=== PATIENT | female | born 1945 | race Caucasian/White ===

== ENCOUNTER 2016-04-15 06:48 | Day surgery (SDC) | payer MEDICARE, OTHER ==
[~2016-04-15] VITALS: Ht 172.7 cm; Wt 90.7 kg
[~2016-04-15 06:48] MED LIST: AC500T PO; ALPR.5T PO; ALPR1T PO; AMLO1TAB4 PO; ATEN-158 PO; CALC-80 PO; FENO48TA PO; FOLI0.4T2 PO; FOLI1TAB6 PO; FURO40TA4 PO; LANS30CA PO; LOSA1TAB19 PO; META800T5 PO; NFBIOT1000 PO; OMEG1CAP51 PO; SCR1T1 PO; TIOT18CA IH
[2016-04-15] MEDS ORDERED: LIDOCAINE 1% INJ 20 ML (XYLOCAINE) VIAL ONE (06:56)
[2016-04-15] MEDS ORDERED: HEParin (CATH LAB) 0 ML IV ONE (06:56)
[2016-04-15] MEDS ORDERED: NS IV 1000 ML 1,000 ML ONE (06:56)
[2016-04-15 07:22] VITALS: BP 181/88
[2016-04-15] MEDS ORDERED: NS IV 1000 ML 1,000 ML IV SCH (07:30)
[2016-04-15 07:31] LABS: RED BLOOD COUNT 4.29 10^6/uL (4.35-5.85); RED CELL DISTRIBUTION WIDTH 13.8 % (10.0-14.5); WHITE BLOOD COUNT 15.5 10^3/uL (4.3-11.0)
[2016-04-15 07:33] LABS: BILIRUBIN,URINE NEGATIVE (NEGATIVE); KETONES,URINE NEGATIVE (NEGATIVE); LEUKOCYTE ESTERASE ,URINE 3+ (NEGATIVE); NITRITE,URINE POSITIVE (NEGATIVE); PH,URINE 5 (5-9); PROTEIN,URINE 3+ (NEGATIVE); UROBILINOGEN,URINE 1 MG/DL (NORMAL)
[2016-04-15 07:43] LABS: INR 1.1 (0.8-1.4); PROTHROMBIN TIME PATIENT 14.2 SEC (12.2-14.7)
[2016-04-15 07:46] LABS: WBC,URINE 50-100 /HPF
[2016-04-15 07:54] LABS: ALANINE AMINOTRANSFERASE 12 U/L (0-55); ANION GAP 12 MMOL/L (5-14); ASPARTATE AMINO TRANSFERASE 16 U/L (5-34); BILIRUBIN,TOTAL 0.6 MG/DL (0.1-1.0); BLOOD UREA NITROGEN 14 MG/DL (7-18); BUN/CREATININE RATIO 20; CALCIUM 9.6 MG/DL (8.5-10.1); CARBON DIOXIDE 21 MMOL/L (21-32); CHLORIDE 98 MMOL/L (98-107); GFR ESTIMATED > 60; GLUCOSE 159 MG/DL (70-105); POTASSIUM 3.5 MMOL/L (3.6-5.0); SODIUM 131 MMOL/L (135-145); TOTAL PROTEIN 7.5 G/DL (6.4-8.2)
--- NOTE | 2016-04-15 08:27 | Diagnostic Imaging Report ---
Portable upright radiograph of the chest. INDICATION: Abnormal stress test. Hypertension. FINDINGS: There is increased opacity in the retrocardiac region. The right lung is clear. The heart size is normal. No effusion or pneumothorax. The mediastinum and liz appear unremarkable. Surgical clips in the neck and cervical spine fusion hardware seen. IMPRESSION: Indeterminate increased opacity in the retrocardiac region, is possibly an artifact of superimposed tissues on this portable radiograph. Correlate clinically and if there is concern for atelectasis or consolidation in the left lower lobe, then better evaluation of the lesion with PA and lateral radiographs would be recommended. Dictated by: Dictated on workstation # [id number]
== END 2016-04-15 08:40 | disposition home or self-care (01) ==
LOC: CATH 06:48
PROVIDERS: ATTEND Internal Medicine Cardiovascular Disease
DX: R94.39 Abnormal result of other cardiovascular function study (principal); I25.10 Atherosclerotic heart disease of native coronary artery without angina pectoris; I10 Essential (primary) hypertension; E78.5 Hyperlipidemia, unspecified; Z53.09 Procedure and treatment not carried out because of other contraindication; Z79.899 Other long term (current) drug therapy
CPT/HCPCS: 36415; 71010; 80053; 81000; 85027; 85610; 85730; 87081; 87088; 87186; 93005

== ENCOUNTER 2016-04-22 11:15 | Day surgery (SDC) | payer MEDICARE, OTHER ==
[2016-04-22] VITALS (11 sets, daily range): BP systolic 130–144; BP diastolic 52–70
[~2016-04-22] VITALS: Ht 172.7 cm; Wt 88.5 kg
--- OUTSIDE RECORDS SUMMARY | 2016-04-22 11:17 | XMS REPORT | Continuity of Care Document ---
Author Author [facility] Organization [facility] Address Unknown Phone Unavailable Care Team Providers Care Audit Reviewer Name Role Phone MICHAELA KESSLER MD PCP Insurance Providers Payer Name Policy Number Subscriber Name Relationship [employer] [id number] Lani Branch 18 Self / Same As Patient [id number] Lani Branch 18 Self / Same As Patient Advance Directives Directive Response Recorded Date/Time Advance Directives Yes 04/15/16 7:22am Health Care Power of News Wire Photo Operator No 04/15/16 7:22am Organ Donor Yes 04/15/16 7:22am Resuscitation Status Full Code 04/15/16 7:22am Problems No problem information available. Medications Current Home Medications Medication Dose Units Route Directions Days/Qty Instructions Start Date Atenolol 50 Mg 50 Mg Oral Daily 02/28/13 Losartan/Hydrochlorothiazide 1 Each 1 Tab Oral Daily 100-12.5MG TABLET 02/28/13 Furosemide (Lasix) 40 Mg 40 Mg Oral Daily 02/28/13 Fenofibrate 48 Mg 48 Mg Oral Daily 02/28/13 Amlodipine/Atorvast Brian 1 Each 1 Tab Oral Bedtime 10-20MG TABLET 02/28 Lansoprazole 30 Mg 30 Mg Oral Daily 02/28/13 Tiotropium [place] 1 Inh 1 Cap Inhalation Daily 02/28/13 Calcium Carbonate/Vitamin D3 1 Each 1 Tab Oral Daily 02/28/13 Acetaminophen 500 Mg 1,000 Mg Oral Every 8HRS as needed for Pain TAKES 2 (500MG) TABLETS NEEDED FOR PAIN 02/28/13 [place]-3 Fatty Acids/Fish Oil 1 Each 1,000 Mg Oral Daily 02/28/13 Metaxalone 800 Mg 800 Mg Oral Four Times Daily 02/28/13 Folic Acid 0.4 Mg 0.4 Mg Oral Daily 02/28/13 Alprazolam 0.5 Mg 0.25 Mg Oral Twice A Day as needed for Anxiety NEEDED FOR ANXIETY 02/28/13 Past Home Medications Medication Directions Ordered Status Sucralfate 1 Gm Tab, 1 Gm Oral Before Meals And At Bedtime 02/28/13 Discontinued Folic Acid/Mv,Fe,Other Min 1 Each Tablet, 1 Tab Oral Daily 02/28/13 Discontinued Alprazolam Unknown Strength Tablet, Unknown Dose Oral Twice A Day as needed for Anxiety 02/28/13 Discontinued Biotin 1,000 Mcg Tablet, 1000 Mcg Oral Daily 02/28/13 Discontinued Social History Social History Problem Response Recorded Date/Time Recent Foreign Travel No 04/15/2016 7:22am Recent Infectious Disease Exposure No 04/15/2016 7:22am Smoking Status Former Smoker 04/15/2016 7:22am Query Response Start Date Stop Date Smoking Status Former Smoker Hospital Discharge Instructions No hospital discharge instructions. Plan of Care Discharge Date 04/15/16 8:40am Prescriptions See Medication Section Functional Status No functional status results. Allergies, Adverse Reactions, Alerts No known allergies. Immunizations No immunization records. Vital Signs Acute Vital Signs Vital Response Date/Time Temperature (Fahrenheit) 102.2 degrees F (97.6 - 99.5) 04/15/2016 8:39am Temperature (Calculated Celsius) 39.45210 degrees C (36.4 - 37.5) 04/15/2016 7:22am Temperature Source Tympanic 04/15/2016 8:39am Pulse Rate (adult) 103 bpm (60 - 90) 04/15/2016 7:22am Respiratory Rate 16 bpm (12 - 24) 04/15/2016 7:22am O2 Sat by Pulse Oximetry 94 % (88 - 100) 04/15/2016 7:22am Blood Pressure 181/88 mm Hg 04/15/2016 7:22am Blood Pressure Mean 119 mm Hg 04/15/2016 7:22am Pain Numeric Pain Scale 0-No Pain 04/15/2016 7:22am Height (Feet) 5 feet 04/15/2016 7:24am Height (Inches) 8.00 inches 04/15/2016 7:24am Height (Calculated Centimeters) 172.394595 cm 04/15/2016 7:24am Weight (Pounds) 200 pounds 04/15/2016 7:24am Weight (Ounces) 0.0 oz 04/15/2016 7:24am Weight (Calculated Grams) 83959.48 gm 04/15/2016 7:24am Weight (Calculated Kilograms) 90.932140 kilograms 04/15/2016 7:24am Calculated BMI 30.4 04/15/2016 7:24am Results Pending Laboratory Results Test Name Collection Date/Time Procedures Procedure Status Date Provider(s) Tracing only of electrocardiogram Active 04/15/16 YANCY MAC MD Encounters Encounter Location Arrival/Admit Date Discharge/Depart Date Attending Provider Departed [facility] 04/15/16 6:48am 8:40am YANCY MAC MD Registered Clinic [facility] 03/18/16 7:46am YANCY MAC MD
--- OUTSIDE RECORDS SUMMARY | 2016-04-22 11:18 | XMS REPORT | Continuity of Care Document ---
Author Author [facility] Organization [facility] Address Unknown Phone Unavailable Care Team Providers Care Pump Machine Operator Name Role Phone MICHAELA KESSLER MD PCP Insurance Providers Payer Name Policy Number Subscriber Name Relationship [employer] [id number] Lani Branch 19 Self / Same As Patient [id number] Lani Branch 18 Self / Same As Patient Advance Directives Directive Response Recorded Date/Time Advance Directives Yes 04/15/16 7:22am Health Care Power of Hot Blast Worker No 04/15/16 7:22am Organ Donor Yes 04/15/16 [...] Mg 30 Mg Oral Daily 02/28/13 Tiotropium [place] 1 Inh 1 Cap Inhalation Daily 02/28/13 Calcium Carbonate/Vitamin D3 1 Each 1 Tab Oral Daily 02/28/13 Acetaminophen 500 Mg 1,000 Mg Oral Every 8HRS as needed for Pain TAKES 2 (500MG) TABLETS NEEDED FOR PAIN 02/28/13 [place]-3 Fatty Acids/Fish Oil 1 Each 1,000 Mg [...] - 99.5) 04/15/2016 8:39am Temperature (Calculated Celsius) 39.42566 degrees C (36.4 - 37.5) 04/15/2016 7:22am [...] 8.00 inches 04/15/2016 7:24am Height (Calculated Centimeters) 172.171210 cm 04/15/2016 7:24am Weight (Pounds) 200 pounds 04/15/2016 7:24am Weight (Ounces) 0.0 oz 04/15/2016 7:24am Weight (Calculated Grams) 54743.48 gm 04/15/2016 7:24am Weight (Calculated Kilograms) 90.882663 kilograms 04/15/2016 7:24am Calculated BMI 30.4 04/15/2016 7:24am Results Pending Laboratory Results Test Name Collection Date/Time Procedures Procedure Status Date Provider(s) Tracing only of electrocardiogram Active 04/15/16 YANCY MAC MD Encounters Encounter Location Arrival/Admit Date Discharge/Depart Date Attending Provider Departed [facility] 04/15/16 6:48am 8:40am YANCY MAC MD Registered Clinic [facility] 03/18/16 7:46am YANCY MAC MD
[2016-04-22] MEDS ORDERED: LIDOCAINE 1% INJ 20 ML (XYLOCAINE) VIAL ONE (11:26)
[2016-04-22] MEDS ORDERED: NS IV 1000 ML 1,000 ML ONE (11:26)
[2016-04-22] MEDS ORDERED: HEParin (CATH LAB) 2,000 ML IV ONE (11:27)
[2016-04-22] MEDS ORDERED: NS IV 1000 ML 1,000 ML IV SCH ×2 (11:39→13:15)
[2016-04-22 12:00] LABS: BILIRUBIN,URINE NEGATIVE (NEGATIVE); KETONES,URINE NEGATIVE (NEGATIVE); LEUKOCYTE ESTERASE ,URINE 3+ (NEGATIVE); NITRITE,URINE POSITIVE (NEGATIVE); PH,URINE 7 (5-9); PROTEIN,URINE 2+ (NEGATIVE); UROBILINOGEN,URINE NORMAL (NORMAL)
[2016-04-22 12:02] LABS: MEAN PLATELET VOLUME 8.3 FL (7.4-10.4); RED BLOOD COUNT 4.38 10^6/uL (4.35-5.85); RED CELL DISTRIBUTION WIDTH 14.2 % (10.0-14.5); WHITE BLOOD COUNT 5.5 10^3/uL (4.3-11.0)
[2016-04-22 12:21] LABS: ALANINE AMINOTRANSFERASE 10 U/L (0-55); ALBUMIN 3.8 G/DL (3.2-4.5); ANION GAP 9 MMOL/L (5-14); ASPARTATE AMINO TRANSFERASE 21 U/L (5-34); BILIRUBIN,TOTAL 0.2 MG/DL (0.1-1.0); BLOOD UREA NITROGEN 14 MG/DL (7-18); BUN/CREATININE RATIO 19; CALCIUM 9.6 MG/DL (8.5-10.1); CARBON DIOXIDE 23 MMOL/L (21-32); CHLORIDE 104 MMOL/L (98-107); CREATININE SERUM 0.74 MG/DL (0.60-1.30); GFR ESTIMATED > 60; GLUCOSE 96 MG/DL (70-105); POTASSIUM 4.5 MMOL/L (3.6-5.0); SODIUM 136 MMOL/L (135-145); TOTAL PROTEIN 6.9 G/DL (6.4-8.2)
[2016-04-22 12:25] LABS: WBC,URINE 50-100 /HPF
[2016-04-22] MEDS ORDERED: MIDAZOLAM 5 MG/5 ML (VERSED) VIAL ONE (12:26)
[2016-04-22] MEDS ORDERED: fentaNYL INJECTION 100 MCG/2 ML AMP ONE (12:27)
--- NOTE | 2016-04-22 12:52 | Cardiac Procedure Note-CS/ASA ---
Pre-Procedure Note Pre-Op Procedure Note H&P Reviewed The H&P was reviewed, patient examined and no changes noted. Date H&P Reviewed: Apr 22, 2016 Time H&P Reviewed: 12:52 Conscious Sedation Pre-Proced Time Reviewed: 12:52 ASA Class: 3 Airway Mallampati Classification: ([place] appropriate class) I. II. III, IV Lungs Heart ASA score ASA 1: a normal healthy patient ASA 2: a patient with a mild systemic disease (mid diabetes, controlled hypertension, obesity x ASA 3: a patient with a severe systemic disease that limits activity (angina , COPD, prior Myocardial infarction) ASA 4: a patient with an incapacitating disease that is a constant threat to life (CHF, renal failure) ASA 5: a moribund patient not expected to survive 24 hrs. (ruptured aneurysm) ASA 6: a declared brain patient whose organs are being harvested. For emergent operations, add the letter E after the classification Grade 3 Sedation Plan: Analgesia, Amnesia, Plan communicated to team members, Discussed options with patient/fam, Discussed risks with patient/fam Note The patient is an appropriate candidate to undergo the planned procedure, sedation, and anesthesia. The patient immediately re-assessed prior to indication. YANCY MAC MD Apr 22, 2016 12:52
[2016-04-22] MEDS ORDERED: PATIENT MAY USE OWN MEDS, ALL PO SCH (13:15)
--- NOTE | 2016-04-22 13:17 | Discharge Inst-Post CATH ---
Discharge Inst-CATH Post Cardiac Cath D/C Inst Follow Up/Plan Appointment with Dr Hauser's office in 2-4 weeks CARDIAC CATH DISCHARGE INSTRUCTIONS *Hold Metformin for 48 hours post heart cath. ACTIVITY * Go Home directly and rest. * Limit activity of the leg (or wrist if it was used) for 7 days including aerobics, swimming, jogging, bicycling, etc. * Restrict stair-climbing for 7 days if possible, if not, climb up with your non -cath leg, then bring together on the same step. * Avoid lifting, pushing, pulling or excessive movement of the affected extremity for 7 days. * Customary sexual activity may be resumed after 2 days-use caution not to use a position that strains or causes pain to the affected extremity. * No driving for 24 hours. * NO SMOKING. * Avoid straining for bowel movements for 7 days. * Gentle walking on level ground is allowed. * Returning to work will depend on the type of procedure and the results. Your doctor will discuss this with you. CALL YOUR DOCTOR FOR ANY OF THE FOLLOWING: *If bleeding from the puncture site occurs- Apply gentle pressure to site with clean cloth and call your doctor or EMS. * If a knot or lump forms under the skin, increases in size, or causes pain. * If bruising appears to be worsening or moving further down your leg instead of disappearing. * Temperature above 101 F. CARE OF YOUR GROIN INCISION; * Bruising or purple discoloration of the skin near the puncture site is common. * You may shower only, no bathtub bathing for 5 days. Be careful to avoid slipping as your leg may feel stiff. * If a closure device was used on your femoral artery, please see the attached guide regarding care of the device and your leg. * REMOVE the dressing from your groin the next day after your procedure in the shower. CARE OF YOUR WRIST INCISION; * Bruising or purple discoloration of the skin near the puncture site is common. * You may shower. * DO NOT submerge wrist. * Remove dressing in 24 hours. YANCY HAUSER MD Apr 22, 2016 13:17
[2016-04-22] MEDS ORDERED: ATROPINE INJECTION 1 MG/10 ML SYR (ABBOTT) ONE (13:29)
--- NOTE | 2016-04-22 16:12 | Diagnostic Imaging Report ---
EXAMINATION: Portable upright radiograph of the chest. INDICATION: Infiltrate. FINDINGS: There is interstitial thickening, suggestive of pulmonary vascular congestion, more prominent in the left lung base. The heart size is at the upper limits of normal. There is no effusion or pneumothorax. The mediastinum and liz appear unremarkable. There is cervical spine fusion hardware and surgical clips seen. IMPRESSION: Prominent interstitial markings, more in the left lower lung, likely related to vascular congestion. An early left basilar infiltrate is not excluded. Correlate clinically and with followup exams. Dictated by: Dictated on workstation # [id number]
--- NOTE | 2016-04-23 13:00 | DISCHARGE SUMMARY ---
PROCEDURE PHYSICIAN: YANCY MAC DATE OF PROCEDURE: 04/22/2016 REFERRING PHYSICIAN: Dr. Crow Maldonado INDICATION: Coronary artery disease. BRIEF HISTORY: Mrs. Lamar is a 70-year-old lady with history of coronary artery disease. She had an abnormal stress test. She was scheduled for left heart catheterization, possible PTCA. PROCEDURE NOTE: After explaining the procedure to the patient, all pros and cons were explained. All questions were answered. The patient signed a consent, then she was placed on the cardiac catheterization laboratory. The right groin was prepped in a sterile fashion. Local anesthesia applied to the right groin. 6-Spanish sheath was placed in the right femoral artery. A combination of right and left Rena catheter were used to access the right and left coronary system. Multiple views were obtained. Pigtail catheter advanced to the left ventricular cavity. Pressure was measured, pullback LV to aorta was done. The aortic arch angiogram was done. At the end of the procedure, sheath was removed. Mynx device deployed. Hemostasis achieved. FINDINGS: HEMODYNAMICS: LV pressure is 149/16, end-diastolic pressure of 16, aortic pressure 145/58, mean of 54. No significant gradient across the aortic valve. ANATOMY: 1. Left main coronary artery is bifurcating to left anterior descending artery and left circumflex artery with mild disease, nonobstructive disease. 2. The left anterior descending artery, calcified artery with 40% stenosis proximal and midportion of the LAD, nonobstructive disease. 3. Left circumflex artery is moderate in size with no obstructive disease. 4. Right coronary artery is a calcified artery, dominant artery with 40 to 50% stenosis at the midportion, nonobstructive disease. Did not change significantly compared to 2013. 5. Left ventricular, end diastolic pressure is slightly elevated. 6. Aortic arch angiogram was done in the left anterior oblique. The aortic arch is normal in size. No dissection or aneurysm. Origin of the innominate artery carotid artery and subclavian artery appeared normal. CONCLUSION: 1. Calcified coronary system with 40% stenosis in the proximal and mid LAD, 40 to 50% stenosis at the mid right coronary artery, nonobstructive disease. 2. Slightly elevated left ventricular, end diastolic pressure. 3. Normal aortic arch and great neck vessels; some calcification at the body of the right dominant artery and origin of the left carotid calcification at the mid right innominate artery and origin of the right carotid artery. CONCLUSION: 1. 40% stenosis at the proximal and mid LAD, heavily calcified artery. 2. 40 to 50% stenosis mid right coronary artery, heavily calcified artery. 3. Slightly elevated left ventricular, end diastolic pressure. 4. Significant calcification noted in the body of the right innominate artery and the origin of the right carotid artery. Normal aortic arch otherwise. DISCUSSION AND RECOMMENDATION: Medical therapy is recommended. No intervention is needed. FINAL DIAGNOSES: 1. Coronary artery disease. 2. Hypertension. 3. Hyperlipidemia. 4. Carotid stenosis Job ID: [id number] Dictated Date: 04/22/2016 13:24:01 Track Repair Worker Date: 04/23/2016 12:58:13/thalia
== END 2016-04-22 20:00 | disposition home or self-care (01) ==
LOC: CATH 11:15 → ICU 14:10 → CATH 20:00
PROVIDERS: ATTEND Internal Medicine Cardiovascular Disease
DX: R94.39 Abnormal result of other cardiovascular function study (principal); I25.10 Atherosclerotic heart disease of native coronary artery without angina pectoris; I25.84 Coronary atherosclerosis due to calcified coronary lesion; I10 Essential (primary) hypertension; E78.5 Hyperlipidemia, unspecified; I65.23 Occlusion and stenosis of bilateral carotid arteries; Z87.891 Personal history of nicotine dependence; Z82.49 Family history of ischemic heart disease and other diseases of the circulatory system; Z79.899 Other long term (current) drug therapy
CPT/HCPCS: 36221; 36415; 71010; 80053; 81000; 85027; 87081; 87088; 87186; 93458

== ENCOUNTER → 2016-04-29 | Outpatient (CLI) | payer MEDICARE, OTHER ==
--- OUTSIDE RECORDS SUMMARY | 2016-04-29 10:44 | XMS REPORT | Continuity of Care Document ---
Author Author [facility] Organization [facility] Address Unknown Phone Unavailable Care Team Providers Care Rn Private Duty Name Role Phone MICHAELA KESSLER MD PCP Insurance Providers Payer Name Policy Number Subscriber Name Relationship [employer] [id number] Lani Lamar 19 Self / Same As Patient [facility] [id number] Lani Lamar Self / Same As Patient Advance Directives Directive Response Recorded Date/Time Advance Directives Yes 04/22/16 12:06pm Health Care Power of Digital Marketing Project Manager Y shree Lamar son 04/22/16 12:06pm Organ Donor Yes 04/22/16 12:06pm Resuscitation Status Full Code 04/22/16 12:06pm Problems Active Problems Medical Problem Onset Date Status Dyspnea Unknown Acute Medications Current Home Medications Medication Dose Units Route Directions Days/Qty Instructions Start Date Atenolol 50 Mg 50 Mg Oral Daily 02/28/13 Losartan/Hydrochlorothiazide 1 Each 1 Tab Oral Daily 02/28/13 Furosemide (Lasix) 40 Mg 40 Mg Oral Twice Per Week 02/28/13 Fenofibrate 48 Mg 48 Mg Oral Daily 02/28/13 Amlodipine/Atorvast Brian 1 Each 1 Tab Oral Bedtime 10-20MG TABLET 02/28 Lansoprazole 30 Mg 30 Mg Oral Daily 02/28/13 Tiotropium [place] 1 Inh 1 Cap Inhalation Daily 02/28/13 Calcium Carbonate/Vitamin D3 1 Each 1 Tab Oral Daily 02/28/13 Acetaminophen 500 Mg 1,000 Mg Oral Every 8HRS as needed for Pain TAKES 2 (500MG) TABLETS NEEDED FOR PAIN 02/28/13 [place]-3 Fatty Acids/Fish Oil 1 Each 1,000 Mg [...] Response Recorded Date/Time Recent Foreign Travel No 04/22/2016 12:07pm Recent Infectious Disease Exposure No 04/22/2016 12:07pm Smoking Status Former Smoker 04/22/2016 12:08pm Type Used Cigarettes 04/23/2016 8:17am Query Response Start Date Stop Date Smoking Status Former Smoker Hospital Discharge Instructions Patient Instructions Physician Instructions Follow Up/Plan Appointment with Dr Hauser's office in 2-4 weeks CARDIAC CATH DISCHARGE INSTRUCTIONS *Hold Metformin for 48 hours post heart cath. ACTIVITY * Go Home directly and rest. * Limit activity of the leg (or wrist if it was used) for 7 days including aerobics, swimming, jogging, bicycling, etc. * Restrict stair-climbing for 7 days if possible, if not, climb up with your non-cath leg, then bring together on the same step. * Avoid lifting, pushing, pulling or excessive movement of the affected extremity for 7 days. * Customary sexual activity may be resumed after 2 days-use caution not to use a position that strains or causes pain to the affected extremity. * No driving for 24 hours. * NO SMOKING. * Avoid straining for bowel movements for 7 days. * Gentle walking on level ground is allowed. * Returning to work will depend on the type of procedure and the results. Your doctor will discuss this with you. CALL YOUR DOCTOR FOR ANY OF THE FOLLOWING: *If bleeding from the puncture site occurs- Apply gentle pressure to site with clean cloth and call your doctor or EMS. * If a knot or lump forms under the skin, increases in size, or causes pain. * If bruising appears to be worsening or moving further down your leg instead of disappearing. * Temperature above 101 F. CARE OF YOUR GROIN INCISION; * Bruising or purple discoloration of the skin near the puncture site is common. * You may shower only, no bathtub bathing for 5 days. Be careful to avoid slipping as your leg may feel stiff. * If a closure device was used on your femoral artery, please see the attached guide regarding care of the device and your leg. * REMOVE the dressing from your groin the next day after your procedure in the shower. CARE OF YOUR WRIST INCISION; * Bruising or purple discoloration of the skin near the puncture site is common. * You may shower. * DO NOT submerge wrist. * Remove dressing in 24 hours. Plan of Care Discharge Date 04/22/16 8:00pm Instructions/Education Provided Biventricular Cardiac Pacemaker Placement (DC) Prescriptions See Medication Section Follow-up Orders Chest Pa/Lat (2 View Functional Status Query Response Date Recorded Patient Orientation Person Place Time Situation April 23, 2016 8:17am Comprehension Ability Understands Concepts April 22, 2016 7:30pm Allergies, Adverse Reactions, Alerts No known allergies. Immunizations No immunization records. Vital Signs Acute Vital Signs Vital Response Date/Time Temperature (Fahrenheit) 97.8 degrees F (97.6 - 99.5) 04/22/2016 8:00pm Temperature (Calculated Celsius) 36.25496 degrees C (36.4 - 37.5) 04/22/2016 7:00pm Temperature Source Tympanic 04/22/2016 8:00pm Pulse Rate (adult) 68 bpm (60 - 90) 04/22/2016 8:00pm Respiratory Rate 15 bpm (12 - 24) 04/22/2016 8:00pm O2 Sat by Pulse Oximetry 95 % (88 - 100) 04/22/2016 8:00pm Blood Pressure 130/59 mm Hg 04/22/2016 8:00pm Blood Pressure Mean 82 mm Hg 04/22/2016 7:30pm Pain Numeric Pain Scale 0-No Pain 04/22/2016 8:00pm Height (Feet) 5 feet 04/22/2016 12:05pm Height (Inches) 8.00 inches 04/22/2016 12:05pm Height (Calculated Centimeters) 172.441864 cm 04/22/2016 12:05pm Weight (Pounds) 195 pounds 04/22/2016 12:05pm Weight (Ounces) 0.0 oz 04/22/2016 12:05pm Weight (Calculated Grams) 56073.51 gm 04/22/2016 12:05pm Weight (Calculated Kilograms) 88.780024 kilograms 04/22/2016 12:05pm Calculated BMI 29.7 04/22/2016 12:05pm Capillary Refill Capillary Refill Less Than 3 Seconds 04/22/2016 7:45pm Results Laboratory Results Test Name Result Units Flags Reference Collection Date/Time Result Date/ Time Comments White Blood Count 15.5 10^3/uL H 4.3-11.0 04/15/2016 7:04/15/2016 7: 35am Red Blood Count 4.29 10^6/uL L 4.35-5.85 04/15/2016 7:04/15/2016 7: 35am Hemoglobin 12.9 G/DL 11.5-16.0 04/15/2016 7:04/15/2016 7:35am Hematocrit 37 % 35-52 04/15/2016 7:04/15/2016 7:35am Mean Corpuscular Volume 86 FL 80-99 04/15/2016 7:04/15/2016 7: 35am Mean Corpuscular Hemoglobin 30 PG 25-34 04/15/2016 7:04/15/2016 7: 35am Mean Corpuscular Hemoglobin Concent 35 G/DL 32-36 04/15/2016 7:02/2017 7:35am Red Cell Distribution Width 13.8 % 10.0-14.5 04/15/2016 7:2016 7:35am Platelet Count 380 10^3/uL 130-400 04/15/2016 7:04/15/2016 7:35am Mean Platelet Volume 9.0 FL 7.4-10.4 04/15/2016 7:04/15/2016 7: 35am Prothrombin Time 14.2 SEC 12.2-14.7 04/15/2016 7:04/15/2016 7: 45am INR Comment 1.1 0.8-1.4 04/15/2016 7:04/15/2016 7:45am INTERPRETIVE DATA SUGGESTED THERAPEUTIC RANGE FOR INR'S: VENOUS THROMBOSIS, PULMONARY EMBOLISM, OR PREVENTION OF SYSTEMIC EMBOLISM (EG. IN ATRIAL FIBRILLATION): 2.0 - 3.0 MECHANICAL PROSTHETIC HEART VALVES: 2.5 - 3.5* *NOTE: INR'S UP TO 4.5 MAY BE NECESSARY IN SELECTED GROUPS OF HIGH RISK PATIENTS. [employer] CONSENSUS CONFERENCE ON ANTITHROMBOTIC THERAPY (2000). Activated Partial Thromboplast Time 41 SEC H 24-35 04/15/2016 7:02/2017 7:45am Urine Color YELLOW 04/15/2016 7:04/15/2016 7:48am Urine Clarity VERY CLOUDY * 04/15/2016 7:04/15/2016 7:48am Urine pH 5 5-9 04/15/2016 7:04/15/2016 7:48am Urine Specific [place] 1.025 * 1.016-1.022 04/15/2016 7:2016 7:48am Urine Protein 3+ * NEGATIVE 04/15/2016 7:04/15/2016 7:48am Urine Glucose (UA) NEGATIVE NEGATIVE 04/15/2016 7:04/15/2016 7: 48am Urine RBC (Auto) 5+ * NEGATIVE 04/15/2016 7:04/15/2016 7:48am Urine Ketones NEGATIVE NEGATIVE 04/15/2016 7:04/15/2016 7:48am Urine Nitrite POSITIVE * NEGATIVE 04/15/2016 7:04/15/2016 7:48am Urine Bilirubin NEGATIVE NEGATIVE 04/15/2016 7:04/15/2016 7: 48am Urine Urobilinogen 1 MG/DL NORMAL 04/15/2016 7:04/15/2016 7:48am Urine Leukocyte Esterase 3+ * NEGATIVE 04/15/2016 7:04/15/2016 7: 48am Urine RBC 10-25 /HPF * 04/15/2016 7:04/15/2016 7:48am MICROSCOPIC EXAM DONE ON 2ML SPECIMEN Urine WBC 50-100 /HPF * 04/15/2016 7:04/15/2016 7:48am Urine Bacteria LARGE /HPF * 04/15/2016 7:04/15/2016 7:48am Urine Squamous Epithelial Cells 5-10 /HPF 04/15/2016 7:2016 7:48am Urine Crystals NONE /LPF 04/15/2016 7:04/15/2016 7:48am Urine Casts NONE /LPF 04/15/2016 7:04/15/2016 7:48am Urine Mucus NEGATIVE /LPF 04/15/2016 7:04/15/2016 7:48am Urine Culture Indicated YES 04/15/2016 7:04/15/2016 7:48am Sodium Level 131 MMOL/L L 135-145 04/15/2016 7:04/15/2016 7:56am Potassium Level 3.5 MMOL/L L 3.6-5.0 04/15/2016 7:04/15/2016 7:56am Chloride Level 98 MMOL/L 98-107 04/15/2016 7:04/15/2016 7:56am Carbon Dioxide Level 21 MMOL/L 21-32 04/15/2016 7:04/15/2016 7: 56am Anion Gap 12 MMOL/L 5-14 04/15/2016 7:04/15/2016 7:56am Blood Urea Nitrogen 14 MG/DL 7-18 04/15/2016 7:04/15/2016 7:56am Creatinine 0.70 MG/DL 0.60-1.30 04/15/2016 7:04/15/2016 7:56am BUN/Creatinine Ratio 20 04/15/2016 7:04/15/2016 7:56am Estimat Glomerular Filtration Rate > 60 04/15/2016 7:2016 7:56am GFR INTERPRETIVE DATA UNITS FOR ESTIMATED GFR (eGFR): mL/min/1.73 M2 REFERENCE RANGE FOR ESTIMATED GFR (eGFR) eGFR NORMAL eGFR >60 MODERATELY DECREASED eGFR 30-59 SEVERLY DECREASED eGFR 15-29 KIDNEY FAILURE <15 (OR DIALYSIS) Glucose Level 159 MG/DL H 70-105 04/15/2016 7:04/15/2016 7:56am Calcium Level 9.6 MG/DL 8.5-10.1 04/15/2016 7:24am 04/15/2016 7:56am Total Bilirubin 0.6 MG/DL 0.1-1.0 04/15/2016 7:24am 04/15/2016 7:56am Alkaline Phosphatase 81 U/L 40-136 04/15/2016 7:24am 04/15/2016 7:56am Aspartate Amino Transf (AST/SGOT) 16 U/L 5-34 04/15/2016 7:24am 2016 7:56am Alanine Aminotransferase (ALT/SGPT) 12 U/L 0-55 04/15/2016 7:24am 04/15 7:56am Total Protein 7.5 G/DL 6.4-8.2 04/15/2016 7:24am 04/15/2016 7:56am Albumin 4.0 G/DL 3.2-4.5 04/15/2016 7:24am 04/15/2016 7:56am Pending Laboratory Results Test Name Collection Date/Time Microbiology Results Procedure Source Result Collection Date/Time Result Date/Time MRSA Screen Nasal MRSA not isolated 04/15/2016 7:24am 04/16/2016 2:06pm Urine Culture Urine, Clean Catch ESCHERICHIA COLI 04/15/2016 7:19am 2016 9:17am Procedures Procedure Status Date Provider(s) Tracing only of electrocardiogram Completed 04/15/16 YANCY HAUSER MD Encounters Encounter Location Arrival/Admit Date Discharge/Depart Date Attending Provider Departed [facility] 04/22/16 11:15am 04/22/16 8:00pm YANCY HAUSER MD Departed [facility] 04/15/16 6:48am 8:40am YANCY HAUSER MD Recent Diagnosis Dyspnea
--- NOTE | 2016-04-29 11:20 | Diagnostic Imaging Report ---
INDICATION: Shortness of breath. EXAMINATION: PA and lateral chest. FINDINGS: There is a consolidation at the left posterior medial lung base. This appears more organized than on the comparison study from 04/22/2016. There are no effusions or pneumothoraces. IMPRESSION: Consolidating infiltrate in the left medial lung base is suspicious for pneumonia. Dictated by: Dictated on workstation # [id number]
== END ==
LOC: RAD 10:40
PROVIDERS: ATTEND Physician Assistant
DX: R06.00 Dyspnea, unspecified (principal)
CPT/HCPCS: 71020

== ENCOUNTER 2016-10-05 09:49 | Emergency (ER) | payer MEDICARE, OTHER ==
[~2016-10-05] VITALS: Ht 170.2 cm; Wt 77.1 kg
[2016-10-05] MEDS ORDERED: DIAZEPAM 5 MG (VALIUM) TABLET PO ONE (10:30)
--- NOTE | 2016-10-05 10:47 | ED Lower Extremity ---
General Chief Complaint: Lower Extremity Stated Complaint: RT KNEE PAIN Nursing Triage Note: pt reports r knee pain since wednesday. pt states she was walking and heard a pop. Nursing Sepsis Screen: No Definite Risk Source: patient Exam Limitations: no limitations History of Present Illness Time seen by provider: 10:05 Initial Comments This 70-year-old woman presents to emergency room with complaints of right knee pain that has been problematic over the last several days. Pain is in the anterior portion of the knee and she sometimes feels like her knee "gives out". She has been using a neoprene sleeve and ice. She has taken Tylenol for the pain. Her primary care provider was not immediately available due to the holiday. Allergies and Home Medications Allergies Coded Allergies: No Known Drug Allergies (Unverified , 02/28/13) Home Medications Acetaminophen 500 Mg Tablet, 1,000 MG PO Q8H PRN for PAIN, (Reported) TAKES 2 (500MG) TABLETS NEEDED FOR PAIN Alprazolam 0.5 Mg Tablet, 0.25 MG PO BID PRN for ANXIETY, (Reported) NEEDED FOR ANXIETY Amlodipine/Atorvast Brian 1 Each Tablet, 1 TAB PO HS, (Reported) 10-20MG TABLET Atenolol 50 Mg Tab, 50 MG PO DAILY, (Reported) Calcium Carbonate/Vitamin D3 1 Each Tablet, 1 TAB PO DAILY, (Reported) Fenofibrate 48 Mg Tab, 48 MG PO DAILY, (Reported) Folic Acid 0.4 Mg Tablet, 0.4 MG PO DAILY, (Reported) Furosemide 40 Mg Tablet, 40 MG PO TWICE PER WEEK, (Reported) Lansoprazole 30 Mg Capsule.dr, 30 MG PO DAILY, (Reported) Losartan/Hydrochlorothiazide 1 Each Tablet, 1 TAB PO DAILY, (Reported) Metaxalone 800 Mg Tablet, 800 MG PO QID, (Reported) [place]-3 Fatty Acids/Fish Oil 1 Each Capsule, 1,000 MG PO DAILY, (Reported) Tiotropium [place] 1 Inh Aerp, 1 CAP IH DAILY, (Reported) Constitutional: no symptoms reported : No Musculoskeletal: see HPI Skin: no symptoms reported Psychiatric/Neurological: No Symptoms Reported Past Rhhrkdx-Ofrspl-Zlfxfj Hx Patient Social History Alcohol Use: Denies Use Recreational Drug Use: No Smoking Status: Former Smoker Type Used: Cigarettes Recent Foreign Travel: No Contact w/Someone Who Travel: No Recent Infectious Disease Expo: No Immunizations Up To Date Date of Pneumonia Vaccine: Jan 16, 2014 Date of Influenza Vaccine: Jan 27, 2016 Surgeries HX Surgeries: Yes Surgeries: Appendectomy, Section, Gallbladder, Hysterectomy, Vascular Surgery (right CEA) Respiratory Hx Respiratory Disorders: No Cardiovascular Hx Cardiac Disorders: Yes Cardiac Disorders: Chronic Edema/Swelling, High Cholesterol Neurological Hx Neurological Disorders: No Reproductive System : No Genitourinary Hx Genitourinary Disorders: No Gastrointestinal Hx Gastrointestinal Disorders: No Musculoskeletal Hx Musculoskeletal Disorders: No Endocrine Hx Endocrine Disorders: No HEENT HX ENT Disorders: No Cancer Hx Cancer: No Psychosocial Hx Psychiatric Problems: Yes Behavioral Health Disorders: Anxiety Physical Exam Vital Signs Vital Sign - Last 12Hours 10/05/16 10:02 Temp 97.9 Pulse 65 Resp 18 B/P (MAP) 160/77 Pulse Ox 97 Capillary Refill : Less Than 3 Seconds General Appearance: WD/WN, no apparent distress HEENT: normal ENT inspection Cardiovascular: regular rate, rhythm, no edema, no murmur Respiratory: lungs clear, normal breath sounds, no respiratory distress, no accessory muscle use Legs: bilateral leg non-tender, bilateral leg normal inspection, bilateral leg normal range of motion, bilateral leg no evidence of injury Knees: left knee non-tender, left knee normal inspection, bilateral knee normal range of motion, bilateral knee swelling (mild effusion bilaterally), right knee other (tenderness to palpation in the lateral joint space and inferior to the patella. Pain with movement of the patella as well. There is pain beneath the patella and palpable crepitus with range of motion of the knee) Ankles: bilateral ankle normal inspection, bilateral ankle no evidence of injury Neurologic/Tendon: normal sensation, normal motor functions, normal tendon functions Neurologic/Psychiatric: chief design branch II-XII nml as tested, no motor/sensory deficits, alert, normal mood/affect, oriented x 3 Skin: normal color, warm/dry Progress/Results/Core Measures Results/Orders My Orders Orders - ARNALDO CADET MD Knee, Right, 4 Views Or > (10/05/16 10:11) Diazepam Tablet (Valium Tablet) (10/05/16 10:30) Vital Signs/I&O Vital Sign - Last 12Hours 10/05/16 10:02 Temp 97.9 Pulse 65 Resp 18 B/P (MAP) 160/77 Pulse Ox 97 Blood Pressure Mean: 104 Progress Note : Progress Note No significant abnormalities were found on x-ray to account for patient's pain. She was advised to treat with NSAID therapy and follow up with her primary care provider for further assessment. MRI may need to be considered for assessment of soft tissue injury if NSAID therapy is not helpful. Diagnostic Imaging Diagonstic Imaging: Xray Plain Films/CT/US/NM/MRI: knee Comments X-rays of the right knee viewed by me and report reviewed. See report below: NAME: MERY BRANCH [facility] REC#: [id number] PT STATUS: REG ER : 1945 PHYSICIAN: ARNALDO CADET MD ADMIT DATE: 10/05/16/ER Draft Date of Exam:10/05/16 KNEE, RIGHT, 4 VIEWS OR > EXAMINATION: Four views of the right knee. INDICATION: Right knee pain. FINDINGS: There is mild narrowing of the joint space in the medial compartment. Small osteophyte formation at the superior aspect of the patella is seen. No fracture, dislocation, or radiopaque foreign body is noted. There is a small suprapatellar effusion suggested. IMPRESSION: Mild degenerative changes. Small suprapatellar effusion. Dictated on workstation # [id number] Dict: 10/05/16 1042 Trans: 10/05/16 1051 [id number] Interpreted by: MISTI LI MD Departure Impression Impression: Primary Impression: Right knee pain Qualified Codes: M25.561 - Pain in right knee Disposition: 01 HOME, SELF-CARE Condition: Improved Departure-Patient Inst. Decision time for Depature: 10:58 Referrals: MICHAELA KESSLER MD (PCP/Family) Primary Care Physician Patient Instructions: Knee Pain Add. Discharge Instructions: Try using NSAID therapy with naproxen up to 500 mg twice daily or ibuprofen up to 600 mg every 6 hours as needed for pain. Add Tylenol (acetaminophen) up to 1000 mg every 6 hours as needed for additional pain relief. Compressive wrapping, elevation, and icing may also be beneficial. Follow-up with your primary care provider soon as possible. If treatment with NSAIDs is not effective after a week or two, MRI may be necessary for further evaluation of your knee. All discharge instructions reviewed with patient and/or family. Voiced understanding. ARNALDO CADET MD Oct 05, 2016 10:47
--- NOTE | 2016-10-05 10:52 | Diagnostic Imaging Report ---
EXAMINATION: Four views of the right knee. INDICATION: Right knee pain. FINDINGS: There is mild narrowing of the joint space in the medial compartment. Small osteophyte formation at the superior aspect of the patella is seen. No fracture, dislocation, or radiopaque foreign body is noted. There is a small suprapatellar effusion suggested. IMPRESSION: Mild degenerative changes. Small suprapatellar effusion. Dictated by: Dictated on workstation # [id number]
[2016-10-05 11:12] VITALS: BP 135/78
== END 2016-10-05 11:12 | disposition home or self-care (01) ==
LOC: EDUNIT# 09:49 → ER 09:51
DX: M25.561 Pain in right knee (principal); E78.00 Pure hypercholesterolemia, unspecified; R60.0 Localized edema; F41.9 Anxiety disorder, unspecified; Z87.891 Personal history of nicotine dependence
CPT/HCPCS: 73564; 99283

== ENCOUNTER 2016-11-30 09:44 | Outpatient (CLI) | payer MEDICARE, OTHER ==
[~2016-11-30] VITALS: Ht 170.2 cm; Wt 98.9 kg
[2016-11-30 10:01] VITALS: BP 127/69
== END 2016-11-30 10:20 ==
LOC: PREOP 09:44
PROVIDERS: ATTEND Orthopaedic Surgery
DX: Z01.818 Encounter for other preprocedural examination (principal); S83.281A Other tear of lateral meniscus, current injury, right knee, initial encounter; S83.241A Other tear of medial meniscus, current injury, right knee, initial encounter; X58.XXXA Exposure to other specified factors, initial encounter; Y99.8 Other external cause status
CPT/HCPCS: 87081

== ENCOUNTER 2016-12-02 09:54 | Day surgery (SDC) | payer MEDICARE, OTHER ==
--- NOTE | 2016-11-24 14:02 | HISTORY AND PHYSICAL ---
DATE OF SERVICE: REASON FOR ADMISSION: Outpatient surgery on 12/02/2016 for right knee arthroscopy. HISTORY OF PRESENT ILLNESS: The patient is a 70-year-old female with a 2-month history of progressively worsening right knee pain and swelling. She was walking and heard a pop. She underwent an injection, which provided only temporary relief of her symptoms. She has had continued knee pain with swelling, catching and locking. She reports functional impairment and due to failure to improve with conservative measures patient has elected to proceed with surgical intervention. REVIEW OF SYSTEMS: No chest pain. No shortness of breath. No dysuria. PAST MEDICAL HISTORY: Coronary artery disease, COPD, hyperlipidemia, hypertension and osteoarthritis. PAST SURGICAL HISTORY: Appendectomy, , cholecystectomy, hysterectomy and vascular. FAMILY HISTORY: Noncontributory. PRIMARY CARE PROVIDER: Dr. Maldonado. MEDICATIONS: Alprazolam, atenolol, Cad[place], TriCor, folic acid, losartan, Lasix, metaxalone, Metanx, Prevacid, Spiriva, calcium and Tylenol. SOCIAL HISTORY: The patient is a former smoker. She denies alcohol use. She has mild disc space narrowing throughout her knee on radiographs. PHYSICAL EXAMINATION: GENERAL: The patient is well developed, well nourished, in no acute distress. HEENT: Normocephalic, atraumatic. Pupils are equal, round and reactive to light. Oropharynx is clear. NECK: Supple. No lymphadenopathy. LUNGS: Clear to auscultation bilaterally. HEART: Regular rate and rhythm. ABDOMEN: Soft, nontender and nondistended. EXTREMITIES: The patient ambulates with an antalgic gait on the right. She has a moderate effusion. No skin lesions noted. Sensation is intact throughout. She has negative straight leg raise. Range of motion is 0/0/130. No varus or valgus laxity. Negative Mckayla. Negative anterior and posterior drawer. She is tender along her medial and lateral joint lines and has pain with Miguel A's medially and laterally. She has patellofemoral crepitus and pain with patellar loading. 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 PLAN: Right knee arthroscopy with partial meniscectomies and chondroplasty. The risks, benefits, options, ramifications and recovery have been discussed at length with the patient. She understands and wishes to proceed. Job ID: [id number] DocumentID: [id number] Dictated Date: 11/24/2016 09:45:34 Hand Engraver Date: 11/24/2016 12:00:03 Dictated By: JANNIE FOFANA MD
[~2016-12-02] VITALS: Ht 170.2 cm; Wt 98.9 kg
[2016-12-02 09:53] VITALS: BP 138/73
[2016-12-02] MEDS ORDERED: FAMOTIDINE 20MG/2ML IV (PEPCID) ONE (10:13)
[2016-12-02] MEDS ORDERED: ceFAZolin 1 GM/NS 50 ML IVPB IV ONE ×2 (10:15)
[2016-12-02] MEDS ORDERED: CATHETER FLUSH 10 ML SYR IV PRN (10:15)
[2016-12-02] MEDS ORDERED: LACTATED RINGERS 1,000 ML IV PRN (10:16)
[2016-12-02] MEDS ORDERED: BUPIVACAINE 0.25% 30 ML (SENSORCAINE) VIAL ONE (10:17)
[2016-12-02] MEDS ORDERED: morphine PF (DURAMORPH) 10 MG/10 ML AMP ONE (10:17)
[2016-12-02] MEDS ORDERED: FAMOTIDINE 20MG/2ML IV (PEPCID) IV ONE (10:30)
[2016-12-02] MEDS ORDERED: LACTATED RINGERS 1,000 ML IV ONE (10:42)
[2016-12-02] MEDS ORDERED: ONDANSETRON 4 MG/2 ML (SDV) Z0FRAN ONE ×2 (10:42→11:48)
[2016-12-02] MEDS ORDERED: DEXAMETHASONE 10 MG/ML (DECADRON) 1 ML VIAL ONE (10:42)
[2016-12-02] MEDS ORDERED: fentaNYL INJECTION 100 MCG/2 ML AMP ONE (10:42)
[2016-12-02] MEDS ORDERED: proPOfol 200 MG/20 ML (DIPRIVAN) VIAL IV ONE (10:42)
[2016-12-02] MEDS ORDERED: SEVOFLURANE (ULTANE) 15 ML INHAL SOLN ONE ×3 (10:42→10:57)
[2016-12-02] MEDS ORDERED: LIDOCAINE PF 2% 5 ML (XYLOCAINE) VIAL ONE (10:42)
[2016-12-02] MEDS ORDERED: MIDAZOLAM 2 MG/2 ML (VERSED) VIAL ONE (10:43)
--- NOTE | 2016-12-02 11:16 | Progress Note-Pre Operative ---
Pre-Operative Progress Note H&P Reviewed The H&P was reviewed, patient examined and no changes noted. Date Seen by Provider: Dec 02, 2016 Time Seen by Provider: 11:15 Date H&P Reviewed: Dec 02, 2016 Time H&P Reviewed: 11:15 Pre-Operative Diagnosis: right knee medical and lateral meniscal tears and chondromalacia JANNIE FOFANA MD Dec 02, 2016 11:16
--- NOTE | 2016-12-02 11:17 | Progress Note-Post Operative ---
Post-Operative Progess Note Surgeon (s)/Machine Operator Replanter (s) Surgeon JANNIE FOFANA MD Machine Operator Replanter: Hugo Leroy Pre-Operative Diagnosis right knee medical and lateral meniscal tears and chondromalacia Post-Operative Diagnosis right knee medial and lateral meniscal tears and chondromalacia of the patella, medial femoral condyle and lateral tibial plateau Procedure & Operative Findings Date of Procedure 12/02/16 Procedure Performed/Findings right knee arthroscopic partial medial and lateral meniscectomies and chondroplasty of the patella, medial femoral condyle and lateral tibial plateau Anesthesia Type GETA Estimated Blood Loss Estimated blood loss (mL): minimal Specimens/Packing Specimens Removed none Packing: none JANNIE FOFANA MD Dec 02, 2016 11:17
[2016-12-02] MEDS ORDERED: HYDROcodone/APAP 7.5 MG/325 MG (LORTAB, LORCET PLUS) TABLET PO PRN (11:30)
[2016-12-02] MEDS ORDERED: morphine INJ 10 MG/ML 1ML (SYR OR VIAL) ONE (11:48)
[2016-12-02] MEDS ORDERED: HYDROmorphone (DILAUDID) 2 MG/ML VIAL ONE (11:48)
[2016-12-02] MEDS ORDERED: morphine INJ 10 MG/ML 1ML (SYR OR VIAL) IVP PRN (12:15)
[2016-12-02] MEDS ORDERED: ONDANSETRON 4 MG/2 ML (SDV) Z0FRAN IVP PRN (12:15)
[2016-12-02] MEDS ORDERED: HYDROmorphone (DILAUDID) 2 MG/ML VIAL IVP PRN (12:15)
[2016-12-02 13:30] VITALS: BP 134/106
[2016-12-02 14:15] VITALS: BP 142/84
[2016-12-02] MEDS ORDERED: HYDR-3816 PO (14:39)
[2016-12-02 14:45] VITALS: BP 140/78
--- NOTE | 2016-12-02 14:56 | OPERATIVE REPORT ---
DATE OF SERVICE: 12/02/2016 PREOPERATIVE DIAGNOSES: 1. Right knee medial meniscal tear. 2. Right knee lateral meniscal tear. 3. Right knee chondromalacia of the patella. POSTOPERATIVE DIAGNOSES: 1. Right knee medial meniscal tear. 2. Right knee lateral meniscal tear. 3. Right knee chondromalacia of the patella. 4. Right knee chondromalacia of the medial femoral condyle. 5. Right knee chondromalacia of the lateral tibial plateau. PROCEDURES PERFORMED: 1. Right knee arthroscopic partial medial meniscectomy. 2. Right knee arthroscopic partial lateral meniscectomy. 3. Right knee arthroscopic chondroplasty of the patella. 4. Right knee arthroscopic chondroplasty of the medial femoral condyle. 5. Right knee arthroscopic chondroplasty of the lateral tibial plateau. SURGEON: Dr. Jose Chand. CUT OUT STITCHER: Hugo Leroy, who assisted throughout the procedure and closed the incision. ANESTHESIA: General endotracheal by Hu Marsh CRNA. TOURNIQUET TIME: Not applicable. ESTIMATED BLOOD LOSS: Minimal. DRAINS: None. COMPLICATIONS: None. POSTOPERATIVE PLAN: Routine arthroscopy protocol. The patient was transported to the recovery room awake and in stable condition. STATEMENT OF MEDICAL NECESSITY: The patient is a 70-year-old female with medial and lateral right knee pain with associated swelling, catching and locking. She had undergone treatment with injections, anti-inflammatories, and rest without relief. Due to functional impairment, and failure to improve with conservative measures, the patient elected to proceed with surgical intervention. Examination under anesthesia revealed mild valgus alignment. Range of motion was 0/2/130. No varus valgus flexion, negative anterior and posterior drawer, negative pivot shift, negative Mckayla. ARTHROSCOPIC FINDINGS: The patella demonstrated grade 4 chondral loss superiorly in a 15 x 15 area was surrounding grade 3 flaps periphery inferiorly. Trochlea demonstrated no gross chondral abnormalities. The medial and lateral gutters were clear. The lateral compartment demonstrated a radial tear of the posterior horn/body junction of the meniscus involving approximately 30% of the junction. In addition, there were grade 3 chondral flaps over the central portion of the tibial plateau in a 10 x 10 area. The ACL and PCL were intact. The medial compartment demonstrated a horizontal cleavage tear of the posterior horn of the meniscus involving the approximately one-third of the posterior horn. In addition, there were grade 2 chondral flaps centrally in a 15 x 15 area over the medial femoral condyle. DESCRIPTION OF PROCEDURE: After risks and benefits of the procedure were discussed and questions were answered and informed consent was signed and placed on the chart, the operative site was confirmed in the preoperative holding area and initialed by the surgeon. The patient was then transported to the operating room and after adequate levels of general endotracheal anesthetic were obtained, a time-out was called confirming the operative site. Examination under anesthesia was performed with the above findings noted. The right lower extremity was prepped and draped in the usual sterile fashion. The knee joint was injected with 60 mL of fluid in standard inferolateral portals placed. An inferomedial portal was placed. A diagnostic arthroscopy was carried out with the above findings noted. The unstable chondral flaps on the patella were debrided with a shaver back to a stable edge. The scope was then redirected into the lateral compartment where the unstable chondral flaps on the lateral tibial plateau were debrided with a shaver back to a stable edge and the lateral meniscal tear was debrided with the biter and shaver, removing approximately one-third at the junction. This was carefully probed with no further tear or instability noted. The scope was then redirected into the medial compartment where the unstable chondral flaps on the medial femoral condyle were debrided shaver back to a stable edge and the posterior horn of the medial meniscus debrided with a biter and shaver removing approximately one-third of the posterior horn. This was carefully probed. There was no further tearing or instability. The knee was copiously irrigated. Portal sites were closed with 3-0 nylon in subcuticular fashion. The knee was injected with Duramorph. The portal sites were infiltrated with plain Marcaine and soft dressing was applied. The patient was transferred to the recovery room awake and in stable condition. Job ID: [id number] DocumentID: [id number] Dictated Date: 12/02/2016 12:10:53 Pin Drafter Operator Date: 12/02/2016 14:55:28 Dictated By: JOSE CHAND MD
--- NOTE | 2016-12-02 15:25 | Physical Therapy Ortho Eval ---
PT Orthopedic Evaluation Type of Surgery Knee Scope (right) Prior Level of Function Current Living Status: Spouse Locomotion (Upon Admit): Independent Established Durable Medical Eq: Front Wheeled Walker Subjective Subjective Groggy. Agrees to PT. Entry Into Home: Stairs With Railing Steps Into Home: 3 Motor Control Motor Control: Motor Control WNL ROM ROM: WFL, except focal deficit (right knee flexion to 60 degrees) Strength Strength: Gen Weak,No Focal Deficit (hip/quads 3/5) Transfer Transfers (B, C, W/C) (FIM): 5 (supervision post treatment as well.) Gait Gait Assistive Device: FWW Weight Bearing Restriction: Weight Bearing/Tolerated Location Restriction: R LE Distance (FIM): 3=150 ft Gait Level of Assist: 5 (supervision due to pt being groggy; supervision post treatment as well. ) Summary/Comments Safe gait, pt still very sleep post anesthesia Treatment Rendered Treatment: Therapeutic Exercises, Gait Train, Step Train Exercise Instruction: Quad Sets, Straight Leg Raise, Heel Slides Assessment/Goals Goal Time Frame: 1 Visit Understands HEP: Yes (spouse verbalized understanding. ) Safe Ambulation: Yes (with supervision) Plan Treatment Plan: Discharge PT/Family Agrees to Plan: Yes Time Time In: 1410 Time Out: 1434 Total Billed Treatment Time: 24 Billed Treatment Time visit EVL Yes PT/OT Therapy GCodes Therapy Functional Limitation: Physical Therapy Test(s)/Tool used to determine: Level of Assistance Scale Functional Limitation-Current Charge Code: MOBCUR Modifier: CJ Functional Limitation-Goal Charge Code: MOBGOAL Modifier: CJ Functional Limitation-D/C Charge Codes: MOBDC Modifier: ABRAHAM SALDIVAR PT Dec 02, 2016 15:25
== END 2016-12-02 14:55 | disposition home or self-care (01) ==
LOC: SDC 09:54
PROVIDERS: ATTEND Orthopaedic Surgery
DX: M23.8X1 Other internal derangements of right knee (principal); M22.41 Chondromalacia patellae, right knee; I25.10 Atherosclerotic heart disease of native coronary artery without angina pectoris; J44.9 Chronic obstructive pulmonary disease, unspecified; E78.5 Hyperlipidemia, unspecified; I10 Essential (primary) hypertension; K21.9 Gastro-esophageal reflux disease without esophagitis; I73.9 Peripheral vascular disease, unspecified; Z79.899 Other long term (current) drug therapy; Z87.891 Personal history of nicotine dependence

== ENCOUNTER → 2017-03-30 | Outpatient (CLI) | payer MEDICARE, OTHER ==
[~2017-03-30] MED LIST changes: +HYDR-3816 PO
--- NOTE | 2017-04-01 14:23 | Diagnostic Imaging Report ---
Bilateral screening mammogram 2D views with tomosynthesis. The current study was also evaluated with a Computer Aided Detection (CAD) system. INDICATION: Screening. No current complaints stated on the questionnaire. COMPARISON: 02/19/2016. FINDINGS: The breasts are composed of scattered fibroglandular densities. There are scattered benign-appearing calcifications. Allowing for technique and positional differences, no suspicious change is seen. IMPRESSION: No significant change. ACR BI-RADS Category 2: Benign findings. Result letter will be mailed to the patient. Note: At least 10% of breast cancer is not imaged by mammography. Dictated by: Dictated on workstation # [id number]
== END ==
LOC: RAD 10:47
PROVIDERS: ATTEND Internal Medicine
DX: Z12.31 Encounter for screening mammogram for malignant neoplasm of breast (principal)
CPT/HCPCS: 77067

== ENCOUNTER 2017-04-06 14:52 | Outpatient (RCR) | payer MEDICARE, OTHER ==
[~2017-04-06 14:52] MED LIST changes: +HYDR-34 PO; -HYDR-3816 PO
== END 2017-07-05 | disposition home or self-care (01) ==
LOC: LAB 14:52
PROVIDERS: ATTEND Nurse Practitioner
DX: R19.7 Diarrhea, unspecified (principal)

== ENCOUNTER 2017-11-12 18:19 | Inpatient (IN) | payer MEDICARE, OTHER ==
[~2017-11-12] VITALS: Ht 172.7 cm; Wt 98.9 kg
[2017-11-12 18:36] VITALS: BP 147/69
[2017-11-12 19:20] LABS: BASOPHILS % (AUTO) 0 % (0-10); EOSINOPHILS # (AUTO) 0.1 10^3/uL (0.0-0.3); EOSINOPHILS % (AUTO) 1 % (0-10); HEMATOCRIT 40 % (35-52); HEMOGLOBIN 13.4 G/DL (11.5-16.0); LYMPHOCYTES % (AUTO) 12 % (12-44); MEAN CORPUSCULAR HEMOGLOBIN 29 PG (25-34); MEAN CORPUSCULAR HGB CONC 34 G/DL (32-36); MEAN CORPUSCULAR VOLUME 85 FL (80-99); MEAN PLATELET VOLUME 9.1 FL (7.4-10.4); MONOCYTES # (AUTO) 1.3 X 10^3 (0.0-1.0); MONOCYTES % (AUTO) 8 % (0-12); NEUTROPHILS # (AUTO) 13.7 X 10^3 (1.8-7.8); NEUTROPHILS % (AUTO) 80 % (42-75); PLATELET COUNT 323 10^3/uL (130-400); RED BLOOD COUNT 4.66 10^6/uL (4.35-5.85); RED CELL DISTRIBUTION WIDTH 13.9 % (10.0-14.5); WHITE BLOOD COUNT 17.2 10^3/uL (4.3-11.0)
[2017-11-12] MEDS ORDERED: NS IV 1000 ML 1,000 ML IV ONE (19:25)
--- NOTE | 2017-11-12 19:29 | Diagnostic Imaging Report ---
INDICATION: Fall. EXAMINATION: Portable upright AP view of the chest was obtained. COMPARISON: Study of 04/29/2016. FINDINGS: Overall heart size and pulmonary vascularity are within normal limits. There is increased density seen in the lateral aspect of the lower right hemithorax which could be due to focal infiltrate. Left lung appears clear. Surgical findings are seen in the lower neck. IMPRESSION: Abnormal density in the right base may represent area of focal infiltrate. Followup PA and lateral views of the chest would be of use. Dictated by: Dictated on workstation # [id number]
[2017-11-12] MEDS ORDERED: diphenhydrAMINE 50 MG/ML INJ (BENADRYL) IVP ONE (19:30)
[2017-11-12 19:31] LABS: INR 1.1 (0.8-1.4); PROTHROMBIN TIME PATIENT 14.4 SEC (12.2-14.7)
--- NOTE | 2017-11-12 19:33 | ED General ---
General Chief Complaint: Trauma-Non Activation Stated Complaint: FALL/LETHARGIC Nursing Triage Note: Pt brought to ED via wheelchair. Pt taken directly to restroom for urine sample before going to rm 7. Pt either missed the hat or did not go, and the pt was unsure. Pt accompanied by daughter and . states pt fell at home last night from standing and then had a period of slurring her words. states the pt then "came out of it". Pt denies hitting head or LOC. states pt then began slurring words again this evening around 1730. During assessment, when asked, pt stated the month was January and the season was winter. Family states her speach pattern is not normal at this time. Pt has also been c/o headache. Nursing Sepsis Screen: No Definite Risk Source of Information: Patient Exam Limitations: No Limitations History of Present Illness Date Seen by Provider: Nov 12, 2017 Time Seen by Provider: 18:26 Initial Comments This 71-year-old woman is brought to the emergency room by her and daughter with confusion, slurring of her speech, and a fall last night. Has been reports he found her on the floor last night after having a fall. She denies any injury of any kind but did later admit that her neck was sore. The c -collar was placed. reports that her words were slurred when he found on the floor last night but she refused to come to the emergency room. Her speech was slurred again somewhat this evening. She was found to have a temperature of 101.6 on initial exam. She was not aware that she had a fever. She reports a mild cough. Review of her chart notes that she also has numerous sedating medications on her med list. She additionally complains of some mild headache and swollen feet. She is disoriented to place, date, season, etc. However, she is alert and conversant. Location Injury Occurred: home Allergies and Home Medications Allergies Coded Allergies: No Known Drug Allergies (Unverified , 11/30/16) Home Medications Acetaminophen 500 Mg Tablet, 1,000 MG PO Q8H PRN for PAIN, (Reported) TAKES 2 (500MG) TABLETS NEEDED FOR PAIN Alprazolam 0.5 Mg Tablet, 0.5 MG PO BID PRN for ANXIETY, (Reported) NEEDED FOR ANXIETY Amlodipine/Atorvast Brian 1 Each Tablet, 1 TAB PO HS, (Reported) 10-20MG TABLET Atenolol 50 Mg Tab, 50 MG PO DAILY, (Reported) Calcium Carbonate/Vitamin D3 1 Each Tablet, 1 TAB PO DAILY, (Reported) Fenofibrate 48 Mg Tab, 48 MG PO DAILY, (Reported) Folic Acid 0.4 Mg Tablet, 0.4 MG PO DAILY, (Reported) Furosemide 40 Mg Tablet, 40 MG PO DAILY, (Reported) Hydrocodone Bit/Acetaminophen 1 Each Tablet, 1-2 EACH PO Q4H Prescribed by: RUBÉN FUENTES on 12/02/16 1439 Lansoprazole 30 Mg Capsule.dr, 30 MG PO DAILY, (Reported) Losartan/Hydrochlorothiazide 1 Each Tablet, 1 TAB PO DAILY, (Reported) Metaxalone 800 Mg Tablet, 800 MG PO QID, (Reported) [place]-3 Fatty Acids/Fish Oil 1 Each Capsule, 1,000 MG PO BID, (Reported) Tiotropium [place] 1 Inh Aerp, 1 CAP IH DAILY, (Reported) Patient Home Medication List Home Medication List Reviewed: Yes Review of Systems Constitutional: see HPI EENTM: see HPI Respiratory: see HPI Cardiovascular: no symptoms reported Gastrointestinal: no symptoms reported Genitourinary: no symptoms reported : No Musculoskeletal: see HPI Skin: no symptoms reported Psychiatric/Neurological: See HPI Hematologic/Lymphatic: No Symptoms Reported Immunological/Allergic: no symptoms reported Past Iihdsqv-Jcnjbg-Zwykqt Hx Patient Social History Type Used: Cigarettes Former Smoker, Quit: Apr 15, 2013 Recent Foreign Travel: No Contact w/Someone Who Travel: No Recent Infectious Disease Expo: No Recent Hopitalizations: No Immunizations Up To Date Date of Pneumonia Vaccine: Jan 16, 2014 Date of Influenza Vaccine: Jan 27, 2016 Seasonal Allergies Seasonal Allergies: No Past Medical History Surgeries: Yes (r carotid) Appendectomy, Section, Gallbladder, Hysterectomy, Vascular Surgery ( carotid endarterectomy) Respiratory: Yes (uses inhaler due to smoking hx, suspect COPD) Cardiac: Yes Chronic Edema/Swelling, High Cholesterol, Hypertension, Peripheral Vascular ( carotid stenosis) Neurological: No : No Reproductive Disorders: No SANDBLASTER GLASS History: Hysterectomy Sexually Transmitted Disease: No HIV/AIDS: No Genitourinary: No Gastrointestinal: Yes Gastroesophageal Reflux Musculoskeletal: Yes Arthritis Endocrine: No HEENT: No Loss of Vision: Bilateral Hearing Impairment: Denies Cancer: No Psychosocial: Yes Anxiety Integumentary: Yes Eczema Blood Disorders: No Adverse Reaction/Blood Tranf: No (N/A) Physical Exam-Suspected Sepsis Physical Exam Vital Signs Vital Signs - First Documented Capillary Refill : Less Than 3 Seconds Blood Pressure Mean: 95 Height, Weight, BMI Height: 5'7.00" Weight: 200lbs. 0.0oz. 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 Disoriented to place, date, time, etc.) Skin: normal color, warm/dry Focused Exam Lactate Level 11/12/17 19:05: Lactic Acid Level 1.26 Lactic Acid Level Progress/Results/Core Measures Suspected Sepsis Recent Fever Within 48 Hours: Yes Infection Criteria Present: None New/Unexplained Altered Menta: Yes Sepsis Screen: No Definite Risk SIRS Temperature:101.6 Pulse: 92 Respiratory Rate: 12 Laboratory Tests 11/12/17 19:05: White Blood Count 17.2H Blood Pressure 147 /69 Mean: 95 11/12/17 19:05: Lactic Acid Level 1.26 Laboratory Tests 11/12/17 19:05: Creatinine 0.70, INR Comment 1.1, Platelet Count 323, Total Bilirubin 0.7 Results/Orders Lab Results Laboratory Tests Test 11/12/17 19:05 11/12/17 20:03 Range/Units White Blood Count 17.2 H 4.3-11.0 10^3/uL Red Blood Count 4.66 4.35-5.85 10^6/uL Hemoglobin 13.4 11.5-16.0 G/DL Hematocrit 40 35-52 % Mean Corpuscular Volume 85 80-99 FL Mean Corpuscular Hemoglobin 29 25-34 PG Mean Corpuscular Hemoglobin Concent 34 32-36 G/DL Red Cell Distribution Width 13.9 10.0-14.5 % Platelet Count 323 130-400 10^3/uL Mean Platelet Volume 9.1 7.4-10.4 FL Neutrophils (%) (Auto) 80 H 42-75 % Lymphocytes (%) (Auto) 12 12-44 % Monocytes (%) (Auto) 8 0-12 % Eosinophils (%) (Auto) 1 0-10 % Basophils (%) (Auto) 0 0-10 % Neutrophils # (Auto) 13.7 H 1.8-7.8 X 10^3 Lymphocytes # (Auto) 2.0 1.0-4.0 X 10^3 Monocytes # (Auto) 1.3 H 0.0-1.0 X 10^3 Eosinophils # (Auto) 0.1 0.0-0.3 10^3/uL Basophils # (Auto) 0.0 0.0-0.1 10^3/uL Neutrophils % (Manual) 88 % Lymphocytes % (Manual) 8 % Monocytes % (Manual) 3 % Eosinophils % (Manual) 1 % Basophils % (Manual) 0 % Band Neutrophils 0 % Blood Morphology Comment NORMAL Prothrombin Time 14.4 12.2-14.7 SEC INR Comment 1.1 0.8-1.4 Activated Partial Thromboplast Time 41 H 24-35 SEC Sodium Level 136 135-145 MMOL/L Potassium Level 3.3 L 3.6-5.0 MMOL/L Chloride Level 98 98-107 MMOL/L Carbon Dioxide Level 26 21-32 MMOL/L Anion Gap 12 5-14 MMOL/L Blood Urea Nitrogen 13 7-18 MG/DL Creatinine 0.70 0.60-1.30 MG/DL Estimat Glomerular Filtration Rate > 60 BUN/Creatinine Ratio 19 Glucose Level 128 H 70-105 MG/DL Lactic Acid Level 1.26 0.50-2.00 MMOL/L Calcium Level 9.8 8.5-10.1 MG/DL Corrected Calcium 9.5 8.5-10.1 MG/DL Total Bilirubin 0.7 0.1-1.0 MG/DL Aspartate Amino Transf (AST/SGOT) 18 5-34 U/L Alanine Aminotransferase (ALT/SGPT) 15 0-55 U/L Alkaline Phosphatase 106 40-136 U/L Total Protein 7.6 6.4-8.2 GM/DL Albumin 4.4 3.2-4.5 GM/DL Urine Color YELLOW Urine Clarity CLEAR Urine pH 8 5-9 Urine Specific [place] 1.010 L 1.016-1.022 Urine Protein 1+ H NEGATIVE Urine Glucose (UA) NEGATIVE NEGATIVE Urine Ketones NEGATIVE NEGATIVE Urine Nitrite NEGATIVE NEGATIVE Urine Bilirubin NEGATIVE NEGATIVE Urine Urobilinogen NORMAL NORMAL MG/DL Urine Leukocyte Esterase 1+ H NEGATIVE Urine RBC (Auto) NEGATIVE NEGATIVE Urine RBC NONE /HPF Urine WBC 0-2 /HPF Urine Crystals NONE /LPF Urine Bacteria LARGE H /HPF Urine Casts NONE /LPF Urine Mucus NEGATIVE /LPF Urine Culture Indicated NO My Orders Orders - ARNALDO CADET MD Cbc With Automated Diff (11/12/17 18:26) Comprehensive Metabolic Panel (11/12/17:) Ua Culture If Indicated (11/12/17:) Saline Lock/Iv-Start (11/12/17 18:26) Blood Culture (11/12/17 18:58) Sputum Culture (11/12/17 18:58) Urine Culture (11/12/17 18:58) Protime With Inr (11/12/17 18:58) Partial Thromboplastin Time (11/12/17 18:58) Chest 1 View, Ap/Pa Only (11/12/17 18:58) Saline Lock/Iv-Start (11/12/17 18:58) O2 (11/12/17 18:58) Remove Rings In Anticipation O (11/12/17 18:58) Lactic Acid Analyzer (11/12/17 18:58) Ct Head/Cervical Spine Wo (11/12/17 18:58) Diphenhydramine Injection (Benadryl Inje (11/12/17 19:30) Manual Differential (11/12/17 19:05) Ns Iv 1000 Ml (Sodium Chloride 0.9%) (11/12/17 19:25) Acetaminophen Tablet (Tylenol Tablet) (11/12/17 19:45) Chest Pa/Lat (2 View) (11/12/17 20:06) Ceftriaxone Injection (Rocephin Injectio (11/12/17 20:30) Medications Given in ED Current Medications Medications Dose Ordered Sig/Froilan Route Start Time Stop Time Status Last Admin Dose Admin Acetaminophen 1,000 mg ONCE ONCE PO 11/12/17 19:45 11/12/17 19:46 DC 11/12/17 19:49 1,000 MG Ceftriaxone Sodium 1000 mg/ Sodium Chloride 50 ml @ 100 mls/hr ONCE ONCE IV 11/12/17 20:30 11/12/17 20:59 DC 11/12/17 20:38 100 MLS/HR Diphenhydramine HCl 12.5 mg ONCE ONCE IVP 11/12/17 19:30 11/12/17 19:31 DC 11/12/17 19:49 12.5 MG Sodium Chloride 1,000 ml @ 0 mls/hr Q0M ONCE IV 11/12/17 19:25 11/12/17 19:26 DC 11/12/17 19:49 1,000 MLS/HR Vital Signs/I&O 11/12/17 11/12/17 11/12/17 11/12/17 18:36 18:36 21:22 21:35 Temp 101.6 101.6 101.7 98.8 Pulse 92 92 88 52 Resp 12 12 20 20 B/P (MAP) 147/69 (95) 147/69 (95) 148/73 157/74 (101) Pulse Ox 98 98 97 94 O2 Delivery Room Air Room Air Room Air Room Air 11/12/17 11/12/17 11/12/17 21:35 22:10 22:25 Pulse 82 80 B/P (MAP) 133/74 (93) Pulse Ox 96 96 O2 Delivery Room Air Room Air Capillary Refill : Less Than 3 Seconds Blood Pressure Mean: 95 Progress Note #1: Time: 19:37 Progress Note Patient was seen and examined when roomed. He complained of neck discomfort related to her fall a c-collar was placed. She was sent to CT for evaluation of head and cervical spine. IV fluids have been ordered. Septic workup is being pursued. Progress Note #2: Time: 20:[address] head and cervical spine were unremarkable for traumatic injury. Patient was cleared from a trauma perspective and c-collar was removed. Patient is being admitted for sepsis. Right middle or lower lobe pneumonia is likely the source of sepsis. Radiologist commented that the findings on chest x-ray may be related to trauma. However, patient has not had any chest pain associated with her fall. A repeat chest x-ray has been ordered for the morning on the bridging orders. Patient also likely has a urinary tract infection as there was a notable amount of bacteria on the urinalysis. This was a straight catheter specimen and is likely not contaminated. Urine culture was added to the labs. Patient will be admitted with the pneumonia protocol. Rocephin and azithromycin are being used for initial antibiotic therapy. Patient has not been officially diagnosed with COPD but testing for COPD could be performed when she recovers from pneumonia as she does have a smoking history and has used inhalers. Diagnostic Imaging Diagonstic Imaging: Xray Plain Films/CT/US/NM/MRI: chest Comments Chest x-ray viewed by me and report reviewed. See report below: NAME: MERY BRANCH [facility] REC#: [id number] PT STATUS: REG ER : 1945 PHYSICIAN: ARNALDO CADET MD ADMIT DATE: 11/12/17/ER Draft Date of Exam:11/12/17 CHEST 1 VIEW, AP/PA ONLY INDICATION: Fall. EXAMINATION: Portable upright AP view of the chest was obtained. COMPARISON: Study of 04/29/2016. FINDINGS: Overall heart size and pulmonary vascularity are within normal limits. There is increased density seen in the lateral aspect of the lower right hemithorax which could be due to focal infiltrate. Left lung appears clear. Surgical findings are seen in the lower neck. IMPRESSION: Abnormal density in the right base may represent area of focal infiltrate. Followup PA and lateral views of the chest would be of use. Dictated on workstation # [id number] Dict: 11/12/171924 Trans: 11/12/171928 [facility] [id number] Interpreted by: RENETTA BIRD MD Diagonstic Imaging: CT Plain Films/CT/US/NM/MRI: c-spine, head Comments CT head and cervical spine viewed by me and report reviewed. See report below: NAME: MERY BRANCH [facility] REC#: [id number] PT STATUS: REG ER : 1945 PHYSICIAN: ARNALDO CADET MD ADMIT DATE: 11/12/17/ER Draft Date of Exam:11/12/17 CT HEAD/CERVICAL SPINE WO PROCEDURE: CT head and CT cervical spine without contrast. TECHNIQUE: Multiple contiguous axial images were obtained through the brain and cervical spine without the use of intravenous contrast. Sagittal and coronal reformations through the cervical spine were then performed. INDICATION: Fall with difficulty speaking and slurring of words and headache. CT HEAD: The ventricles and sulci are diffusely prominent. There is rather extensive low density throughout the deep white matter of both cerebral hemispheres. Is no hemorrhage identified. Is atherosclerotic calcification within distal internal carotid and distal right vertebral artery. Is no abnormal mass effect or shift of midline structures. Calvarium is intact. There is opacification of the right sphenoid sinus. IMPRESSION: 1. Senescent findings in the brain with rather extensive white matter low density likely due to chronic microvascular ischemia. No definite acute intracranial abnormalities identified. 2. There is probable chronic sinusitis involving the right sphenoid. CT CERVICAL SPINE: Vertebral body motion. There has been discectomy and anterior cervical spinal fusion extending from C4-C6 with moderate narrowing and endplate spurring at the C3-4 disc space. There is also moderate narrowing of the C6-7 disc space which is eccentric toward the left. No acute fracture or malalignment is appreciated. IMPRESSION: Degenerative findings and surgical changes in the cervical spine without CT evidence of acute cervical spinal abnormality. Dictated on workstation # [id number] Dict: 11/12/171937 Trans: 11/12/171953 [facility] [id number] Interpreted by: RENETTA BIRD MD Diagonstic Imaging: Xray Plain Films/CT/US/NM/MRI: chest Comments Two-view chest x-ray viewed by me and report reviewed. See report below: NAME: MERY BRANCH [facility] REC#: [id number] PT STATUS: REG ER : 1945 PHYSICIAN: ARNALDO CADET MD ADMIT DATE: 11/12/17/ER Draft Date of Exam:11/12/17 CHEST PA/LAT (2 VIEW) INDICATION: Abnormal chest x-ray. EXAMINATION: Two views of the chest were obtained. FINDINGS: Since previous study, there is persistence of abnormal focal density which is located in the right middle lobe, laterally. Lungs are otherwise clear. There is no pneumothorax or significant pleural fluid. IMPRESSION: Focal infiltrate in the right middle lobe. This could represent pneumonia or possible hemorrhage from recent injury and clinical correlation is recommended. Followup study would be useful to document resolution. Dictated on workstation # [id number] Dict: 11/12/172030 Trans: 11/12/172035 [facility] [id number] Interpreted by: RENETTA BIRD MD Departure Communication (Admissions) Time/Spoke to Admitting Phy: 20:30 Dr. Ca Impression Primary Impression: Sepsis Qualified Codes: A41.9 - Sepsis, unspecified organism Additional Impressions: Right lower lobe pneumonia Qualified Codes: J18.1 - Lobar pneumonia, unspecified organism Confusion Fall on same level Qualified Codes: W18.30XA - Fall on same level, unspecified, initial encounter Neck pain Urinary tract infection Qualified Codes: N39.0 - Urinary tract infection, site not specified Disposition: ADMITTED INPATIENT Condition: Improved Admissions Decision to Admit Reason: Admit from ER (General) Decision to Admit/Date: Nov 12, 2017 Time/Decision to Admit Time: 18:30 Departure-Patient Inst. Referrals: MICHAELA KESSLER MD (PCP/Family) Primary Care Physician ARNALDO CADET MD Nov 12, 2017 19:33
[2017-11-12 19:42] LABS: ALANINE AMINOTRANSFERASE 15 U/L (0-55); ALBUMIN 4.4 GM/DL (3.2-4.5); ALKALINE PHOSPHATASE 106 U/L (40-136); BILIRUBIN,TOTAL 0.7 MG/DL (0.1-1.0); BUN/CREATININE RATIO 19; CALCIUM 9.8 MG/DL (8.5-10.1); CARBON DIOXIDE 26 MMOL/L (21-32); CHLORIDE 98 MMOL/L (98-107); GFR ESTIMATED > 60; GLUCOSE 128 MG/DL (70-105); POTASSIUM 3.3 MMOL/L (3.6-5.0); SODIUM 136 MMOL/L (135-145); TOTAL PROTEIN 7.6 GM/DL (6.4-8.2)
[2017-11-12] MEDS ORDERED: ACETAMINOPHEN 500 MG TAB (TYLENOL) PO ONE (19:45)
[2017-11-12 19:48] LABS: BAND NEUTROPHILS 0 %; BASOPHILS % (MANUAL) 0 %; EOSINOPHILS % (MANUAL) 1 %; LYMPHOCYTES % (MANUAL) 8 %; MONOCYTES % (MANUAL) 3 %; NEUTROPHILS % (MANUAL) 88 %; RBC MORPH NORMAL
--- NOTE | 2017-11-12 19:54 | Diagnostic Imaging Report ---
PROCEDURE: CT head and CT cervical spine without contrast. TECHNIQUE: Multiple contiguous axial images were obtained through the brain and cervical spine without the use of intravenous contrast. Sagittal and coronal reformations through the cervical spine were then performed. INDICATION: Fall with difficulty speaking and slurring of words and headache. CT HEAD: The ventricles and sulci are diffusely prominent. There is rather extensive low density throughout the deep white matter of both cerebral hemispheres. Is no hemorrhage identified. Is atherosclerotic calcification within distal internal carotid and distal right vertebral artery. Is no abnormal mass effect or shift of midline structures. Calvarium is intact. There is opacification of the right sphenoid sinus. IMPRESSION: 1. Senescent findings in the brain with rather extensive white matter low density likely due to chronic microvascular ischemia. No definite acute intracranial abnormalities identified. 2. There is probable chronic sinusitis involving the right sphenoid. CT CERVICAL SPINE: Vertebral body motion. There has been discectomy and anterior cervical spinal fusion extending from C4-C6 with moderate narrowing and endplate spurring at the C3-4 disc space. There is also moderate narrowing of the C6-7 disc space which is eccentric toward the left. No acute fracture or malalignment is appreciated. IMPRESSION: Degenerative findings and surgical changes in the cervical spine without CT evidence of acute cervical spinal abnormality. Dictated by: Dictated on workstation # [id number]
[2017-11-12 20:11] LABS: BILIRUBIN,URINE NEGATIVE (NEGATIVE); CLARITY,URINE CLEAR; COLOR,URINE YELLOW; GLUCOSE, URINE (UA) NEGATIVE (NEGATIVE); KETONES,URINE NEGATIVE (NEGATIVE); LEUKOCYTE ESTERASE ,URINE 1+ (NEGATIVE); NITRITE,URINE NEGATIVE (NEGATIVE); PH,URINE 8 (5-9); PROTEIN,URINE 1+ (NEGATIVE); UROBILINOGEN,URINE NORMAL (NORMAL)
[2017-11-12] MEDS ORDERED: cefTRIAXone INJECTION 1,000 MG in NS (IVPB) 50 ML IV ONE (20:30)
[2017-11-12 20:32] LABS: BACTERIA,URINE LARGE /HPF; WBC,URINE 0-2 /HPF
--- NOTE | 2017-11-12 20:37 | Diagnostic Imaging Report ---
INDICATION: Abnormal chest x-ray. EXAMINATION: Two views of the chest were obtained. FINDINGS: Since previous study, there is persistence of abnormal focal density which is located in the right middle lobe, laterally. Lungs are otherwise clear. There is no pneumothorax or significant pleural fluid. IMPRESSION: Focal infiltrate in the right middle lobe. This could represent pneumonia or possible hemorrhage from recent injury and clinical correlation is recommended. Followup study would be useful to document resolution. Dictated by: Dictated on workstation # [id number]
[2017-11-12 21:35] VITALS: BP 157/74
[2017-11-12 22:10] VITALS: BP 133/74
[2017-11-12] MEDS ORDERED: ONDANSETRON 4 MG/2 ML (SDV) Z0FRAN IV PRN (22:15)
[2017-11-12] MEDS ORDERED: AZITHROMYCIN 500 MG (ZITHROMAX) VIAL ONE (22:15)
[2017-11-12] MEDS ORDERED: NS (IVPB) 250 ML ONE (22:15)
[2017-11-12] MEDS ORDERED: NS W/KCL 20 MEQ/L 1,000 ML IV SCH (22:15)
[2017-11-12] MEDS ORDERED: AZITHROMYCIN INJECTION 500 MG in NS (IVPB) 250 ML IV SCH (22:42)
[2017-11-12] MEDS ORDERED: RT-ALBUTEROL/IPRATROPIUM 3 ML (DUONEB) VIAL INH PRN (23:00)
[2017-11-12 23:10] VITALS: BP 135/76
[2017-11-13 00:10] VITALS: BP 129/72
[2017-11-13] MEDS ORDERED: MINE120C3 TP (00:49)
[2017-11-13] MEDS ORDERED: HYDR28OI2 TP (00:49)
[2017-11-13] MEDS ORDERED: BIOT5000 PO (00:49)
[2017-11-13] MEDS ORDERED: LEVO1CAP11 PO (00:49)
[2017-11-13] MEDS ORDERED: MULT-1021 PO (00:49)
[2017-11-13] MEDS ORDERED: CLOB15CR3 TP (00:49)
[2017-11-13] MEDS ORDERED: ASPI-586 PO (00:49)
[2017-11-13 04:00] VITALS: BP 145/74
[2017-11-13] MEDS: ACETAMINOPHEN 500 MG TAB (TYLENOL) PO PRN ×2 (05:16→11:33)
[2017-11-13 07:51] LABS: BASOPHILS % (AUTO) 0 % (0-10); EOSINOPHILS # (AUTO) 0.1 10^3/uL (0.0-0.3); EOSINOPHILS % (AUTO) 1 % (0-10); HEMATOCRIT 35 % (35-52); HEMOGLOBIN 11.9 G/DL (11.5-16.0); LYMPHOCYTES # (AUTO) 1.6 X 10^3 (1.0-4.0); LYMPHOCYTES % (AUTO) 10 % (12-44); MEAN CORPUSCULAR HEMOGLOBIN 29 PG (25-34); MEAN CORPUSCULAR HGB CONC 34 G/DL (32-36); MEAN CORPUSCULAR VOLUME 86 FL (80-99); MEAN PLATELET VOLUME 8.9 FL (7.4-10.4); MONOCYTES # (AUTO) 0.9 X 10^3 (0.0-1.0); MONOCYTES % (AUTO) 6 % (0-12); NEUTROPHILS # (AUTO) 12.5 X 10^3 (1.8-7.8); NEUTROPHILS % (AUTO) 83 % (42-75); PLATELET COUNT 288 10^3/uL (130-400); RED BLOOD COUNT 4.07 10^6/uL (4.35-5.85); RED CELL DISTRIBUTION WIDTH 14.3 % (10.0-14.5); WHITE BLOOD COUNT 15.2 10^3/uL (4.3-11.0)
--- NOTE | 2017-11-13 07:51 | History & Physical-Hospitalist ---
History of Present Illness HPI/Chief Complaint Pt is a 71yoCF with a PMH of HTN who presents to the ER with CC fo confusion and lethargy. She states her symptoms started 11/11 after a fall. She is not clear on the details surrounding the fall though. He attempted to take her to the ER then but she declined. She continued to worsen on 11/12 and developed a fever. She was confused and "acting weird" per family prompting ER evaluation. In the ER she was found to be oriented only to self. Labs revealed a leukocytosis and CXR showed a right sided pneumonia. She originally denied any cough to the ER but today she states she has been coughing and having sputum. She denies any hemoptysis. She reports feeling much better and is even requesting discharge home. Source: patient, family Exam Limitations: no limitations Date Seen 11/13/17 Time Seen by Provider: 07:46 Attending Physician Juju Ca MD PCP Crow Maldonado MD Referring Physician Date of Admission Nov 12, 2017 at 20:48 Home Medications & Allergies Home Medications Reviewed patient Home Medication Reconciliation performed by pharmacy medication reconciliations mail technician and/or nursing. Patients Allergies have been reviewed. Allergies Allergies Coded Allergies No Known Drug Allergies (Unverified11/30/16) Past Gbjbynz-Hgrkvl-Kxsyjt Hx Past Med/Social Hx: Reviewed Nursing Past Med/Soc Hx Patient Social History Marrital Status: Alcohol Use: Denies Use Recreational Drug Use: No Smoking Status: Former Smoker Former Smoker, Quit: Apr 15, 2013 Type Used: Cigarettes Physical Abuse Screen: No Sexual Abuse: No Recent Foreign Travel: No Contact w/other who traveled: No Recent Hopitalizations: No Recent Infectious Disease Expo: No Immunizations Up To Date Date of Pneumonia Vaccine: Jan 16, 2014 Date of Influenza Vaccine: Jan 27, 2016 Seasonal Allergies Seasonal Allergies: No Past Medical History Surgeries: Appendectomy, Section, Gallbladder, Hysterectomy, Vascular Surgery (carotid endarterectomy) neck surgery Currently Using CPAP: No Currently Using BIPAP: No Cardiac: Chronic Edema/Swelling, High Cholesterol, Hypertension, Peripheral Vascular (carotid stenosis) : No Reproductive: No Sexually Transmitted Disease: No HIV/AIDS: No Hysterectomy Gastrointestinal: Gastroesophageal Reflux Musculoskeletal: Arthritis HEENT: Cataract Loss of Vision: Bilateral Hearing Impairment: Denies Psychosocial: Anxiety Skin/Integumentary: Eczema History of Blood Disorders: No Adverse Reaction to Blood No: No (N/A) Family History Reviewed Nursing Family Hx Completed stroke 19 FATHER FH: COPD (chronic obstructive pulmonary disease) G8 SISTER, Onset:Unknown FH: skin cancer 19 FATHER, Onset:Unknown Myocardial infarction G8 SISTER, Onset:Unknown Review of Systems Constitutional: fever, weakness EENTM: no symptoms reported Respiratory: cough; No hemoptysis; phlegm, wheezing Cardiovascular: No chest pain; edema; No palpitations Gastrointestinal: No abdominal pain, No nausea, No vomiting Genitourinary: no symptoms reported Musculoskeletal: no symptoms reported Skin: no symptoms reported Psychiatric/Neurological: Denies Headache, Denies Numbness; Other (confusion) Physical Exam Physical Exam Vital Signs Vital Signs - First Documented Capillary Refill : Less Than 3 Seconds Height, Weight, BMI Height: 5'8.00" Weight: 218lbs. 0.0oz. 98.754145ga; 33.2 BMI Method:Estimated General Appearance: No Apparent Distress, WD/WN HEENT: PERRL/EOMI, Moist Mucous Membranes Neck: Non Tender, Supple Respiratory: No Accessory Muscle Use, No Respiratory Distress, Wheezing (right sided) Cardiovascular: Regular Rate, Rhythm, No Murmur Gastrointestinal: Normal Bowel Sounds, Non Tender, Soft Extremity: Normal Capillary Refill, No Calf Tenderness, Pedal Edema (trace) Neurologic/Psychiatric: Alert, Oriented x3, Normal Mood/Affect Skin: Normal Color, Warm/Dry Results Results/Procedures Labs Laboratory Tests 11/12/17 19:05 Patient resulted labs reviewed. Imaging: Reviewed Imaging Films, Reviewed Imaging Report Assessment/Plan Admission Diagnosis Sepsis Admission Status: Inpatient Order (span 2 midnights) Reason for Inpatient Admission: IV antibiotics Diagnosis/Problems Diagnosis/Problems (1) Sepsis Status: Acute Assessment & Plan: Leukocytosis with fever and RML pna on CXR Continue Rocephin and Azithro Obtain sputum culture if able Pulm consulted due to CXR read as possible pulm hemorrhage Discussed with Dr Cisneros and review imaging- likely pneumonia and no hemorrhage Qualifiers: Sepsis type: sepsis due to unspecified organism Qualified Codes: A41.9 - Sepsis, unspecified organism (2) Right lower lobe pneumonia Status: Acute Assessment & Plan: Antibiotics as above Qualifiers: Pneumonia type: due to unspecified organism Qualified Codes: J18.1 - Lobar pneumonia, unspecified organism (3) Essential (primary) hypertension Status: Chronic Assessment & Plan: Resume BP meds as able Hold HCTZ due to hypokalemia Clinical Quality Measures DVT/VTE Risk/Contraindication: Risk Factor Score Per Nursin RFS Level Per Nursing on Admit: 4+=Very High JUJU CA MD Nov 13, 2017 07:51
[2017-11-13 08:00] VITALS: BP 141/66
[2017-11-13] MEDS ORDERED: ALPRAZolam 0.25 MG (XANAX) TAB PO PRN (08:00)
[2017-11-13 08:16] LABS: BUN/CREATININE RATIO 13; CALCIUM 8.7 MG/DL (8.5-10.1); CARBON DIOXIDE 20 MMOL/L (21-32); CHLORIDE 105 MMOL/L (98-107); CREATININE SERUM 0.68 MG/DL (0.60-1.30); GFR ESTIMATED > 60; GLUCOSE 244 MG/DL (70-105); POTASSIUM 3.4 MMOL/L (3.6-5.0); SODIUM 137 MMOL/L (135-145)
--- NOTE | 2017-11-13 09:12 | Diagnostic Imaging Report ---
INDICATION: Pneumonia COMPARISON: 11/12/17 FINDINGS: Frontal and lateral views of the chest demonstrates stable infiltrate in the right lung base. Left lung is clear. The heart is normal. There is no pneumothorax. There is trace to slightly increased effusion in the right base. IMPRESSION: 1. Stable infiltrate right lung base. 2. Slightly increased right-sided effusion. Dictated by: Dictated on workstation # [id number]
[2017-11-13] MEDS: AZITHROMYCIN 250 MG TAB (ZITHROMAX) PO SCH (09:16)
[2017-11-13] MEDS: amLODIPine 5 MG (NORVASC) TAB PO SCH (09:17)
[2017-11-13] MEDS: ATENOLOL 50 MG (TENORMIN) TAB PO SCH (09:17)
--- NOTE | 2017-11-13 09:36 | Pulmonary Consultation ---
History of Present Illness History of Present Illness Date of Consultation 11/13/17 09:31 Time Seen by Provider: 09:31 Date of Admission History of Present Illness 71yo presented to ED secondary to worsening confusion and lethargy. Unable to obtain ROS. Onset started 11/11 after a fall. Her attempted to take her to ED prior to this however she declined. PT was also spiking a fever. PT has also been coughing up thick yellow sputum. I am consulted for pulmonary management. Allergies and Home Medications Allergies Coded Allergies: No Known Drug Allergies (Unverified , 11/30/16) Home Medications Acetaminophen 500 Mg Tablet, 1,000 MG PO Q8H PRN for PAIN, (Reported) TAKES 2 (500MG) TABLETS NEEDED FOR PAIN Alprazolam 0.5 Mg Tablet, 0.5 MG PO BID PRN for ANXIETY, (Reported) NEEDED FOR ANXIETY Amlodipine/Atorvast Brian 1 Each Tablet, 1 TAB PO HS, (Reported) 10-20MG TABLET Aspirin 81 Mg Tablet.dr, 81 MG PO DAILY, (Reported) Atenolol 50 Mg Tab, 50 MG PO DAILY, (Reported) Azithromycin 250 Mg Tablet, 250 MG PO DAILY Prescribed by: JUJU ISRAEL on 11/14/17 1054 Biotin 5,000 Mcg Tab.rapdis, 5,000 MCG PO DAILY, (Reported) Calcium Carbonate/Vitamin D3 1 Each Tablet, 1 TAB PO DAILY, (Reported) Cephalexin 500 Mg Capsule, 500 MG PO BID Prescribed by: JUJU ISRAEL on 11/14/17 1054 Clobetasol Propionate/Emoll 15 Gm Cream..g., 1 GM TP DAILY PRN for RASH, ( Reported) Fenofibrate 48 Mg Tab, 48 MG PO DAILY, (Reported) Folic Acid 0.4 Mg Tablet, 0.4 MG PO DAILY, (Reported) Furosemide 40 Mg Tablet, 40 MG PO DAILY, (Reported) Hydrocortisone Acetate 28 Gm Oint...g., 1 GM TP DAILY PRN for RASH, (Reported) Levomefolate/B6/B12/Algal Oil 1 Each Capsule, 1 EACH PO BID, (Reported) Losartan/Hydrochlorothiazide 1 Each Tablet, 1 TAB PO DAILY, (Reported) Metaxalone 800 Mg Tablet, 800 MG PO QID, (Reported) Mineral Oil/Petrolatum,White 120 Gm Cream..g., 1 GM TP DAILY PRN for RASH, ( Reported) Multivits-Min/Iron/FA/Lutein 1 Each Tablet, 1 EACH PO DAILY, (Reported) [place]-3 Fatty Acids/Fish Oil 1 Each Capsule, 1,000 MG PO DAILY, (Reported) Tiotropium [place] 1 Inh Aerp, 1 CAP IH DAILY, (Reported) Past Wefdqmo-Nzffdo-Jcqigx Hx Past Med/Social Hx: Reviewed Nursing Past Med/Soc Hx Patient Social History Alcohol Use: Denies Use Recreational Drug Use: No Smoking Status: Former Smoker Type Used: Cigarettes Former Smoker, Quit: Apr 15, 2013 Recent Foreign Travel: No Contact w/Someone Who Travel: No Recent Infectious Disease Expo: No Recent Hopitalizations: No Physical Abuse: No Sexual Abuse: No Immunizations Up To Date Date of Pneumonia Vaccine: Jan 16, 2014 Date of Influenza Vaccine: Jan 27, 2016 Seasonal Allergies Seasonal Allergies: No Past Medical History Surgeries: Yes (r carotid, NECK SURGERY) Appendectomy, Section, Gallbladder, Hysterectomy, Vascular Surgery ( carotid endarterectomy) Respiratory: Yes (uses inhaler due to smoking hx, suspect COPD) Currently Using CPAP: No Currently Using BIPAP: No Cardiac: Yes (heart angioplasty/rt endarectomh) Chronic Edema/Swelling, High Cholesterol, Hypertension, Peripheral Vascular ( carotid stenosis) Neurological: No : No Reproductive Disorders: No 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 Sexually Transmitted Disease: No HIV/AIDS: No Genitourinary: No Gastrointestinal: Yes Gastroesophageal Reflux Musculoskeletal: Yes Arthritis Endocrine: No HEENT: Yes Cataract Loss of Vision: Bilateral Hearing Impairment: Denies Cancer: No Psychosocial: Yes Anxiety Nursing Suicide Risk Score: 0 Integumentary: Yes Eczema Blood Disorders: No Adverse Reaction/Blood Tranf: No (N/A) Family Medical History Reviewed Nursing Family Hx Completed stroke 19 FATHER FH: COPD (chronic obstructive pulmonary disease) G8 SISTER, Onset:Unknown FH: skin cancer 19 FATHER, Onset:Unknown Myocardial infarction G8 SISTER, Onset:Unknown Review of Systems Time Seen by Provider: 09:16 Sepsis Event Evaluation Height, Weight, BMI Height: 5'8.00" Weight: 218lbs. 0.0oz. 98.439951qy; 33.2 BMI Method:Estimated Exam Exam Vital Signs Date Time Temp Pulse Resp B/P (MAP) Pulse Ox O2 Delivery O2 Flow Rate FiO2 11/13/17 08:00 97 Room Air 11/13/17 08:00 98.4 88 18 141/66 (91) 94 Room Air 11/13/17 07:00 85 11/13/17 06:40 100.2 11/13/17 06:24 101.8 11/13/17 05:55 101.3 11/13/17 05:16 102.3 11/13/17 04:00 102.2 96 20 145/74 (97) 97 Room Air 11/13/17 01:20 86 11/13/17 00:10 100.3 85 18 129/72 (91) 96 Room Air 11/12/17 23:10 95 135/76 (95) 99 11/12/17 22:25 80 11/12/17 22:10 82 133/74 (93) 96 Room Air 11/12/17 21:35 96 Room Air 11/12/17 21:35 98.8 52 20 157/74 (101) 94 Room Air 11/12/17 21:22 101.7 88 20 148/73 97 Room Air 11/12/17 18:36 101.6 92 12 147/69 (95) 98 Room Air 11/12/17 18:36 101.6 92 12 147/69 (95) 98 Room Air I & O 11/13/17 07:00 Intake Total 1725 ml Output Total 0 ml Balance 1725 ml Height & Weight Height: 5'8.00" Weight: 218lbs. 0.0oz. 98.069244sp; 33.2 BMI Method:Estimated General Appearance: WD/WN, Mild Distress HEENT: PERRL/EOMI, Moist Mucous Membranes Neck: Non Tender, Supple Respiratory: No Accessory Muscle Use, No Respiratory Distress, Decreased Breath Sounds, Wheezing (right sided) Cardiovascular: Regular Rate, Rhythm, No Murmur Capillary Refill: Less Than 3 Seconds Extremity: Normal Capillary Refill, No Calf Tenderness, Pedal Edema (trace) Neurologic/Psychiatric: Alert, Oriented x3, Normal Mood/Affect Skin: Normal Color, Warm/Dry Results Lab Laboratory Tests 11/12/17 19:05 11/13/17 07:42 Assessment/Plan Assessment/Plan RLL pneumonia with sepsis -Currently on Rocephin and Azithromycin -CHeck urine strep, legionella ag, and influenza -IVF -Suazo culture Dyspnea secondary to pneumonia MP GARCIA DO Nov 13, 2017 09:36
[2017-11-13] MEDS ORDERED: ACET-2469 PO (10:43)
[2017-11-13] MEDS: LACTOBACILLUS Acidoph/Bulgar (LACTINEX/FLORANEX) TAB PO SCH ×2 (11:09→15:52)
[2017-11-13 12:00] VITALS: BP 127/60
[2017-11-13 16:00] VITALS: BP 136/63
[2017-11-13] MEDS: RT-ALBUTEROL/IPRATROPIUM 3 ML (DUONEB) VIAL INH SCH ×2 (16:54→18:52)
[2017-11-13 19:47] VITALS: BP 154/70
[2017-11-13] MEDS ORDERED: cefTRIAXone INJECTION 1,000 MG in NS (IVPB) 50 ML IV SCH (20:00)
[2017-11-14] VITALS: BP 173/81
[2017-11-14] MEDS: ACETAMINOPHEN 500 MG TAB (TYLENOL) PO PRN ×2 (00:23→08:44)
[2017-11-14 04:00] VITALS: BP 136/65
[2017-11-14] MEDS: LACTOBACILLUS Acidoph/Bulgar (LACTINEX/FLORANEX) TAB PO SCH (05:49)
[2017-11-14 06:25] LABS: BASOPHILS % (AUTO) 0 % (0-10); EOSINOPHILS # (AUTO) 0.2 10^3/uL (0.0-0.3); EOSINOPHILS % (AUTO) 2 % (0-10); HEMATOCRIT 36 % (35-52); HEMOGLOBIN 12.2 G/DL (11.5-16.0); LYMPHOCYTES # (AUTO) 2.2 X 10^3 (1.0-4.0); LYMPHOCYTES % (AUTO) 21 % (12-44); MEAN CORPUSCULAR HEMOGLOBIN 29 PG (25-34); MEAN CORPUSCULAR HGB CONC 34 G/DL (32-36); MEAN CORPUSCULAR VOLUME 86 FL (80-99); MEAN PLATELET VOLUME 9.2 FL (7.4-10.4); MONOCYTES # (AUTO) 0.9 X 10^3 (0.0-1.0); MONOCYTES % (AUTO) 9 % (0-12); NEUTROPHILS # (AUTO) 7.1 X 10^3 (1.8-7.8); NEUTROPHILS % (AUTO) 68 % (42-75); PLATELET COUNT 309 10^3/uL (130-400); RED BLOOD COUNT 4.22 10^6/uL (4.35-5.85); RED CELL DISTRIBUTION WIDTH 13.9 % (10.0-14.5); WHITE BLOOD COUNT 10.4 10^3/uL (4.3-11.0)
[2017-11-14 06:41] LABS: BUN/CREATININE RATIO 13; CALCIUM 9.5 MG/DL (8.5-10.1); CARBON DIOXIDE 24 MMOL/L (21-32); CHLORIDE 105 MMOL/L (98-107); CREATININE SERUM 0.56 MG/DL (0.60-1.30); GFR ESTIMATED > 60; GLUCOSE 125 MG/DL (70-105); POTASSIUM 3.8 MMOL/L (3.6-5.0); SODIUM 139 MMOL/L (135-145)
[2017-11-14 08:00] VITALS: BP 145/75
[2017-11-14] MEDS: AZITHROMYCIN 250 MG TAB (ZITHROMAX) PO SCH (08:44)
[2017-11-14] MEDS: amLODIPine 5 MG (NORVASC) TAB PO SCH (08:44)
[2017-11-14] MEDS: ATENOLOL 50 MG (TENORMIN) TAB PO SCH (08:44)
--- NOTE | 2017-11-14 09:21 | Pulmonary Progress Note ---
Subjective Time Seen by Provider: 09:30 Subjective/Events-last exam sob nonproductive cough Sepsis Event Evaluation Height, Weight, BMI Height: 5'8.00" Weight: 218lbs. 0.0oz. 98.029515cx; 33.2 BMI Method:Estimated Focused Exam Lactate Level 11/12/17 19:05: Lactic Acid Level 1.26 Exam Exam Vital Signs Date Time Temp Pulse Resp B/P (MAP) Pulse Ox O2 Delivery O2 Flow Rate FiO2 11/14/17 04:00 99.3 89 18 136/65 (88) 91 Room Air 11/14/17 01:00 101.4 11/14/17 00:23 101.3 11/14/17 00:00 101.2 107 24 173/81 (111) 97 Room Air 11/13/17 20:05 99 Room Air 11/13/17 19:47 98.5 87 20 154/70 (98) 99 Room Air 11/13/17 18:53 100 Room Air 11/13/17 16:00 99.6 74 24 136/63 (87) 97 Room Air 11/13/17 12:00 98.4 78 20 127/60 (82) 98 Room Air I & O 11/14/17 07:00 Intake Total 2780 ml Output Total 1800 ml Balance 980 ml Height & Weight Height: 5'8.00" Weight: 218lbs. 0.0oz. 98.243610pf; 33.2 BMI Method:Estimated General Appearance: No Apparent Distress, WD/WN HEENT: PERRL/EOMI, Moist Mucous Membranes Neck: Non Tender, Supple Respiratory: No Accessory Muscle Use, No Respiratory Distress, Wheezing (right sided) Cardiovascular: Regular Rate, Rhythm, No Murmur Capillary Refill: Less Than 3 Seconds Extremity: Normal Capillary Refill, No Calf Tenderness, Pedal Edema (trace) Neurologic/Psychiatric: Alert, Oriented x3, Normal Mood/Affect Skin: Normal Color, Warm/Dry Results Lab Laboratory Tests 11/12/17 19:05 11/13/17 07:42 11/14/17 06:10 Assessment/Plan Assessment/Plan RLL pneumonia with sepsis -Currently on Rocephin and Azithromycin -Still febrile however improving leukocytosis -CHeck urine strep, legionella ag, and influenza -IVF -Suazo culture pending Dyspnea secondary to pneumonia MP GARCIA DO Nov 14, 2017 09:21
[2017-11-14] MEDS: RT-ALBUTEROL/IPRATROPIUM 3 ML (DUONEB) VIAL INH SCH (09:44)
[2017-11-14] MEDS ORDERED: AZIT250T12 PO (10:51)
[2017-11-14] MEDS ORDERED: CEPH-507 PO (10:51)
--- NOTE | 2017-11-14 10:59 | Discharge Inst-Simple/Standard ---
Discharge Inst-Standard Discharge Medications New, Converted or Re-Newed RX: Transmitted to Pharmacy Patient Instructions/Follow Up Plan of Care/Instructions/FU: Please take your medications as written even if you symptoms improve. Please follow up with your primary care doctor next week. Activity as Tolerated: Yes Discharge Diet: No Restrictions Return to The Hospital For: Shortness of breath, worsening fever, confusion, or if you feel you are getting worse. JUJU ISRAEL MD Nov 14, 2017 10:59
--- NOTE | 2017-11-14 11:04 | Discharge Summary-Hospitalist ---
Diagnosis/Chief Complaint Date of Admission Nov 12, 2017 at 20:48 Date of Discharge Discharge Date: Nov 14, 2017 Admission Diagnosis Sepsis Discharge Diagnosis (1) Sepsis Status: Acute Assessment & Plan: Leukocytosis resolved but intermittent fever RML pneumonia on CXR Continue Rocephin and Azithro Obtain sputum culture if able Pulm consulted due to CXR read as possible pulm hemorrhage Discussed with Dr Cisneros and review imaging- likely pneumonia and no hemorrhage (2) Right lower lobe pneumonia Status: Acute Assessment & Plan: Antibiotics as above (3) Essential (primary) hypertension Status: Chronic Assessment & Plan: Resume BP meds as able Hold HCTZ due to hypokalemia Discharge Summary Procedures/Consulations Dr Cisneros- Pulm Discharge Physical Exam Allergies: Coded Allergies: No Known Drug Allergies (Unverified , 11/30/16) Vitals & I&Os Vital Signs Date Time Temp Pulse Resp B/P (MAP) Pulse Ox O2 Delivery O2 Flow Rate FiO2 11/14/17 11:30 89 18 145/75 97 Room Air 11/14/17 08:00 98.4 General Appearance: Alert, Oriented X3 Respiratory: Clear to Auscultation Cardiovascular: Regular Rate Hospital Course Pt was admitted for sepsis from pneumonia with altered mentation. She responded well to antibiotics and quickly improved. Due to chest x-ray concern for possible pulmonary hemorrhage Pulmonology was consulted. She denied any hemoptysis or trauma so hemorrhage was deemed to be unlikely. She was discharged home on oral antibiotics to complete course and follow up with her PCP. Labs (last 24 hrs) Laboratory Tests 11/14/17 06:10: White Blood Count 10.4, Red Blood Count 4.22L, Hemoglobin 12.2, Hematocrit 36, Mean Corpuscular Volume 86, Mean Corpuscular Hemoglobin 29, Mean Corpuscular Hemoglobin Concent 34, Red Cell Distribution Width 13.9, Platelet Count 309, Mean Platelet Volume 9.2, Neutrophils (%) (Auto) 68, Lymphocytes (%) (Auto) 21, Monocytes (%) (Auto) 9, Eosinophils (%) (Auto) 2, Basophils (%) (Auto) 0, Neutrophils # (Auto) 7.1, Lymphocytes # (Auto) 2.2, Monocytes # (Auto) 0.9, Eosinophils # (Auto) 0.2, Basophils # (Auto) 0.0, Sodium Level 139, Potassium Level 3.8, Chloride Level 105, Carbon Dioxide Level 24, Anion Gap 10, Blood Urea Nitrogen 7, Creatinine 0.56L, Estimat Glomerular Filtration Rate > 60, BUN/ Creatinine Ratio 13, Glucose Level 125H, Calcium Level 9.5 Microbiology 11/12/17 Blood Culture - Preliminary, Resulted No growth 11/13/17 Influenza Types A,B Antigen (JAMI) - Final, Complete 11/12/17 Urine Culture - Final, Complete Lactobacillus species See Comments Sent To [facility] Patient resulted labs reviewed. Pending Labs Imaging: Reviewed Imaging Films, Reviewed Imaging Report Discussion & Recommendations Discharge Planning: >30 minutes discharge planning Discharge Home Medications: Active Scripts Active Keflex (Cephalexin) 500 Mg Capsule 500 Mg PO BID Azithromycin 250 Mg Tablet 250 Mg PO DAILY Reported Metanx Capsule (Levomefolate/B6/B12/Algal Oil) 1 Each Capsule 1 Each PO BID Hydrocortisone (Hydrocortisone Acetate) 28 Gm Oint...g. 1 Gm TP DAILY PRN Eucerin Creme (Mineral Oil/Petrolatum,White) 120 Gm Cream..g. 1 Gm TP DAILY PRN Clobetasol Emollient 0.05% Crm (Clobetasol Propionate/Emoll) 15 Gm Cream..g. 1 Gm TP DAILY PRN Centrum Silver Women Tablet (Multivits-Min/Iron/FA/Lutein) 1 Each Tablet 1 Each PO DAILY Biotin 5,000 Mcg Tab.rapdis 5,000 Mcg PO DAILY Aspir 81 (Aspirin) 81 Mg Tablet.dr 81 Mg PO DAILY Xanax (Alprazolam) 0.5 Mg Tablet 0.5 Mg PO BID PRN NEEDED FOR ANXIETY Folic Acid 0.4 Mg Tablet 0.4 Mg PO DAILY Skelaxin (Metaxalone) 800 Mg Tablet 800 Mg PO QID Fish Oil 1,000 Mg Softgel ([place]-3 Fatty Acids/Fish Oil) 1 Each Capsule 1,000 Mg PO DAILY Tylenol (Acetaminophen) 500 Mg Tablet 1,000 Mg PO Q8H PRN TAKES 2 (500MG) TABLETS NEEDED FOR PAIN Calcium 600 + D Caplet (Calcium Carbonate/Vitamin D3) 1 Each Tablet 1 Tab PO DAILY Spiriva (Tiotropium Zirconia) 1 Inh Aerp 1 Cap IH DAILY [place] 10 Mg-20 Mg Tablet (Amlodipine/Atorvast Brian) 1 Each Tablet 1 Tab PO HS 10-20MG TABLET Tricor (Fenofibrate) 48 Mg Tab 48 Mg PO DAILY Furosemide 40 Mg Tablet 40 Mg PO DAILY Losartan-Hctz 100-12.5 Mg Tab (Losartan/Hydrochlorothiazide) 1 Each Tablet 1 Tab PO DAILY Tenormin Tablet (Atenolol) 50 Mg Tab 50 Mg PO DAILY Instructions to patient/family Please see electronic discharge instructions given to patient. Clinical Quality Measures DVT/VTE Risk/Contraindication: Risk Factor Score Per Nursin RFS Level Per Nursing on Admit: 4+=Very High Problem Qualifiers (1) Sepsis: Sepsis type: sepsis due to unspecified organism Qualified Codes: A41.9 - Sepsis, unspecified organism (2) Right lower lobe pneumonia: Pneumonia type: due to unspecified organism Qualified Codes: J18.1 - Lobar pneumonia, unspecified organism JUJU ISRAEL MD Nov 14, 2017 11:04
[2017-11-14 11:30] VITALS: BP 145/75
== END 2017-11-14 11:30 | disposition home or self-care (01) | DRG 871 ==
LOC: EDUNIT# 18:19 → ER 18:20 → 4TH 20:48
PROVIDERS: ADMIT Family Medicine; ATTEND Family Medicine
DX: A41.9 Sepsis, unspecified organism (principal); J18.9 Pneumonia, unspecified organism; N39.0 Urinary tract infection, site not specified; M54.2 Cervicalgia; E87.6 Hypokalemia; I10 Essential (primary) hypertension; E78.00 Pure hypercholesterolemia, unspecified; K21.9 Gastro-esophageal reflux disease without esophagitis; W19.XXXA Unspecified fall, initial encounter; Y92.009 Unspecified place in unspecified non-institutional (private) residence as the place of occurrence of the external cause; Z87.891 Personal history of nicotine dependence; Z79.82 Long term (current) use of aspirin
CPT/HCPCS: 36415; 70450; 71045; 71046; 72125; 80048; 80053; 81000; 83605; 83880; 85007; 85025; 85027; 85610; 85730; 87040; 87077; 87088; 87804; 94640; 94760; 96361; 96365; 96375

== ENCOUNTER → 2018-03-23 | Outpatient (CLI) | payer MEDICARE, OTHER ==
[~2018-03-23] MED LIST changes: +ACET-2469 PO; +ASPI-586 PO; +AZIT250T12 PO; +BIOT5000 PO; +CEPH-507 PO; +CLOB15CR3 TP; +HYDR28OI2 TP; +LEVO1CAP11 PO; +MINE120C3 TP; +MULT-1021 PO
== END ==
LOC: CARD 08:34
PROVIDERS: ATTEND Internal Medicine Cardiovascular Disease
DX: R07.9 Chest pain, unspecified (principal); I10 Essential (primary) hypertension; E78.5 Hyperlipidemia, unspecified; R06.02 Shortness of breath; I08.1 Rheumatic disorders of both mitral and tricuspid valves; Z72.0 Tobacco use
CPT/HCPCS: 93306

== ENCOUNTER → 2018-03-31 | Outpatient (CLI) | payer MEDICARE, OTHER ==
--- NOTE | 2018-03-31 12:33 | Diagnostic Imaging Report ---
INDICATION: Routine screening. COMPARISON: Comparison is made with prior mammograms from 03/30/2017 and 02/19/2016. TECHNIQUE: 2D and 3D bilateral screening mammography was performed with computer-aided detection (CAD) system. FINDINGS: Scattered fibroglandular densities are identified bilaterally. There are benign calcifications scattered throughout both breasts. No mass or malignant appearing microcalcifications are seen. The axillae are unremarkable. IMPRESSION: No mammographic features suspicious for malignancy are identified. ACR BI-RADS Category 2: Benign findings. Result letter will be mailed to the patient. Note: At least 10% of breast cancer is not imaged by mammography. Dictated by: Dictated on workstation # [id number]
== END ==
LOC: RAD 09:32
PROVIDERS: ATTEND Internal Medicine
DX: Z12.31 Encounter for screening mammogram for malignant neoplasm of breast (principal)
CPT/HCPCS: 77067

== ENCOUNTER → 2018-06-29 | Outpatient (CLI) | payer MEDICARE, OTHER ==
[~2018-06-29] VITALS: Ht 172.7 cm; Wt 103.4 kg
[~2018-06-29] MED LIST changes: +CATHETER FLUSH 10 ML SYR IV PRN; +REGADENOSON 0.4 MG/5 ML SYR (LEXISCAN) IV ONE
[2018-06-29 09:30] VITALS: BP 160/73
--- NOTE | 2018-06-29 13:36 | STRESS TEST ---
DATE OF SERVICE: 06/29/2018 LEXISCAN MYOVIEW STRESS TEST REPORT REFERRING PHYSICIAN: Dr. Maldonado. Baseline heart rate is 59 and baseline blood pressure 152/72. Baseline EKG is sinus rhythm with no ischemic changes. In summary, the patient was injected with 10.67 mCi of technetium-99 Myoview and the resting images were obtained. Then, the patient received 0.4 mg of Lexiscan followed by 30.0 mCi of technetium-99 Myoview. Throughout the test, there were no EKG changes. The resting and stress images were reviewed and compared in the short axis, horizontal long axis and vertical long axis views. Review of the images showed breast attenuation with typical female pattern. No significant ischemia or infarction was seen. SSS is 2, SDS 2 and TID value is 0.98. On the gated images, the left ventricle appeared to be in normal size with normal contractility. Calculated ejection fraction is 80%. CONCLUSION: 1. The patient tolerated the Lexiscan well. 2. Breast attenuation with typical female pattern. No significant ischemia or infarction on SPECT images. 3. Normal left ventricular size with normal contractility. Calculated ejection fraction is 80%. Job ID: [id number] DocumentID: [id number] Dictated Date: 06/29/2018 13:23:35 Director Clinical Pharmacology Date: 06/29/2018 13:35:05 Dictated By: YANCY MAC MD
== END ==
LOC: CARD 07:46
PROVIDERS: ATTEND Internal Medicine Cardiovascular Disease
DX: R07.9 Chest pain, unspecified (principal); I25.10 Atherosclerotic heart disease of native coronary artery without angina pectoris; I10 Essential (primary) hypertension; E78.5 Hyperlipidemia, unspecified
CPT/HCPCS: 78452; 93017

== ENCOUNTER 2018-11-28 13:30 | Emergency (ER) | payer MEDICARE, OTHER ==
[~2018-11-28] VITALS: Ht 172.7 cm; Wt 99.8 kg
[~2018-11-28 13:30] MED LIST changes: -CATHETER FLUSH 10 ML SYR IV PRN; -REGADENOSON 0.4 MG/5 ML SYR (LEXISCAN) IV ONE
[2018-11-28 13:57] LABS: BASOPHILS % (AUTO) 0 % (0-10); EOSINOPHILS % (AUTO) 1 % (0-10); HEMATOCRIT 40 % (35-52); HEMOGLOBIN 13.9 G/DL (11.5-16.0); LYMPHOCYTES # (AUTO) 1.7 X 10^3 (1.0-4.0); LYMPHOCYTES % (AUTO) 21 % (12-44); MEAN CORPUSCULAR HEMOGLOBIN 29 PG (25-34); MEAN CORPUSCULAR HGB CONC 35 G/DL (32-36); MEAN CORPUSCULAR VOLUME 84 FL (80-99); MEAN PLATELET VOLUME 9.2 FL (7.4-10.4); MONOCYTES # (AUTO) 0.9 X 10^3 (0.0-1.0); MONOCYTES % (AUTO) 12 % (0-12); NEUTROPHILS # (AUTO) 5.2 X 10^3 (1.8-7.8); NEUTROPHILS % (AUTO) 66 % (42-75); PLATELET COUNT 344 10^3/uL (130-400); RED CELL DISTRIBUTION WIDTH 13.5 % (10.0-14.5); WHITE BLOOD COUNT 7.9 10^3/uL (4.3-11.0)
[2018-11-28 14:08] LABS: CARBON DIOXIDE 31 MMOL/L (21-32); CHLORIDE 85 MMOL/L (98-107); CREATININE SERUM 0.72 MG/DL (0.60-1.30); SODIUM 129 MMOL/L (135-145)
[2018-11-28 14:09] LABS: ALANINE AMINOTRANSFERASE 19 U/L (0-55); ALBUMIN 4.5 GM/DL (3.2-4.5); ALKALINE PHOSPHATASE 82 U/L (40-136); BILIRUBIN,TOTAL 0.6 MG/DL (0.1-1.0); BUN/CREATININE RATIO 17; CALCIUM 9.6 MG/DL (8.5-10.1); GFR ESTIMATED > 60; GLUCOSE 117 MG/DL (70-105); TOTAL PROTEIN 7.4 GM/DL (6.4-8.2)
[2018-11-28 14:12] LABS: POTASSIUM 2.5 MMOL/L (3.6-5.0)
[2018-11-28 14:13] LABS: PROTHROMBIN TIME PATIENT 13.8 SEC (12.2-14.7)
[2018-11-28] MEDS ORDERED: ASPIRIN 81 MG CHEW (CHILDREN'S ASA) PO ONE (14:15)
[2018-11-28] MEDS ORDERED: ONDANSETRON 4 MG/2 ML (SDV) Z0FRAN IVP ONE (14:15)
--- NOTE | 2018-11-28 14:22 | Diagnostic Imaging Report ---
INDICATION: Dizziness and chest pain. Exam compared to 11/24/2017 FINDINGS: The lungs are clear. The heart and vessels normal. There is no effusion or pneumothorax. IMPRESSION: Stable negative chest. Dictated by: Dictated on workstation # [id number]
[2018-11-28] MEDS ORDERED: KCL 10 MEQ TAB (MICRO K) PO STA (14:39)
[2018-11-28] MEDS ORDERED: NS IV 1000 ML 1,000 ML IV SCH (14:40)
--- NOTE | 2018-11-28 14:57 | ED Syncope ---
General Chief Complaint: Dizziness/Syncope Stated Complaint: PALPITATIONS, DIZZINESS Nursing Triage Note: PT TO ROOM 4 PER W/C PT CO OF DIZZINESS AND PALPATIONS. STARTED THIS AM, STATES HAD EPISODE ON WEDNESDAY BUT WAS BETTER OVER WEEKEND History of Present Illness Date Seen by Provider: Nov 28, 2018 Time Seen by Provider: 13:35 Initial Comments 72-year-old female presents for tightness in her chest and syncope. She states that she had one episode on Wednesday that lasted approximately 5-10 minutes and then subsided. She had no episodes over the weekend that has had multiple episodes today. She does not take aspirin daily or any blood thinners. She's been evaluated by Dr. Hauser in the past including a stress test and carotid scans. No history of MIs. She reports mild nausea during the episodes and continued nausea today. She did get diaphoretic today. Timing/Prior Episodes: No Prior History, Multiple Episodes Today Symptoms Prior to Episode: Confusion, Diaphoresis, Lightheadedness, Nausea Loss of Consciousness: No Loss of Consciousness Current Symptoms: Back to Normal; No Blurred Vision, No Chest Pain; Diaphoresis; No Dizziness, No Headache, No Injury; Lightheadedness; No Loss of Bladder Control, No Loss of Bowel Control, No Motionless; Nausea; No Pale, No Shallow/Rapid Breathing, No Weak/Absent Pulse, No Weakness Allergies and Home Medications Allergies Coded Allergies: No Known Drug Allergies (Unverified , 11/30/16) Home Medications Acetaminophen 500 Mg Tablet, 1,000 MG PO Q8H PRN for PAIN, (Reported) TAKES 2 (500MG) TABLETS NEEDED FOR PAIN Alprazolam 0.5 Mg Tablet, 0.5 MG PO BID PRN for ANXIETY, (Reported) NEEDED FOR ANXIETY Amlodipine/Atorvast Brian 1 Each Tablet, 1 TAB PO HS, (Reported) 10-20MG TABLET Aspirin 81 Mg Tablet.dr, 81 MG PO DAILY, (Reported) Atenolol 50 Mg Tab, 50 MG PO DAILY, (Reported) Azithromycin 250 Mg Tablet, 250 MG PO DAILY Prescribed by: JUJU ISRAEL on 11/14/17 1054 Biotin 5,000 Mcg Tab.rapdis, 5,000 MCG PO DAILY, (Reported) Calcium Carbonate/Vitamin D3 1 Each Tablet, 1 TAB PO DAILY, (Reported) Cephalexin 500 Mg Capsule, 500 MG PO BID Prescribed by: JUJU ISRAEL on 11/14/17 1054 Clobetasol Propionate/Emoll 15 Gm Cream..g., 1 GM TP DAILY PRN for RASH, (Reported) Fenofibrate 48 Mg Tab, 48 MG PO DAILY, (Reported) Folic Acid 0.4 Mg Tablet, 0.4 MG PO DAILY, (Reported) Furosemide 40 Mg Tablet, 40 MG PO DAILY, (Reported) Hydrocortisone Acetate 28 Gm Oint...g., 1 GM TP DAILY PRN for RASH, (Reported) Levomefolate/B6/B12/Algal Oil 1 Each Capsule, 1 EACH PO BID, (Reported) Losartan/Hydrochlorothiazide 1 Each Tablet, 1 TAB PO DAILY, (Reported) Metaxalone 800 Mg Tablet, 800 MG PO QID, (Reported) Mineral Oil/Petrolatum,White 120 Gm Cream..g., 1 GM TP DAILY PRN for RASH, (Reported) Multivits-Min/Iron/FA/Lutein 1 Each Tablet, 1 EACH PO DAILY, (Reported) [place]-3 Fatty Acids/Fish Oil 1 Each Capsule, 1,000 MG PO DAILY, (Reported) Ondansetron 4 Mg Tab.rapdis, 4 MG PO Q6H PRN for NAUSEA/VOMITING Prescribed by: VANESA KRAUSE on 11/28/18 1538 Potassium Chloride 10 Meq Tablet.er, 10 MEQ PO DAILY Prescribed by: VANESA KRAUSE on 11/28/18 1537 Tiotropium [place] 1 Inh Aerp, 1 CAP IH DAILY, (Reported) Patient Home Medication List Home Medication List Reviewed: Yes Review of Systems Constitutional: see HPI, diaphoresis EENTM: see HPI, no symptoms reported; No blurred vision, No double vision, No vision loss Respiratory: no symptoms reported, see HPI; No cough, No short of breath Cardiovascular: see HPI, palpitations Gastrointestinal: no symptoms reported, see HPI Genitourinary: no symptoms reported, see HPI Musculoskeletal: no symptoms reported, see HPI Skin: no symptoms reported, see HPI Psychiatric/Neurological: No Symptoms Reported, See HPI All Other Systems Reviewed Negative Unless Noted: Yes Past Wonjkdr-Ygnrbh-Rtqzmf Hx Past Med/Social Hx: Reviewed Nursing Past Med/Soc Hx Patient Social History Alcohol Use: Denies Use Recreational Drug Use: No Smoking Status: Never a Smoker Type Used: Cigarettes Former Smoker, Quit: Apr 15, 2013 Recent Foreign Travel: No Contact w/Someone Who Travel: No Recent Infectious Disease Expo: No Recent Hopitalizations: No Physical Abuse: No Sexual Abuse: No Immunizations Up To Date Date of Pneumonia Vaccine: Jan 16, 2014 Date of Influenza Vaccine: Jan 27, 2016 Seasonal Allergies Seasonal Allergies: No Past Medical History Surgeries: Yes (r carotid, NECK SURGERY) Appendectomy, Section, Gallbladder, Hysterectomy, Vascular Surgery Respiratory: Yes (uses inhaler due to smoking hx, suspect COPD) Currently Using CPAP: No Currently Using BIPAP: No Cardiac: Yes (heart angioplasty/rt endarectomh) Chronic Edema/Swelling, High Cholesterol, Hypertension, Peripheral Vascular Neurological: No Reproductive Disorders: No [employer]IVE [employer] INS[employer]OR History: Hysterectomy Sexually Transmitted Disease: No HIV/AIDS: No Genitourinary: No Gastrointestinal: Yes Gastroesophageal Reflux Musculoskeletal: Yes Arthritis Endocrine: No HEENT: Yes Cataract Loss of Vision: Bilateral Hearing Impairment: Denies Cancer: No Psychosocial: Yes Anxiety Integumentary: Yes Eczema Blood Disorders: No Adverse Reaction/Blood Tranf: No (N/A) Family Medical History Completed stroke 19 FATHER FH: COPD (chronic obstructive pulmonary disease) G8 SISTER, Onset:Unknown FH: skin cancer 19 FATHER, Onset:Unknown Myocardial infarction G8 SISTER, Onset:Unknown Physical Exam Vital Signs Vital Signs - First Documented 11/28/18 11/28/18 13:30 16:10 Temp 97.7 Pulse 74 Resp 18 B/P (MAP) 162/76 (104) Pulse Ox 94 O2 Delivery Room Air Capillary Refill : Less Than 3 Seconds Height, Weight, BMI Height: 5'8.00" Weight: 220lbs. 0.0oz. 99.386547sk; 34.7 BMI Method:Stated General Appearance: No Apparent Distress, WD/WN HEENT: PERRL/EOMI, TMs Normal, Normal ENT Inspection, Pharynx Normal Neck: Full Range of Motion, Normal Inspection, Non Tender, Supple Cardiovascular: Regular Rate, Rhythm, No Edema, No Murmur, Normal Peripheral Pulses Respiratory: Chest Non Tender, Lungs Clear, Normal Breath Sounds, No Respi ratory Distress Gastrointestinal: Normal Bowel Sounds, Non Tender, Soft Back: Normal Inspection, No CVA Tenderness, No Vertebral Tenderness Extremities: Normal Capillary Refill, Normal Inspection, Normal Range of Motion, No Pedal Edema Neurologic/Psychiatric: Alert, Oriented x3, No Motor/Sensory Deficits, Normal Mood/Affect, 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 Norm as Tested Cranial Nerves: Normal Hearing, Normal Speech, PERRL Coordination/Gait: Normal Finger to Nose, Normal Gait Motor/Sensory: No Motor Deficit, No Sensory Deficit Skin: Normal Color, Warm/Dry Lymphatic: No Adenopathy Progress/Results/Core Measures Results/Orders Lab Results Laboratory Tests Test 11/28/18 13:35 11/28/18 13:55 Range/Units White Blood Count 7.9 4.3-11.0 10^3/uL Red Blood Count 4.72 4.35-5.85 10^6/uL Hemoglobin 13.9 11.5-16.0 G/DL Hematocrit 40 35-52 % Mean Corpuscular Volume 84 80-99 FL Mean Corpuscular Hemoglobin 29 25-34 PG Mean Corpuscular Hemoglobin Concent 35 32-36 G/DL Red Cell Distribution Width 13.5 10.0-14.5 % Platelet Count 344 130-400 10^3/uL Mean Platelet Volume 9.2 7.4-10.4 FL Neutrophils (%) (Auto) 66 42-75 % Lymphocytes (%) (Auto) 21 12-44 % Monocytes (%) (Auto) 12 0-12 % Eosinophils (%) (Auto) 1 0-10 % Basophils (%) (Auto) 0 0-10 % Neutrophils # (Auto) 5.2 1.8-7.8 X 10^3 Lymphocytes # (Auto) 1.7 1.0-4.0 X 10^3 Monocytes # (Auto) 0.9 0.0-1.0 X 10^3 Eosinophils # (Auto) 0.0 0.0-0.3 10^3/uL Basophils # (Auto) 0.0 0.0-0.1 10^3/uL Prothrombin Time 13.8 12.2-14.7 SEC INR Comment 1.0 0.8-1.4 Activated Partial Thromboplast Time 36 H 24-35 SEC Sodium Level 129 L 135-145 MMOL/L Potassium Level 2.5 *L 3.6-5.0 MMOL/L Chloride Level 85 L 98-107 MMOL/L Carbon Dioxide Level 31 21-32 MMOL/L Anion Gap 13 5-14 MMOL/L Blood Urea Nitrogen 12 7-18 MG/DL Creatinine 0.72 0.60-1.30 MG/DL Estimat Glomerular Filtration Rate > 60 BUN/Creatinine Ratio 17 Glucose Level 117 H 70-105 MG/DL Calcium Level 9.6 8.5-10.1 MG/DL Corrected Calcium 9.2 8.5-10.1 MG/DL Total Bilirubin 0.6 0.1-1.0 MG/DL Aspartate Amino Transf (AST/SGOT) 31 5-34 U/L Alanine Aminotransferase (ALT/SGPT) 19 0-55 U/L Alkaline Phosphatase 82 40-136 U/L Troponin I < 0.028 <0.028 NG/ML Total Protein 7.4 6.4-8.2 GM/DL Albumin 4.5 3.2-4.5 GM/DL Magnesium Level 1.7 1.6-2.4 MG/DL My Orders Orders - VANESA KRAUSE Cbc With Automated Diff (11/28/18 13:42) Comprehensive Metabolic Panel (11/28/18 13:42) Ekg Tracing (11/28/18 13:42) Troponin I (11/28/18 14:02) Chest Pa/Lat (2 View) (11/28/18 14:02) Aspirin Chewable Tablet (Baby Aspirin Ch (11/28/18 14:15) Protime With Inr (11/28/18 14:02) Partial Thromboplastin Time (11/28/18 14:02) Ondansetron Injection (Zofran Injectio (11/28/18 14:15) Potassium Chloride (Tablet) (Klor Con Ta (11/28/18 14:39) Ed Iv/Invasive Line Start (11/28/18 14:40) Ns Iv 1000 Ml (Sodium Chloride 0.9%) (11/28/18 14:40) Magnesium (11/28/18 15:34) Medications Given in ED Current Medications Medications Dose Ordered Sig/Froilan Route Start Time Stop Time Status Last Admin Dose Admin Aspirin 324 mg ONCE ONCE PO 11/28/18 14:15 11/28/18 14:16 DC 11/28/18 14:10 324 MG Ondansetron HCl 4 mg ONCE ONCE IVP 11/28/18 14:15 11/28/18 14:16 DC 11/28/18 14:10 4 MG Vital Signs/I&O 11/28/18 11/28/18 13:30 16:10 Temp 97.7 97.7 Pulse 74 66 Resp 18 18 B/P (MAP) 162/76 (104) 155/71 (99) Pulse Ox 94 98 O2 Delivery Room Air Blood Pressure Mean: 104 Progress Progress Note : Time: 13:35 Progress Note Patient seen and evaluated, we'll give aspirin 324 mg orally, chest x-ray, labs, and EKG. Zofran 4 mg IV for nausea. 1425 patient reports nausea is improved, potassium is 2.5 and sodium 129. Will give oral potassium 20 milliequivalents. Normal saline 1 L per IV. Patient denies any further chest pressure or palpitations. [address] Hauser, recommended starting potassium supplementation at home and reevaluation with him in the office later this week. Discharge instructions and return precautions reviewed with the patient and her spouse. All questions answered. Initial ECG Impression Date: Nov 28, 2018 Initial ECG Impression Time: 13:39 Initial ECG Rate: 68 Initial ECG Rhythm: Normal Sinus Initial ECG Intervals IN 160, QRSD 106, QT 412, QTC 439. [place] P 36, QRS 63, T 65. Initial ECG Impression: Normal Initial ECG Comparisson: Unchanged Comment Reviewed with Dr. Mendoza, agreed with interpretation. Diagnostic Imaging Diagonstic Imaging: Xray Plain Films/CT/US/NM/MRI: chest Comments NAME: RUTHANNKashMERY Phylogy REC#: [id number] PHYSICIAN: VANESA KRAUSE CC: RENETTA GRUBBS; VANESA KRAUSE Page 1 of 1 RADIOLOGY REPORT [facility] [place] CC: RENETTA GRUBBS; VANESA KRAUSE Page 1 of 1 RADIOLOGY REPORT NAME: SARINAMERY [facility] REC#: [id number] PT STATUS: REG ER : 1945 PHYSICIAN: VANESA KRAUSE ADMIT DATE: 11/28/18/ER Signed Date of Exam: 11/28/18 CHEST PA/LAT (2 VIEW) INDICATION: Dizziness and chest pain. Exam compared to 11/24/2017 FINDINGS: The lungs are clear. The heart and vessels normal. There is no effusion or pneumothorax. IMPRESSION: Stable negative chest. Dictated by: Dictated on workstation # [id number] Dict: 11/28/18 1419 Trans: 11/28/18 1429 Interpreted by: RENETTA GRUBBS Electronically signed by: RENETTA GRUBBS 11/28/18 1429 Reviewed: Reviewed by Me Departure Impression Primary Impression: Hypokalemia Additional Impressions: Syncopal episodes Qualified Codes: R55 - Syncope and collapse Palpitations Disposition: 01 HOME, SELF-CARE Condition: Improved Departure-Patient Inst. Decision time for Depature: 15:20 Referrals: MICHAELA KESSLER MD (PCP/Family) Primary Care Physician Patient Instructions: Hypokalemia (DC), Palpitations (DC) Add. Discharge Instructions: Continue to take your home medications as prescribed. Take the potassium supplement as prescribed. Call Dr. Hauser's office tomorrow for follow-up later this week. Return to emergency department for chest pain, shortness of breath, or new concerns. All discharge instructions reviewed with patient and/or family. Voiced understanding. Scripts Ondansetron (Ondansetron Odt) 4 Mg Tab.rapdis 4 MG PO Q6H PRN for NAUSEA/VOMITING, #8 TAB 0 Refills Prov: VANESA KRAUSE 11/28/18 Potassium Chloride (K-Tab ER) 10 Meq Tablet.er 10 MEQ PO DAILY, #30 TAB 0 Refills Prov: VANESA KRAUSE 11/28/18 Copy Copies To 1: YANCY HAUSER MD; MICHAELA KESSLER MD, AMY ARNP Nov 28, 2018 14:57
[2018-11-28] MEDS ORDERED: POTA10TA PO (15:37)
[2018-11-28] MEDS ORDERED: ONDA4TAB11 PO (15:38)
[2018-11-28 16:10] VITALS: BP 155/71
== END 2018-11-28 16:06 | disposition home or self-care (01) ==
LOC: EDUNIT# 13:30 → ER 13:31
DX: E87.6 Hypokalemia (principal); R55 Syncope and collapse; R00.2 Palpitations; I10 Essential (primary) hypertension; E78.00 Pure hypercholesterolemia, unspecified; I73.9 Peripheral vascular disease, unspecified; K21.9 Gastro-esophageal reflux disease without esophagitis; F41.9 Anxiety disorder, unspecified; Z79.82 Long term (current) use of aspirin; Z87.891 Personal history of nicotine dependence; Z90.49 Acquired absence of other specified parts of digestive tract; Z90.710 Acquired absence of both cervix and uterus; Z80.8 Family history of malignant neoplasm of other organs or systems
CPT/HCPCS: 36415; 71046; 80053; 83735; 84484; 85025; 85610; 85730; 93005

== ENCOUNTER 2018-12-04 14:38 | Inpatient (IN) | payer MEDICARE, OTHER ==
[~2018-12-04] VITALS: Ht 172.7 cm; Wt 100.7 kg
[2018-12-04] VITALS (8 sets, daily range): BP systolic 114–179; BP diastolic 66–87
[~2018-12-04 14:38] MED LIST changes: +ONDA4TAB11 PO; +POTA10TA PO
[2018-12-04] MEDS ORDERED: NS IV 1000 ML 1,000 ML ONE (15:04)
[2018-12-04 15:07] LABS: BASOPHILS # (AUTO) 0.1 10^3/uL (0.0-0.1); BASOPHILS % (AUTO) 1 % (0-10); EOSINOPHILS # (AUTO) 0.1 10^3/uL (0.0-0.3); EOSINOPHILS % (AUTO) 2 % (0-10); HEMATOCRIT 39 % (35-52); HEMOGLOBIN 13.5 G/DL (11.5-16.0); LYMPHOCYTES # (AUTO) 1.8 X 10^3 (1.0-4.0); LYMPHOCYTES % (AUTO) 31 % (12-44); MEAN CORPUSCULAR HEMOGLOBIN 30 PG (25-34); MEAN CORPUSCULAR HGB CONC 34 G/DL (32-36); MEAN CORPUSCULAR VOLUME 86 FL (80-99); MEAN PLATELET VOLUME 9.3 FL (7.4-10.4); MONOCYTES # (AUTO) 0.7 X 10^3 (0.0-1.0); MONOCYTES % (AUTO) 13 % (0-12); NEUTROPHILS % (AUTO) 53 % (42-75); PLATELET COUNT 322 10^3/uL (130-400); RED CELL DISTRIBUTION WIDTH 13.6 % (10.0-14.5); WHITE BLOOD COUNT 5.7 10^3/uL (4.3-11.0)
[2018-12-04] MEDS ORDERED: NS IV 1000 ML 1,000 ML IV SCH (15:15)
[2018-12-04 15:31] LABS: ALANINE AMINOTRANSFERASE 14 U/L (0-55); ALBUMIN 4.2 GM/DL (3.2-4.5); ALKALINE PHOSPHATASE 78 U/L (40-136); BILIRUBIN,TOTAL 0.5 MG/DL (0.1-1.0); BUN/CREATININE RATIO 15; CALCIUM 9.5 MG/DL (8.5-10.1); CARBON DIOXIDE 29 MMOL/L (21-32); CHLORIDE 88 MMOL/L (98-107); CREATININE SERUM 0.66 MG/DL (0.60-1.30); GFR ESTIMATED > 60; GLUCOSE 113 MG/DL (70-105); POTASSIUM 4.3 MMOL/L (3.6-5.0); SODIUM 128 MMOL/L (135-145)
--- NOTE | 2018-12-04 15:36 | ED General ---
General Chief Complaint: General Problems/Pain Stated Complaint: SHAKY/FREQUENT FALLS/AMS Nursing Triage Note: PT AMB TO [facility] 2 WITH COMPLAINT OF FEELING "WHOOZY". PT WAS SEEN HERE WEDNESDAY AND DIAGNOSED WITH LOW POTASSIUM. STATES SHE WAS GIVEN ORAL POTASSIUM. PT FOLLOWED UP WITH DR HERNANDEZ THIS WEEK. LASIX DOSE WAS CUT IN HALF. STATES PT WILL HAVE TIMES WHERE SHE ACTS LIKE SHE IS NOT COMPREHENDING WHAT HE IS SAYING. Nursing Sepsis Screen: No Definite Risk Source of Information: Patient, Spouse Exam Limitations: No Limitations History of Present Illness Date Seen by Provider: Dec 04, 2018 Time Seen by Provider: 14:45 Initial Comments Patient resents to ER with her with chief complaint that for the past week she's been feeling woozy or not herself. She in the ER and was diagnosed with hypokalemia. She uses furosemide for apparently dependent edema. She does not have a history of CHF. She's not having any shortness of breath chest pain nausea but she has had some chills. No cough wheezing or history of lung disease. She's not having any edema now. No orthopnea. She was put on potassium outpatient and followed by her primary care team that today her has noticed that she still having some waxing and waning awareness of where she is at. Allergies and Home Medications Allergies Coded Allergies: No Known Drug Allergies (Unverified , 11/30/16) Home Medications Acetaminophen 500 Mg Tablet, 1,000 MG PO Q8H PRN for PAIN, (Reported) TAKES 2 (500MG) TABLETS NEEDED FOR PAIN Alprazolam 0.5 Mg Tablet, 0.5 MG PO BID PRN for ANXIETY, (Reported) NEEDED FOR ANXIETY Amlodipine/Atorvast Brian 1 Each Tablet, 1 TAB PO HS, (Reported) 10-20MG TABLET Aspirin 81 Mg Tablet.dr, 81 MG PO DAILY, (Reported) Atenolol 50 Mg Tab, 50 MG PO DAILY, (Reported) Azithromycin 250 Mg Tablet, 250 MG PO DAILY Prescribed by: JUJU ISRAEL on 11/14/17 1054 Biotin 5,000 Mcg Tab.rapdis, 5,000 MCG PO DAILY, (Reported) Calcium Carbonate/Vitamin D3 1 Each Tablet, 1 TAB PO DAILY, (Reported) Cephalexin 500 Mg Capsule, 500 MG PO BID Prescribed by: JUJU ISRAEL on 11/14/17 1054 Clobetasol Propionate/Emoll 15 Gm Cream..g., 1 GM TP DAILY PRN for RASH, (Reported) Fenofibrate 48 Mg Tab, 48 MG PO DAILY, (Reported) Folic Acid 0.4 Mg Tablet, 0.4 MG PO DAILY, (Reported) Furosemide 40 Mg Tablet, 40 MG PO DAILY, (Reported) Hydrocortisone Acetate 28 Gm Oint...g., 1 GM TP DAILY PRN for RASH, (Reported) Levomefolate/B6/B12/Algal Oil 1 Each Capsule, 1 EACH PO BID, (Reported) Losartan/Hydrochlorothiazide 1 Each Tablet, 1 TAB PO DAILY, (Reported) Metaxalone 800 Mg Tablet, 800 MG PO QID, (Reported) Mineral Oil/Petrolatum,White 120 Gm Cream..g., 1 GM TP DAILY PRN for RASH, (Reported) Multivits-Min/Iron/FA/Lutein 1 Each Tablet, 1 EACH PO DAILY, (Reported) [place]-3 Fatty Acids/Fish Oil 1 Each Capsule, 1,000 MG PO DAILY, (Reported) Ondansetron 4 Mg Tab.rapdis, 4 MG PO Q6H PRN for NAUSEA/VOMITING Prescribed by: VANESA KRAUSE on 11/28/18 1538 Potassium Chloride 10 Meq Tablet.er, 10 MEQ PO DAILY Prescribed by: VANESA KRAUSE on 11/28/18 1537 Tiotropium [place] 1 Inh Aerp, 1 CAP IH DAILY, (Reported) Patient Home Medication List Home Medication List Reviewed: Yes Review of Systems Review of Systems Constitutional: chills; No diaphoresis, No fever; malaise EENTM: No ear discharge, No ear pain Respiratory: No cough, No short of breath Cardiovascular: No chest pain, No edema Gastrointestinal: No abdominal pain, No constipation, No diarrhea, No nausea Genitourinary: No discharge, No dysuria Musculoskeletal: No back pain, No joint pain Skin: No pruritus, No rash Psychiatric/Neurological: Denies Headache, Denies Numbness, Denies Paresthesia Past Csnueba-Csmycf-Dgqdos Hx Patient Social History Alcohol Use: Denies Use Recreational Drug Use: No Smoking Status: Former Smoker Type Used: Cigarettes Former Smoker, Quit: Apr 15, 2013 Recent Foreign Travel: No Contact w/Someone Who Travel: No Recent Infectious Disease Expo: No Recent Hopitalizations: No Physical Abuse: No Sexual Abuse: No Mistreated: No Fear: No Immunizations Up To Date Date of Pneumonia Vaccine: Jan 16, 2014 Date of Influenza Vaccine: Jan 27, 2016 Seasonal Allergies Seasonal Allergies: No Past Medical History Surgeries: Yes (r carotid, NECK SURGERY) Appendectomy, Section, Gallbladder, Hysterectomy, Vascular Surgery Respiratory: Yes (uses inhaler due to smoking hx, suspect COPD) Currently Using CPAP: No Currently Using BIPAP: No Cardiac: Yes (heart angioplasty/rt endarectomh) Chronic Edema/Swelling, High Cholesterol, Hypertension, Peripheral Vascular Neurological: No Reproductive Disorders: No [employer]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 Sexually Transmitted Disease: No HIV/AIDS: No Genitourinary: No Gastrointestinal: Yes Gastroesophageal Reflux Musculoskeletal: Yes Arthritis Endocrine: No HEENT: Yes Cataract Loss of Vision: Bilateral Hearing Impairment: Denies Cancer: No Psychosocial: Yes Anxiety Integumentary: Yes Eczema Blood Disorders: No Adverse Reaction/Blood Tranf: No (N/A) Family Medical History Completed stroke 19 FATHER FH: COPD (chronic obstructive pulmonary disease) G8 SISTER, Onset:Unknown FH: skin cancer 19 FATHER, Onset:Unknown Myocardial infarction G8 SISTER, Onset:Unknown Physical Exam Vital Signs Vital Signs - First Documented 12/04/18 14:45 Temp 97.3 Pulse 74 Resp 15 B/P (MAP) 162/96 (118) Pulse Ox 96 O2 Delivery Room Air Capillary Refill : Less Than 3 Seconds Height, Weight, BMI Height: 5'8.00" Weight: 220lbs. 0.0oz. 99.305495kp; 34.7 BMI Method:Stated General Appearance: No Apparent Distress, WD/WN Eyes: Bilateral Eye Normal Inspection, Bilateral Eye PERRL, Bilateral Eye EOMI HEENT: PERRL/EOMI, TMs Normal, Normal ENT Inspection, Pharynx Normal, Moist Mucous Membranes Neck: Full Range of Motion, Normal Inspection, Non Tender, Supple Respiratory: Chest Non Tender, Lungs Clear, Normal Breath Sounds, No Accessory Muscle Use, No Respiratory Distress Cardiovascular: Regular Rate, Rhythm, No Edema, No Gallop, No JVD, No Murmur, Normal Peripheral Pulses Gastrointestinal: Normal Bowel Sounds, No Organomegaly, Non Tender, Soft Extremity: Normal Capillary Refill, Normal Inspection, Non Tender, No Calf Tenderness, No Pedal Edema Neurologic/Psychiatric: Alert, Oriented x3, No Motor/Sensory Deficits, Normal Mood/Affect, director voice II-XII Norm as Tested Skin: Normal Color, Warm/Dry Progress/Results/Core Measures Suspected Sepsis Recent Fever Within 48 Hours: No Infection Criteria Present: None New/Unexplained Altered Menta: No Sepsis Screen: No Definite Risk SIRS Temperature:97.3 Pulse: 82 Respiratory Rate: 15 Laboratory Tests 12/04/18 14:56: White Blood Count 5.7 Blood Pressure 114 /80 Mean: 91 Laboratory Tests 12/04/18 14:56: Creatinine 0.66, Platelet Count 322, Total Bilirubin 0.5 Results/Orders Lab Results Laboratory Tests Test 12/04/18 14:56 12/04/18 17:08 Range/Units White Blood Count 5.7 4.3-11.0 10^3/uL Red Blood Count 4.57 4.35-5.85 10^6/uL Hemoglobin 13.5 11.5-16.0 G/DL Hematocrit 39 35-52 % Mean Corpuscular Volume 86 80-99 FL Mean Corpuscular Hemoglobin 30 25-34 PG Mean Corpuscular Hemoglobin Concent 34 32-36 G/DL Red Cell Distribution Width 13.6 10.0-14.5 % Platelet Count 322 130-400 10^3/uL Mean Platelet Volume 9.3 7.4-10.4 FL Neutrophils (%) (Auto) 53 42-75 % Lymphocytes (%) (Auto) 31 12-44 % Monocytes (%) (Auto) 13 H 0-12 % Eosinophils (%) (Auto) 2 0-10 % Basophils (%) (Auto) 1 0-10 % Neutrophils # (Auto) 3.0 1.8-7.8 X 10^3 Lymphocytes # (Auto) 1.8 1.0-4.0 X 10^3 Monocytes # (Auto) 0.7 0.0-1.0 X 10^3 Eosinophils # (Auto) 0.1 0.0-0.3 10^3/uL Basophils # (Auto) 0.1 0.0-0.1 10^3/uL Sodium Level 128 L 135-145 MMOL/L Potassium Level 4.3 3.6-5.0 MMOL/L Chloride Level 88 L 98-107 MMOL/L Carbon Dioxide Level 29 21-32 MMOL/L Anion Gap 11 5-14 MMOL/L Blood Urea Nitrogen 10 7-18 MG/DL Creatinine 0.66 0.60-1.30 MG/DL Estimat Glomerular Filtration Rate > 60 BUN/Creatinine Ratio 15 Glucose Level 113 H 70-105 MG/DL Calcium Level 9.5 8.5-10.1 MG/DL Corrected Calcium 9.3 8.5-10.1 MG/DL Magnesium Level 2.0 1.6-2.4 MG/DL Total Bilirubin 0.5 0.1-1.0 MG/DL Aspartate Amino Transf (AST/SGOT) 20 5-34 U/L Alanine Aminotransferase (ALT/SGPT) 14 0-55 U/L Alkaline Phosphatase 78 40-136 U/L Troponin I < 0.028 <0.028 NG/ML C-Reactive Protein High Sensitivity 0.32 0.00-0.50 MG/DL B-Type Natriuretic Peptide 67.9 <100.0 PG/ML Total Protein 7.0 6.4-8.2 GM/DL Albumin 4.2 3.2-4.5 GM/DL Urine Color YELLOW Urine Clarity CLEAR Urine pH 8 5-9 Urine Specific [place] 1.010 L 1.016-1.022 Urine Protein NEGATIVE NEGATIVE Urine Glucose (UA) NEGATIVE NEGATIVE Urine Ketones NEGATIVE NEGATIVE Urine Nitrite NEGATIVE NEGATIVE Urine Bilirubin NEGATIVE NEGATIVE Urine Urobilinogen NORMAL NORMAL MG/DL Urine Leukocyte Esterase NEGATIVE NEGATIVE Urine RBC (Auto) NEGATIVE NEGATIVE Urine RBC NONE /HPF Urine WBC NONE /HPF Urine Squamous Epithelial Cells 5-10 /HPF Urine Crystals NONE /LPF Urine Bacteria FEW H /HPF Urine Casts NONE /LPF Urine Mucus NEGATIVE /LPF Urine Culture Indicated NO My Orders Orders - YOSVANY,NESTOR J Chest 1 View, Ap/Pa Only (12/04/18 14:54) BNP (12/04/18 14:54) Cbc With Automated Diff (12/04/18 14:54) Comprehensive Metabolic Panel (12/04/18 14:54) Hs C Reactive Protein (12/04/18 14:54) Magnesium (12/04/18 14:54) Ua Culture If Indicated (12/04/18 14:54) Troponin I (12/04/18 14:54) Ed Iv/Invasive Line Start (12/04/18 14:54) Continuous Ekg Monitoring (12/04/18 14:54) Ekg Tracing (12/04/18 14:54) Orthostatic Vital Signs (Adult (12/04/18 14:54) Ns Iv 1000 Ml (Sodium Chloride 0.9%) (12/04/18 15:15) Ns Iv 1000 Ml (Sodium Chloride 0.9%) (12/04/18 15:04) Vital Signs/I&O 12/04/18 12/04/18 14:45 15:06 Temp 97.3 Pulse 74 71 75 82 Resp 15 B/P (MAP) 162/96 (118) 150/66 (94) 148/76 (100) 114/80 (91) Pulse Ox 96 O2 Delivery Room Air Capillary Refill : Less Than 3 Seconds Blood Pressure Mean: 91 Progress Note #1: Time: 15:38 Progress Note Labs, urine, EKG. Orthostatic vital signs were positive so we'll give her a liter fluids and repeat the orthostatic vital signs. Progress Note #2: Time: 17:20 Progress Note Hyponatremia. Urinalysis still pending. It's possible her hyponatremia could be causing her delirium. We have given 1 L fluids. Her sodium was 129, 6 days ago when she first presented. ECG Initial ECG Impression Date: Dec 04, 2018 Initial ECG Impression Time: 15:19 Initial ECG Rate: 73 Initial ECG Rhythm: Normal Sinus Initial ECG Intervals: QT (437) Initial ECG Impression: Normal, Nonspecific Changes Comment Tremor artifact with normal sinus rhythm and no clinically evident ST depression or elevation. Diagnostic Imaging Diagonstic Imaging: Xray Plain Films/CT/US/NM/MRI: chest (1v) Comments NAME: MERY BRANCH [facility] REC#: [id number] PT STATUS: REG ER : 1945 PHYSICIAN: NESTOR BAR MD ADMIT DATE: 12/04/18/ER Signed Date of Exam:12/04/18 CHEST 1 VIEW, AP/PA ONLY INDICATION: Nausea and low potassium. Comparison made with prior examination 11/28/2018. FINDINGS: The heart size is normal. Mediastinum is unremarkable. Lungs are clear. There is no pleural effusion or pneumothorax. IMPRESSION: No acute cardiopulmonary abnormality. Dictated by: Dictated on workstation # [id number] Dict: 12/04/18 1535 Trans: 12/04/18 1625 [id number] Interpreted by: ROSANGELA MAHER MD Electronically signed by: ROSANGELA MAHER MD 12/04/18 1625 Reviewed: Reviewed by Me Departure Communication (Admissions) Time/Spoke to Admitting Phy: 18:15 Discussed the case with Dr. Castaneda and she agrees to admit the patient, maintenance fluids, oral intake and will disposition from there. Impression Primary Impression: Orthostatic hypotension Additional Impressions: Hyponatremia syndrome Delirium Disposition: ADMITTED INPATIENT Condition: Stable Admissions Decision to Admit Reason: Admit from ER (General) Decision to Admit/Date: Dec 04, 2018 Time/Decision to Admit Time: 18:00 Departure-Patient Inst. Referrals: MICHAELA KESSLER MD (PCP/Family) Primary Care Physician NESTOR BAR Dec 04, 2018 15:36
--- NOTE | 2018-12-04 15:43 | Diagnostic Imaging Report ---
INDICATION: Nausea and low potassium. Comparison made with prior examination 11/28/2018. FINDINGS: The heart size is normal. Mediastinum is unremarkable. Lungs are clear. There is no pleural effusion or pneumothorax. IMPRESSION: No acute cardiopulmonary abnormality. Dictated by: Dictated on workstation # [id number]
[2018-12-04 17:31] LABS: BILIRUBIN,URINE NEGATIVE (NEGATIVE); CLARITY,URINE CLEAR; COLOR,URINE YELLOW; GLUCOSE, URINE (UA) NEGATIVE (NEGATIVE); KETONES,URINE NEGATIVE (NEGATIVE); LEUKOCYTE ESTERASE ,URINE NEGATIVE (NEGATIVE); NITRITE,URINE NEGATIVE (NEGATIVE); PH,URINE 8 (5-9); PROTEIN,URINE NEGATIVE (NEGATIVE); UROBILINOGEN,URINE NORMAL (NORMAL)
[2018-12-04 17:42] LABS: BACTERIA,URINE FEW /HPF
[2018-12-04] MEDS ORDERED: IBUPROFEN 800 MG (MOTRIN) TAB PO PRN (20:30)
[2018-12-04] MEDS ORDERED: ACETAMINOPHEN 500 MG TAB (TYLENOL) PO PRN (20:30)
[2018-12-04] MEDS ORDERED: ONDANSETRON 4 MG/2 ML (SDV) Z0FRAN IV PRN (20:30)
[2018-12-04] MEDS: NS IV 1000 ML 1,000 ML IV SCH (20:59)
[2018-12-04] MEDS: ALPRAZolam 0.5 MG (XANAX) TAB PO PRN (21:58)
[2018-12-04] MEDS: ATORVASTATIN 20 MG (LIPITOR) TABLET PO SCH (21:58)
[2018-12-05 03:59] LABS: BASOPHILS # (AUTO) 0.1 10^3/uL (0.0-0.1); BASOPHILS % (AUTO) 1 % (0-10); EOSINOPHILS # (AUTO) 0.2 10^3/uL (0.0-0.3); EOSINOPHILS % (AUTO) 3 % (0-10); HEMATOCRIT 36 % (35-52); HEMOGLOBIN 12.2 G/DL (11.5-16.0); LYMPHOCYTES # (AUTO) 2.3 X 10^3 (1.0-4.0); LYMPHOCYTES % (AUTO) 38 % (12-44); MEAN CORPUSCULAR HGB CONC 34 G/DL (32-36); MEAN CORPUSCULAR VOLUME 87 FL (80-99); MEAN PLATELET VOLUME 8.9 FL (7.4-10.4); MONOCYTES # (AUTO) 0.7 X 10^3 (0.0-1.0); MONOCYTES % (AUTO) 12 % (0-12); NEUTROPHILS # (AUTO) 2.8 X 10^3 (1.8-7.8); NEUTROPHILS % (AUTO) 46 % (42-75); PLATELET COUNT 294 10^3/uL (130-400); RED CELL DISTRIBUTION WIDTH 14.1 % (10.0-14.5); WHITE BLOOD COUNT 6.1 10^3/uL (4.3-11.0)
[2018-12-05 04:00] VITALS: BP 170/81
[2018-12-05 04:09] LABS: MEAN CORPUSCULAR HEMOGLOBIN 29 PG (25-34)
[2018-12-05] MEDS: NS IV 1000 ML 1,000 ML IV SCH ×2 (04:11→11:35)
[2018-12-05 04:18] LABS: BUN/CREATININE RATIO 14; CALCIUM 8.6 MG/DL (8.5-10.1); CARBON DIOXIDE 25 MMOL/L (21-32); CHLORIDE 97 MMOL/L (98-107); CREATININE SERUM 0.59 MG/DL (0.60-1.30); GFR ESTIMATED > 60; GLUCOSE 107 MG/DL (70-105); MAGNESIUM 1.8 MG/DL (1.6-2.4); POTASSIUM 3.6 MMOL/L (3.6-5.0); SODIUM 130 MMOL/L (135-145)
--- NOTE | 2018-12-05 06:38 | Pulmonary Consultation ---
History of Present Illness History of Present Illness Date of Consultation 12/05/18 06:33 Time Seen by Provider: 06:33 Date of Admission History of Present Illness 72yo presented to ED secondary to dizziness, mild nausea, fatigue. Pt was found to have hypokalemia last week. Pt does take PO lasix for edema and dose was decreased. Denies CP, SOB no vomiting or abdominal pain. No syncope. Allergies and Home Medications Allergies Coded Allergies: No Known Drug Allergies (Unverified , 11/30/16) Home Medications Acetaminophen 500 Mg Tablet, 1,000 MG PO Q8H PRN for PAIN, (Reported) TAKES 2 (500MG) TABLETS NEEDED FOR PAIN Alprazolam 0.5 Mg Tablet, 0.5 MG PO BID PRN for ANXIETY, (Reported) NEEDED FOR ANXIETY Amlodipine/Atorvast Brian 1 Each Tablet, 1 TAB PO HS, (Reported) 10-20MG TABLET Aspirin 81 Mg Tablet.dr, 81 MG PO DAILY, (Reported) Atenolol 50 Mg Tab, 50 MG PO DAILY, (Reported) Azithromycin 250 Mg Tablet, 250 MG PO DAILY Prescribed by: JUJU ISRAEL on 11/14/17 1054 Biotin 5,000 Mcg Tab.rapdis, 5,000 MCG PO DAILY, (Reported) Calcium Carbonate/Vitamin D3 1 Each Tablet, 1 TAB PO DAILY, (Reported) Cephalexin 500 Mg Capsule, 500 MG PO BID Prescribed by: JUJU ISRAEL on 11/14/17 1054 Clobetasol Propionate/Emoll 15 Gm Cream..g., 1 GM TP DAILY PRN for RASH, (Reported) Fenofibrate 48 Mg Tab, 48 MG PO DAILY, (Reported) Folic Acid 0.4 Mg Tablet, 0.4 MG PO DAILY, (Reported) Furosemide 40 Mg Tablet, 40 MG PO DAILY, (Reported) Hydrocortisone Acetate 28 Gm Oint...g., 1 GM TP DAILY PRN for RASH, (Reported) Levomefolate/B6/B12/Algal Oil 1 Each Capsule, 1 EACH PO BID, (Reported) Losartan/Hydrochlorothiazide 1 Each Tablet, 1 TAB PO DAILY, (Reported) Metaxalone 800 Mg Tablet, 800 MG PO QID, (Reported) Mineral Oil/Petrolatum,White 120 Gm Cream..g., 1 GM TP DAILY PRN for RASH, (Reported) Multivits-Min/Iron/FA/Lutein 1 Each Tablet, 1 EACH PO DAILY, (Reported) [place]-3 Fatty Acids/Fish Oil 1 Each Capsule, 1,000 MG PO DAILY, (Reported) Ondansetron 4 Mg Tab.rapdis, 4 MG PO Q6H PRN for NAUSEA/VOMITING Prescribed by: VANESA KRAUSE on 11/28/18 1538 Potassium Chloride 10 Meq Tablet.er, 10 MEQ PO DAILY Prescribed by: VANESA KRAUSE on 11/28/18 1537 Tiotropium [place] 1 Inh Aerp, 1 CAP IH DAILY, (Reported) Past Iwdlvbl-Aqauzv-Apkopv Hx Patient Social History Alcohol Use: Denies Use Recreational Drug Use: No Smoking Status: Former Smoker Type Used: Cigarettes Former Smoker, Quit: Apr 15, 2013 Recent Foreign Travel: No Contact w/Someone Who Travel: No Recent Infectious Disease Expo: No Recent Hopitalizations: No Physical Abuse: No Sexual Abuse: No Mistreated: No Fear: No Immunizations Up To Date Date of Pneumonia Vaccine: Jan 16, 2014 Date of Influenza Vaccine: Jan 27, 2016 Seasonal Allergies Seasonal Allergies: No Past Medical History Surgeries: Yes (r carotid, NECK SURGERY) Appendectomy, Section, Gallbladder, Hysterectomy, Vascular Surgery Respiratory: Yes (uses inhaler due to smoking hx, suspect COPD) Currently Using CPAP: No Currently Using BIPAP: No Cardiac: Yes (heart angioplasty/rt endarectomh) Chronic Edema/Swelling, High Cholesterol, Hypertension, Peripheral Vascular Neurological: No 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 Sexually Transmitted Disease: No HIV/AIDS: No Genitourinary: No Gastrointestinal: Yes Gastroesophageal Reflux Musculoskeletal: Yes Arthritis Endocrine: No HEENT: Yes Cataract Loss of Vision: Bilateral Hearing Impairment: Denies Cancer: No Psychosocial: Yes Anxiety Integumentary: Yes Eczema Blood Disorders: No Adverse Reaction/Blood Tranf: No (N/A) Family Medical History Completed stroke 19 FATHER FH: COPD (chronic obstructive pulmonary disease) G8 SISTER, Onset:Unknown FH: skin cancer 19 FATHER, Onset:Unknown Myocardial infarction G8 SISTER, Onset:Unknown Review of Systems Time Seen by Provider: 06:40 Constitutional: Weakness, Malaise; No: Fever, Chills, Sweats, Other Eyes: No: Pain, Vision change, Conjunctivae inflammation, Eyelid inflammation, Other, Redness ENT: No: Ear pain, Ear discharge, Nose pain, Nose discharge, Nose congestion, Mouth pain, Mouth swelling, Throat pain, Throat swelling, Other Respiratory: No: Cough, Dry, Shortness of breath, SOB with excertion, Wheezing, Hemoptysis, Pleuritic Pain, Sputum, Wheezing, Other Cardiovascular: Lt Headedness; No: Chest Pain, Palpitations, Orthopnea, Paroxysmal Noc. Dyspnea, Edema, Other Gastrointestinal: Nausea; No: Vomiting, Abdominal Pain, Diarrhea, Constipation, Melena, Hematochezia, Other Genitourinary: No Dysuria, No Frequency, No Incontinence, No Hematuria, No Retention, No Other Sepsis Event Evaluation Height, Weight, BMI Height: 5'8.00" Weight: 220lbs. 0.0oz. 99.295276jt; 33.5 BMI Method:Stated Exam Exam Vital Signs Date Time Temp Pulse Resp B/P (MAP) Pulse Ox O2 Delivery O2 Flow Rate FiO2 12/05/18 04:00 97.0 73 18 170/81 (110) 95 Room Air 12/05/18 04:00 Room Air 12/05/18 01:00 73 12/05/18 00:00 Room Air 12/04/18 23:40 98.0 83 16 156/71 (99) 96 Room Air 12/04/18 21:00 73 15 165/74 (104) 99 Room Air 12/04/18 21:00 95 Room Air 12/04/18 20:30 76 15 156/69 (98) 97 Room Air 12/04/18 20:00 79 19 179/83 (115) 96 Room Air 12/04/18 20:00 Room Air 12/04/18 19:45 76 19 139/87 (104) 99 Room Air 12/04/18 19:30 68 18 157/67 (97) 99 Room Air 12/04/18 19:30 96 Room Air 12/04/18 19:05 96.9 72 16 177/80 (112) 95 Room Air 12/04/18 19:00 80 12/04/18 18:53 69 13 125/79 (94) 98 Room Air 12/04/18 15:06 71 150/66 (94) 75 148/76 (100) 82 114/80 (91) 12/04/18 14:45 97.3 74 15 162/96 (118) 96 Room Air I & O 12/05/18 07:00 Intake Total 1450 ml Balance 1450 ml Height & Weight Height: 5'8.00" Weight: 220lbs. 0.0oz. 99.213647dp; 33.5 BMI Method:Stated General Appearance: No Apparent Distress, WD/WN HEENT: PERRL/EOMI, TMs Normal, Normal ENT Inspection, Pharynx Normal, Moist Mucous Membranes Neck: Full Range of Motion, Normal Inspection, Non Tender, Supple Respiratory: Chest Non Tender, Lungs Clear, Normal Breath Sounds, No Accessory Muscle Use, No Respiratory Distress Cardiovascular: Regular Rate, Rhythm, No Edema, No Gallop, No JVD, No Murmur, Normal Peripheral Pulses Capillary Refill: Less Than 3 Seconds Extremity: Normal Capillary Refill, Normal Inspection, Non Tender, No Calf Tenderness, No Pedal Edema Neurologic/Psychiatric: Alert, Oriented x3, No Motor/Sensory Deficits, Normal 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
[2018-12-05 07:15] VITALS: BP 171/74
[2018-12-05 08:00] VITALS: BP 174/77
[2018-12-05] MEDS: amLODIPine 10 MG (NORVASC) TAB PO SCH (08:50)
[2018-12-05] MEDS: LOSARTAN 100 MG (COZAAR) TABLET PO SCH (08:50)
[2018-12-05] MEDS: ASPIRIN 81 MG CHEW (CHILDREN'S ASA) PO SCH (08:51)
--- NOTE | 2018-12-05 09:15 | Consultation-Cardiology ---
HPI-Cardiology Cardiology Consultation Date of Consultation 12/05/18 Date of Admission Time Seen by Provider: 09:13 Indication: Coronary artery disease HPI 72 years old lady with history of coronary artery disease, hypertension hyperlipidemia seen in my office last week, having generalized weakness, she was seen in the emergency room with hypokalemia. Currently she is hyponatremic, had mild confusion and loss of energy weakness and nausea. No vomiting. Had some chills, no fever. Home Medications & Allergies Allergies: Coded Allergies: No Known Drug Allergies (Unverified , 11/30/16) Home Medication List Reviewed: Yes IQY-Lhwxev-Kgyvyo Hx Patient Social History Marital Status: Employed/Student: retired Alcohol Use: Denies Use Recreational Drug Use: No Smoking Status: Former Smoker Type Used: Cigarettes Recent Foreign Travel: No Recent Infectious Disease Expo: No Recent Hopitalizations: No Immunizations Up To Date Date of Pneumonia Vaccine: Jan 16, 2014 Date of Influenza Vaccine: Jan 27, 2016 Past Medical History Discussed below Family Medical History Family History: Completed stroke 19 FATHER FH: COPD (chronic obstructive pulmonary disease) G8 SISTER, Onset:Unknown FH: skin cancer 19 FATHER, Onset:Unknown Myocardial infarction G8 SISTER, Onset:Unknown Review of Systems-General Review of Systems Constitutional: chills; No diaphoresis, No fever; malaise, weakness, other (Mild confusion) EENTM: see HPI; No ear discharge, No ear pain Respiratory: see HPI; No cough, No dyspnea on exertion, No hemoptysis, No orthopnea, No phlegm, No short of breath, No stridor, No wheezing, No other Cardiovascular: see HPI; No chest pain, No edema Gastrointestinal: see HPI; No abdominal pain, No constipation, No diarrhea; nausea Genitourinary: no symptoms reported, see HPI; No discharge, No dysuria Musculoskeletal: see HPI; No back pain, No joint pain; muscle weakness Skin: see HPI; No pruritus, No rash Psychiatric/Neurological: Denies Headache, Denies Numbness, Denies Paresthesia; Weakness, Other (Mild confusion) Reviewed Test Results Reviewed Test Results Lab Laboratory Tests Test 12/04/18 14:56 12/04/18 17:08 12/05/18 03:50 Range/Units White Blood Count 5.7 6.1 4.3-11.0 10^3/uL Red Blood Count 4.57 4.14 L 4.35-5.85 10^6/uL Hemoglobin 13.5 12.2 11.5-16.0 G/DL Hematocrit 39 36 35-52 % Mean Corpuscular Volume 86 87 80-99 FL Mean Corpuscular Hemoglobin 30 29 25-34 PG Mean Corpuscular Hemoglobin Concent 34 34 32-36 G/DL Red Cell Distribution Width 13.6 14.1 10.0-14.5 % Platelet Count 322 294 130-400 10^3/uL Mean Platelet Volume 9.3 8.9 7.4-10.4 FL Neutrophils (%) (Auto) 53 46 42-75 % Lymphocytes (%) (Auto) 31 38 12-44 % Monocytes (%) (Auto) 13 H 12 0-12 % Eosinophils (%) (Auto) 2 3 0-10 % Basophils (%) (Auto) 1 1 0-10 % Neutrophils # (Auto) 3.0 2.8 1.8-7.8 X 10^3 Lymphocytes # (Auto) 1.8 2.3 1.0-4.0 X 10^3 Monocytes # (Auto) 0.7 0.7 0.0-1.0 X 10^3 Eosinophils # (Auto) 0.1 0.2 0.0-0.3 10^3/uL Basophils # (Auto) 0.1 0.1 0.0-0.1 10^3/uL Sodium Level 128 L 130 L 135-145 MMOL/L Potassium Level 4.3 3.6 3.6-5.0 MMOL/L Chloride Level 88 L 97 L 98-107 MMOL/L Carbon Dioxide Level 29 25 21-32 MMOL/L Anion Gap 11 8 5-14 MMOL/L Blood Urea Nitrogen 10 8 7-18 MG/DL Creatinine 0.66 0.59 L 0.60-1.30 MG/DL Estimat Glomerular Filtration Rate > 60 > 60 BUN/Creatinine Ratio 15 14 Glucose Level 113 H 107 H 70-105 MG/DL Calcium Level 9.5 8.6 8.5-10.1 MG/DL Corrected Calcium 9.3 8.5-10.1 MG/DL Magnesium Level 2.0 1.8 1.6-2.4 MG/DL Total Bilirubin 0.5 0.1-1.0 MG/DL Aspartate Amino Transf (AST/SGOT) 20 5-34 U/L Alanine Aminotransferase (ALT/SGPT) 14 0-55 U/L Alkaline Phosphatase 78 40-136 U/L Troponin I < 0.028 <0.028 NG/ML C-Reactive Protein High Sensitivity 0.32 0.00-0.50 MG/DL B-Type Natriuretic Peptide 67.9 <100.0 PG/ML Total Protein 7.0 6.4-8.2 GM/DL Albumin 4.2 3.2-4.5 GM/DL Urine Color YELLOW Urine Clarity CLEAR Urine pH 8 5-9 Urine Specific [place] 1.010 L 1.016-1.022 Urine Protein NEGATIVE NEGATIVE Urine Glucose (UA) NEGATIVE NEGATIVE Urine Ketones NEGATIVE NEGATIVE Urine Nitrite NEGATIVE NEGATIVE Urine Bilirubin NEGATIVE NEGATIVE Urine Urobilinogen NORMAL NORMAL MG/DL Urine Leukocyte Esterase NEGATIVE NEGATIVE Urine RBC (Auto) NEGATIVE NEGATIVE Urine RBC NONE /HPF Urine WBC NONE /HPF Urine Squamous Epithelial Cells 5-10 /HPF Urine Crystals NONE /LPF Urine Bacteria FEW H /HPF Urine Casts NONE /LPF Urine Mucus NEGATIVE /LPF Urine Culture Indicated NO Phosphorus Level 3.0 2.3-4.7 MG/DL Thyroid Stimulating Hormone (TSH) 0.72 0.35-4.94 UIU/ML Physical Exam Physical Exam Vital Signs Vital Signs - First Documented 12/04/18 14:45 Temp 97.3 Pulse 74 Resp 15 B/P (MAP) 162/96 (118) Pulse Ox 96 O2 Delivery Room Air Capillary Refill : Less Than 3 Seconds Height, Weight, BMI Height: 5'8.00" Weight: 220lbs. 0.0oz. 99.354376vs; 33.5 BMI Method:Stated General Appearance: No Apparent Distress, WD/WN Eyes: Bilateral Eye Normal Inspection, Bilateral Eye PERRL, Bilateral Eye EOMI HEENT: PERRL/EOMI, TMs Normal, Normal ENT Inspection, Pharynx Normal, Moist Mucous Membranes Neck: Full Range of Motion, Normal Inspection, Non Tender, Supple Respiratory: Chest Non Tender, Lungs Clear, Normal Breath Sounds, No Accessory Muscle Use, No Respiratory Distress Cardiovascular: Regular Rate, Rhythm, No Edema, No Gallop, No JVD, No Murmur, Normal Peripheral Pulses Gastrointestinal: Normal Bowel Sounds, No Organomegaly, Non Tender, Soft Extremity: Normal Capillary Refill, Normal Inspection, Non Tender, No Calf Tenderness, No Pedal Edema Neurologic/Psychiatric: Alert, Oriented x3, No Motor/Sensory Deficits, Normal 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 Hyponatremia. Managed by primary care team. Coronary artery disease, had a cardiac catheterization in February 2013, repeat cardiac catheterization was done in April 2016 showing calcified coronary system with 40 percent proximal LAD, mid LAD, 40-50 percent mid RCA, heavily calcified artery. Slightly elevated liver ventricular end-diastolic pressure. Calcification noted at the origin of the right carotid artery, currently asymptomatic. Most recent stress test June 2018 revealed no ischemia or infarct. Continue to monitor. Hypertension, continue to monitor blood pressure Hyperlipidemia, evaluate lipid profile History of mild LVH. Dilated cardiomyopathy, posterior wall hypokinesia and evidence of left ventricular diastolic dysfunction, improved, the last echo was done in March 2018 showing normal left ventricle size with ejection fraction 55-65 percent, moderately dilated left atrium, moderate mitral regurgitation with PA pressure 35 mmHg. I will evaluate 2-D echocardiogram Carotid artery stenosis-Moderate carotid stenosis on the left side, mild on the right, history of right carotid endarterectomy done by Dr. Maximiliano Cardozo, followed and managed by heart and vascular care. Continue to monitor. Ex-Tobaccoism COPD, managed by Dr. Amelia Martines family history of coronary artery disease, sister had myocardial infarction in her 40s. Clinical Quality Measures DVT/VTE Risk/Contraindication: Risk Factor Score Per Nursin RFS Level Per Nursing on Admit: 3=High YANCY [facility] MD Dec 05, 2018 09:15
[2018-12-05 12:00] VITALS: BP 164/69
--- NOTE | 2018-12-05 12:06 | Physical Therapy Evaluation ---
PT Evaluation-General Medical Diagnosis Admission Date Dec 04, 2018 at 18:00 Medical Diagnosis: weakness Onset Date: Dec 03, 2018 Therapy Diagnosis Therapy Diagnosis: weakness Height/Weight Height (Feet): 5 Height (Inches): 8.00 Weight (Pounds): 220 Weight (Ounces): 0.0 Precautions Precautions/Isolations: Fall Prevention, Standard Precautions Weight Bear Status Right Lower Extremity: Right Full Weight Bearing Left Lower Extremity: Left Full Weight Bearing Referral Reason for Referral: Evaluation/Treatment Social History Home: [facility] Current Living Status: Spouse Prior/Core FIM Prior Level of Function Therapy Code Descriptions/Definitions Functional [place] Measure: 0=Not Assessed/NA 4=Minimal Assistance 1=Total Assistance 5=Supervision or Setup 2=Maximal Assistance 6=Modified [place] 3=Moderate Assistance 7=Complete [place] Therapy Quality Codes: 6 Independent with activity with or without an assistive device 5 Patient requires set up or clean up by helper. Patient completes activity by themselves 4 Supervision or touching assist (CGA). [place] provide cues , steadying a ssist 3 The helper provides less than half the effort to complete the activity 2 The helper provides more than half the effort to complete the activity 1 Dependent. The helper does all the effort to complete an activity 7 Patient refused to complete or attempt activity 9 The patient did not perform the activity before the current illness or injury 88 Not attempted due to Medical conditions or safety concerns Functional Abilities and Goals: Independent: Patient completed the activities by him/herself, with or without an assistive device, with no assistance from a helper. Needed Some Help: Patient needed partial assistance from another person to complete activities. Dependent: A helper completed the activities for the patient. Unknown: Not Applicable: Bed Mobility: 7 Transfers (B,C,W/C) (FIM): 7 Gait: 7 Stairs: 7 Indoor Mobility (Ambulation): Independent Stairs: Independent Prior Devices Use: None PT Evaluation-Current Subjective States that her potassium levels are off and she is weak but she is ready to go home. Pain Numeric Pain Scale: 0-No Pain Pt/Family Goals go home Objective Patient Orientation: Person, Place, Time, Situation ROM/Strength ROM Lower Extremities WFL Strength Lower Extremities 4+/5 Neuromuscular (Tone, Coordination, Reflexes) intact Transfers Therapy Code Descriptions/Definitions Functional [place] Measure: 0=Not Assessed/NA 4=Minimal Assistance 1=Total Assistance 5=Supervision or Setup 2=Maximal Assistance 6=Modified [place] 3=Moderate Assistance 7=Complete [place] Transfers (B, C, W/C) (FIM): 6 Scootin Rollin Supine to/from Sit: 6 Gait Mode of Locomotion: Walk Anticipated Mode of Locomotion: Walk Gait (FIM): 5 Distance (FIM): 3=150 ft Distance: 150' Gait Level of Assist: 5 Gait Persons Needed: 1 Gait Assistive Device: FWW Balance Sitting Static: Normal Sitting Dynamic: Normal Standing Static: Fair Standing Dynamic: Fair Assessment/Needs 72 y.o. female with a diagnosis of weakness. The patient has functional mobility limitations secondary to weakness and gait instability. She should do well with skilled therapy and be able to return to her PLOF. Rehab Potential: Good PT Short Term Goals Short Term Goals Time Frame: Dec 08, 2018 Transfers (B,C,W/C) (FIM): 7 Gait (FIM): 6 Distance (FIM): 3=150 ft Gait Distance Comment: 300' Gait Level of Assist: 6 Gait Assistive Device: FWW PT Care Home Goals Care Home Goals PT Care Home Goals Time Frame: Dec 11, 2018 Transfers (B,C,W/C) (FIM): 7 Gait (FIM): 7 Gait distance (FIM): 3=150 ft Distance: 500' Gait Level of Assist: 7 Gait Assistive Device: None PT Plan Problem List Problem List: Activity Tolerance, Functional Strength, Safety, Balance, Gait Treatment/Plan Treatment Plan: Continue Plan of Care Treatment Plan: Functional Activity Giorgio, Functional Strength, Gait, Safety, Therapeutic Exercise Treatment Duration: Dec 11, 2018 Frequency: 11 times per week Time/GCodes Time In: 1145 Time Out: 1200 Total Billed Treatment Time: 15 Total Billed Treatment 1, ELIAZAR ledezma x 15' ANNABELLE BROWN PT Dec 05, 2018 12:06
--- NOTE | 2018-12-05 14:13 | History & Physical-Hospitalist ---
History of Present Illness HPI/Chief Complaint Lani Lamar is a 72-year-old female with past medical history of hypertension, hyperlipidemia, coronary artery disease, carotid stenosis, COPD, who presented with fatigue and dizziness. She has been receiving potassium replacement for hypokalemia as an outpatient. She reports nausea but no vomiting. She reports chills but no fevers. She denies any chest pain or dyspnea. She denies any abdominal pain. She denies any focal weakness. Source: patient Exam Limitations: no limitations Date Seen 12/05/18 Time Seen by a Provider: 09:15 Attending Physician Rylee Ca MD PCP Crow Maldonado MD Referring Physician Date of Admission Dec 04, 2018 at 18:00 Home Medications & Allergies Home Medications Reviewed patient Home Medication Reconciliation performed by pharmacy medication reconciliations renal technician and/or nursing. Patients Allergies have been reviewed. Allergies Allergies Coded Allergies No Known Drug Allergies (Unverified11/30/16) Past Ltugqbp-Evojes-Gmctuo Hx Past Med/Social Hx: Reviewed Nursing Past Med/Soc Hx Patient Social History Marrital Status: Employed/Student: retired Alcohol Use: Denies Use Recreational Drug Use: No Smoking Status: Former Smoker Former Smoker, Quit: Apr 15, 2013 Type Used: Cigarettes Recent Foreign Travel: No Contact w/other who traveled: No Recent Hopitalizations: No Recent Infectious Disease Expo: No Immunizations Up To Date Date of Pneumonia Vaccine: Jan 16, 2014 Date of Influenza Vaccine: Jan 27, 2016 Seasonal Allergies Seasonal Allergies: No Past Medical History Surgeries: Appendectomy, Section, Gallbladder, Hysterectomy, Vascular Surgery neck surgery Currently Using CPAP: No Currently Using BIPAP: No Cardiac: Chronic Edema/Swelling, High Cholesterol, Hypertension, Peripheral Vascular Reproductive: No Sexually Transmitted Disease: No HIV/AIDS: No Hysterectomy Gastrointestinal: Gastroesophageal Reflux Musculoskeletal: Arthritis HEENT: Cataract Loss of Vision: Bilateral Hearing Impairment: Denies Psychosocial: Anxiety Skin/Integumentary: Eczema History of Blood Disorders: No Adverse Reaction to Blood No: No (N/A) Family History Completed stroke 19 FATHER FH: COPD (chronic obstructive pulmonary disease) G8 SISTER, Onset:Unknown FH: skin cancer 19 FATHER, Onset:Unknown Myocardial infarction G8 SISTER, Onset:Unknown Review of Systems Constitutional: see HPI Physical Exam Physical Exam Vital Signs Vital Signs - First Documented 12/04/18 14:45 Temp 97.3 Pulse 74 Resp 15 B/P (MAP) 162/96 (118) Pulse Ox 96 O2 Delivery Room Air Capillary Refill : Less Than 3 Seconds Height, Weight, BMI Height: 5'8.00" Weight: 220lbs. 0.0oz. 99.400193xp; 33.5 BMI Method:Stated General Appearance: No Apparent Distress, WD/WN, Other (Sitting in bedside chair) HEENT: PERRL/EOMI, Pharynx Normal Neck: Normal Inspection, Supple Respiratory: Lungs Clear, Normal Breath Sounds, No Respiratory Distress Cardiovascular: Regular Rate, Rhythm, No Edema, No Murmur Gastrointestinal: Normal Bowel Sounds, Non Tender, Soft Extremity: Normal Inspection, Non Tender Neurologic/Psychiatric: Alert, Oriented x3 Skin: Normal Color, Warm/Dry Lymphatic: No Adenopathy Results Results/Procedures Labs Laboratory Tests 12/04/18 14:56 12/05/18 03:50 Patient resulted labs reviewed. Imaging: Reviewed Imaging Report Assessment/Plan Admission Diagnosis Weakness Admission Status: Inpatient Order (span 2 midnights) Reason for Inpatient Admission: Hyponatremia Assessment and Plan Weakness Hyponatremia Hypokalemia, resolved Initial lab workup relatively unremarkable Mild hyponatremia Normal potassium No infectious findings Hyponatremia likely due to hydrochlorothiazide IV fluids started on admission, and discontinue this morning Zofran as needed for nausea and vomiting Coronary artery disease Heart failure with preserved ejection fraction Cardiology consulted, appreciate recommendations TTE performed and showed grade 2 diastolic dysfunction Hyperlipidemia Continue statin Hypertension Continue home meds Anxiety Continue Xanax as needed Diagnosis/Problems Diagnosis/Problems (1) Weakness Status: Acute (2) Hyperlipidemia Status: Chronic (3) COPD (chronic obstructive pulmonary disease) Status: Chronic (4) CAD (coronary artery disease) Status: Chronic (5) (HFpEF) heart failure with preserved ejection fraction Status: Chronic (6) Essential (primary) hypertension Status: Chronic (7) Hyponatremia syndrome Status: Acute Clinical Quality Measures DVT/VTE Risk/Contraindication: Risk Factor Score Per Nursin RFS Level Per Nursing on Admit: 3=High SHERRY MAHER MD Dec 05, 2018 14:13
[2018-12-05 15:45] VITALS: BP 164/78
[2018-12-05 19:39] VITALS: BP 162/86
[2018-12-05] MEDS: ATORVASTATIN 20 MG (LIPITOR) TABLET PO SCH (20:16)
[2018-12-05] MEDS: ALPRAZolam 0.5 MG (XANAX) TAB PO PRN (20:16)
[2018-12-06 01:17] VITALS: BP 167/83
[2018-12-06 04:00] VITALS: BP 187/93
[2018-12-06 04:07] LABS: BASOPHILS # (AUTO) 0.1 10^3/uL (0.0-0.1); BASOPHILS % (AUTO) 1 % (0-10); EOSINOPHILS # (AUTO) 0.2 10^3/uL (0.0-0.3); EOSINOPHILS % (AUTO) 3 % (0-10); HEMATOCRIT 37 % (35-52); HEMOGLOBIN 12.4 G/DL (11.5-16.0); LYMPHOCYTES # (AUTO) 1.4 X 10^3 (1.0-4.0); LYMPHOCYTES % (AUTO) 25 % (12-44); MEAN CORPUSCULAR HEMOGLOBIN 30 PG (25-34); MEAN CORPUSCULAR HGB CONC 33 G/DL (32-36); MEAN CORPUSCULAR VOLUME 89 FL (80-99); MEAN PLATELET VOLUME 8.9 FL (7.4-10.4); MONOCYTES # (AUTO) 0.6 X 10^3 (0.0-1.0); MONOCYTES % (AUTO) 11 % (0-12); NEUTROPHILS # (AUTO) 3.5 X 10^3 (1.8-7.8); NEUTROPHILS % (AUTO) 61 % (42-75); PLATELET COUNT 287 10^3/uL (130-400); RED CELL DISTRIBUTION WIDTH 14.1 % (10.0-14.5); WHITE BLOOD COUNT 5.7 10^3/uL (4.3-11.0)
[2018-12-06 04:28] LABS: BUN/CREATININE RATIO 18; CALCIUM 9.1 MG/DL (8.5-10.1); CARBON DIOXIDE 22 MMOL/L (21-32); CHLORIDE 103 MMOL/L (98-107); CREATININE SERUM 0.61 MG/DL (0.60-1.30); GFR ESTIMATED > 60; GLUCOSE 118 MG/DL (70-105); PHOSPHORUS 3.2 MG/DL (2.3-4.7); POTASSIUM 4.7 MMOL/L (3.6-5.0); SODIUM 134 MMOL/L (135-145)
--- NOTE | 2018-12-06 05:07 | Pulmonary Progress Note ---
Subjective Time Seen by a Provider: 06:43 Subjective/Events-last exam No complications noted. Sepsis Event Evaluation Height, Weight, BMI Height: 5'8.00" Weight: 220lbs. 0.0oz. 99.096127va; 33.5 BMI Method:Stated Exam Exam Vital Signs Date Time Temp Pulse Resp B/P (MAP) Pulse Ox O2 Delivery O2 Flow Rate FiO2 12/06/18 04:00 Room Air 12/06/18 01:17 98.0 82 20 167/83 (111) 94 Room Air 12/06/18 01:00 86 12/06/18 00:00 Room Air 12/05/18 21:00 95 Room Air 12/05/18 20:00 Room Air 12/05/18 19:39 97.2 84 28 162/86 (111) 95 Room Air 12/05/18 19:00 95 12/05/18 16:00 Room Air 12/05/18 15:45 97.5 78 24 164/78 (106) 95 Room Air 12/05/18 13:00 75 12/05/18 12:00 Room Air 12/05/18 12:00 98.2 75 18 164/69 (100) 98 Room Air 12/05/18 09:00 95 Room Air 12/05/18 08:00 Room Air 12/05/18 08:00 97.4 67 18 174/77 (109) 96 Room Air 12/05/18 07:15 82 15 171/74 (106) Room Air 12/05/18 07:00 77 I & O 12/06/18 07:00 Intake Total 2640 ml Balance 2640 ml Height & Weight Height: 5'8.00" Weight: 220lbs. 0.0oz. 99.548145lc; 33.5 BMI Method:Stated General Appearance: No Apparent Distress, WD/WN, Other (Sitting in bedside chair) HEENT: PERRL/EOMI, Pharynx Normal Neck: Normal Inspection, Supple Respiratory: Lungs Clear, Normal Breath Sounds, No Respiratory Distress Cardiovascular: Regular Rate, Rhythm, No Edema, No Murmur Capillary Refill: Less Than 3 Seconds Extremity: Normal Inspection, Non Tender Neurologic/Psychiatric: Alert, Oriented x3 Skin: Normal Color, Warm/Dry Lymphatic: No Adenopathy Results Lab Laboratory Tests 12/04/18 14:56 12/05/18 03:50 9/3/19 04:00 Assessment/Plan Assessment/Plan Hyponatremia- Improved -Monitor -Probably secondary to lasix, HCTZ lethargic, mild confusion -Pt takes xanax, and Skelaxin at home Hypertension -Monitor Obesity probable GISELA -Out pt testing I am going to sign off please call with any questions or concerns. MP GARCIA DO Dec 06, 2018 05:07
--- NOTE | 2018-12-06 07:40 | Cardiology Progress Note ---
Subjective Date Seen by Provider: Dec 06, 2018 Time Seen by Provider: 07:38 Subjective/Events-last exam Patient is laying down in bed, feeling better, asking to go home Review of Systems General: No Chills, No Night Sweats, No Fatigue, No Malaise, No Appetite, No Other HEENT: No Head Aches, No Visual Changes, No Eye Pain, No Ear Pain, No Dysphasia, No Sinus Congestion, No Post Nasal Drip, No Sore Throat, No Other Pulmonary: No Dyspnea, No Cough, No Pleuritic Chest Pain, No Other Cardiovascular: No: Chest Pain, Palpitations, Orthopnea, Paroxysmal Noc. Dyspnea, Edema, Lt Headedness, Other Objective-Cardiology Exam Last Set of Vital Signs Vital Signs 12/06/18 12/06/18 12/06/18 01:17 04:00 07:00 Temp 98.0 Pulse 94 Resp 14 B/P (MAP) 187/93 (124) Pulse Ox 94 O2 Delivery Room Air Capillary Refill : Less Than 3 Seconds I&O Intake and Output 12/06/18 00:00 Intake Total 3840 ml Balance 3840 ml Intake Oral 1300 ml IV Total 2540 ml # Voids 11 # Bowel Movements 1 General: Alert, Oriented X3, Cooperative HEENT: Atraumatic, PERRLA Neck: Supple, No JVD, No Thyromegaly Lungs: Clear to Auscultation, Normal Air Movement Heart: Regular Rate, Normal S1, Normal S2, No Murmurs Abdomen: Normal Bowel Sounds, Soft, No Tenderness, No Hepatosplenomegaly, No Masses Extremities: No Clubbing, No Cyanosis, No Edema, Normal Pulses, No Tenderness/Swelling Skin: No Rashes, No Breakdown, No Significant Lesion Neuro: Normal Gait, Normal Speech, Strength at 5/5 X4 Ext, Normal Tone, Sensation Intact Psych/Mental Status: Mental Status NL, Mood NL Results Lab Laboratory Tests 12/06/18 04:00 A/P-Cardiology Admission Diagnosis Generalized weakness Hyponatremia Coronary artery disease Hypertension Assessment/Plan Generalized weakness, fatigue and loss of energy. Reporting improvement and asking to go home. Hyponatremia, better today. Coronary artery disease, had a cardiac catheterization in February 2013, repeat cardiac catheterization was done in April 2016 showing calcified coronary system with 40 percent proximal LAD, mid LAD, 40-50 percent mid RCA, heavily calcified artery. Slightly elevated liver ventricular end-diastolic pressure. Calcification noted at the origin of the right carotid artery, currently asymptomatic. Most recent stress test June 2018 revealed no ischemia or infarct. Continue to monitor. Hypertension, continue to monitor blood pressure Hyperlipidemia, evaluate lipid profile History of mild LVH. Dilated cardiomyopathy, posterior wall hypokinesia and evidence of left ventricular diastolic dysfunction, improved, the last echo was done in March 2018 showing normal left ventricle size with ejection fraction 55-65 percent, moderately dilated left atrium, moderate mitral regurgitation with PA pressure 35 mmHg. I will evaluate 2-D echocardiogram Carotid artery stenosis-Moderate carotid stenosis on the left side, mild on the right, history of right carotid endarterectomy done by Dr. Maximiliano Cardozo, followed and managed by heart and vascular care. Continue to monitor. Ex-Tobaccoism COPD, managed by Dr. Amelia Martines family history of coronary artery disease, sister had myocardial infarction in her 40s. Patient is feeling better. Asking to go home, okay for discharge from cardiology standpoint Clinical Quality Measures DVT/VTE Risk/Contraindication: Risk Factor Score Per Nursin RFS Level Per Nursing on Admit: 3=High YANCY MAC MD Dec 06, 2018 07:40
[2018-12-06 08:00] VITALS: BP 173/76
[2018-12-06] MEDS: amLODIPine 10 MG (NORVASC) TAB PO SCH (08:35)
[2018-12-06] MEDS: ASPIRIN 81 MG CHEW (CHILDREN'S ASA) PO SCH (08:35)
[2018-12-06] MEDS: LOSARTAN 100 MG (COZAAR) TABLET PO SCH (08:35)
[2018-12-06 08:45] VITALS: BP 173/76
[2018-12-06] MEDS ORDERED: LOSA100T57 PO (09:57)
--- NOTE | 2018-12-06 09:59 | Discharge Inst-Simple/Standard ---
Discharge Inst-Standard Discharge Medications New, Converted or Re-Newed RX: Transmitted to Pharmacy Patient Instructions/Follow Up Plan of Care/Instructions/FU: Take medications as prescribed. Discontinue HCTZ. Follow up with Dr. Maldonado in 1-2 weeks. Activity as Tolerated: Yes Discharge Diet: No Restrictions Return to The Hospital For: fever, shortness of breath, chest pain, or if you feel like you are getting worse SHERRY MAHER MD Dec 06, 2018 09:59
--- NOTE | 2018-12-06 14:47 | Discharge Summary ---
Diagnosis/Chief Complaint Date of Admission Dec 04, 2018 at 18:00 Date of Discharge Dec 06, 2018 at 10:40 Admission Diagnosis Weakness Primary Care Crow Maldonado MD Discharge Diagnosis Weakness (1) Weakness Status: Acute (2) Hyperlipidemia Status: Chronic (3) COPD (chronic obstructive pulmonary disease) Status: Chronic (4) CAD (coronary artery disease) Status: Chronic (5) (HFpEF) heart failure with preserved ejection fraction Status: Chronic (6) Essential (primary) hypertension Status: Chronic (7) Hyponatremia syndrome Status: Resolved Discharge Summary Discharge Physical Exam Allergies: Coded Allergies: No Known Drug Allergies (Unverified , 11/30/16) Vitals & I&Os Vital Signs Date Time Temp Pulse Resp B/P (MAP) Pulse Ox O2 Delivery O2 Flow Rate FiO2 12/06/18 10:40 12/06/18 08:45 92 14 Room Air 12/06/18 08:00 97 12/06/18 07:00 98.0 General Appearance: No Apparent Distress, WD/WN HEENT: PERRL/EOMI, Pharynx Normal Respiratory: Lungs Clear, Normal Breath Sounds, No Respiratory Distress Cardiovascular: Regular Rate, Rhythm, No Edema, No Murmur Gastrointestinal: Normal Bowel Sounds, Non Tender, Soft Extremity: Normal Inspection, Non Tender, No Pedal Edema Skin: Normal Color, Warm/Dry Neurologic/Psychiatric: Alert; No Disoriented Hospital Course Lani Lamar is a 72-year-old female with past medical history of hypertension, hyperlipidemia, who presented with weakness. She had been being treated with outpatient or hypokalemia with potassium supplementation. She reports that she has been feeling dizzy and weak. Workup revealed a mild hyponatremia. Her hydrochlorothiazide was discontinued on discharge. Her symptoms resolved and she was discharged home Labs (last 24 hrs) Laboratory Tests 12/06/18 04:00: White Blood Count 5.7, Red Blood Count 4.19L, Hemoglobin 12.4, Hematocrit 37, Mean Corpuscular Volume 89, Mean Corpuscular Hemoglobin 30, Mean Corpuscular Hemoglobin Concent 33, Red Cell Distribution Width 14.1, Platelet Count 287, Mean Platelet Volume 8.9, Neutrophils (%) (Auto) 61, Lymphocytes (%) (Auto) 25, Monocytes (%) (Auto) 11, Eosinophils (%) (Auto) 3, Basophils (%) (Auto) 1, Neutrophils # (Auto) 3.5, Lymphocytes # (Auto) 1.4, Monocytes # (Auto) 0.6, Eosinophils # (Auto) 0.2, Basophils # (Auto) 0.1, Sodium Level 134L, Potassium Level 4.7, Chloride Level 103, Carbon Dioxide Level 22, Anion Gap 9, Blood Urea Nitrogen 11, Creatinine 0.61, Estimat Glomerular Filtration Rate > 60, BUN/Creatinine Ratio 18, Glucose Level 118H, Calcium Level 9.1, Phosphorus Level 3.2, Magnesium Level 2.0 Patient resulted labs reviewed. Imaging: Reviewed Imaging Report Discussion & Recommendations Discharge Planning: <30 minutes discharge planning Discharge Home Medications: Active Scripts Active Losartan Potassium 100 Mg Tablet 100 Mg PO DAILY 90 Days Ondansetron Odt (Ondansetron) 4 Mg Tab.rapdis 4 Mg PO Q6H PRN K-Tab ER (Potassium Chloride) 10 Meq Tablet.er 10 Meq PO DAILY Reported Metanx Capsule (Levomefolate/B6/B12/Algal Oil) 1 Each Capsule 1 Each PO BID Hydrocortisone (Hydrocortisone Acetate) 28 Gm Oint...g. 1 Gm TP DAILY PRN Eucerin Creme (Mineral Oil/Petrolatum,White) 120 Gm Cream..g. 1 Gm TP DAILY PRN Clobetasol Emollient 0.05% Crm (Clobetasol Propionate/Emoll) 15 Gm Cream..g. 1 Gm TP DAILY PRN Centrum Silver Women Tablet (Multivits-Min/Iron/FA/Lutein) 1 Each Tablet 1 Each PO DAILY Biotin 5,000 Mcg Tab.rapdis 5,000 Mcg PO DAILY Aspir 81 (Aspirin) 81 Mg Tablet.dr 81 Mg PO DAILY Xanax (Alprazolam) 0.5 Mg Tablet 0.5 Mg PO BID PRN NEEDED FOR ANXIETY Folic Acid 0.4 Mg Tablet 0.4 Mg PO DAILY Skelaxin (Metaxalone) 800 Mg Tablet 800 Mg PO QID Fish Oil 1,000 Mg Softgel ([place]-3 Fatty Acids/Fish Oil) 1 Each Capsule 1,000 Mg PO DAILY Tylenol (Acetaminophen) 500 Mg Tablet 1,000 Mg PO Q8H PRN TAKES 2 (500MG) TABLETS NEEDED FOR PAIN Calcium 600 + D Caplet (Calcium Carbonate/Vitamin D3) 1 Each Tablet 1 Tab PO DAILY Spiriva (Tiotropium Gates) 1 Inh Aerp 1 Cap IH DAILY Caduet 10 Mg-20 Mg Tablet (Amlodipine/Atorvast Brian) 1 Each Tablet 1 Tab PO HS 10-20MG TABLET Tricor (Fenofibrate) 48 Mg Tab 48 Mg PO DAILY Furosemide 40 Mg Tablet 40 Mg PO DAILY Tenormin Tablet (Atenolol) 50 Mg Tab 50 Mg PO DAILY Condition at discharge Stable Instructions to patient/family Please see electronic discharge instructions given to patient. Clinical Quality Measures DVT/VTE Risk/Contraindication: Risk Factor Score Per Nursin RFS Level Per Nursing on Admit: 3=High SHERRY MAHER MD Dec 06, 2018 14:47
== END 2018-12-06 10:40 | disposition home or self-care (01) | DRG 641 ==
LOC: EDUNIT# 14:38 → ER 14:40 → ICU 18:00
PROVIDERS: ADMIT Family Medicine; ATTEND Family Medicine
DX: E87.1 Hypo-osmolality and hyponatremia (principal); I11.0 Hypertensive heart disease with heart failure; I50.32 Chronic diastolic (congestive) heart failure; I42.0 Dilated cardiomyopathy; E78.5 Hyperlipidemia, unspecified; I25.10 Atherosclerotic heart disease of native coronary artery without angina pectoris; J44.9 Chronic obstructive pulmonary disease, unspecified; E87.6 Hypokalemia; I65.23 Occlusion and stenosis of bilateral carotid arteries; E78.00 Pure hypercholesterolemia, unspecified; I73.9 Peripheral vascular disease, unspecified; K21.9 Gastro-esophageal reflux disease without esophagitis; M19.91 Primary osteoarthritis, unspecified site; H26.9 Unspecified cataract; F41.9 Anxiety disorder, unspecified; L30.9 Dermatitis, unspecified; R53.1 Weakness; G47.33 Obstructive sleep apnea (adult) (pediatric); E66.9 Obesity, unspecified; I34.0 Nonrheumatic mitral (valve) insufficiency; I95.1 Orthostatic hypotension; T50.2X5A Adverse effect of carbonic-anhydrase inhibitors, benzothiadiazides and other diuretics, initial encounter; Z82.49 Family history of ischemic heart disease and other diseases of the circulatory system; Z98.61 Coronary angioplasty status; Z68.33 Body mass index [BMI] 33.0-33.9, adult; Z87.891 Personal history of nicotine dependence
CPT/HCPCS: 36415; 71045; 80048; 80053; 81000; 83735; 83880; 84100; 84443; 84484; 85025; 86141; 93005; 93306

== ENCOUNTER → 2018-12-20 | Outpatient (CLI) | payer MEDICARE, OTHER ==
[~2018-12-20] MED LIST changes: +LOSA100T57 PO
--- NOTE | 2018-12-20 15:30 | Diagnostic Imaging Report ---
PROCEDURE: CT head without contrast. TECHNIQUE: Multiple contiguous axial images were obtained through the brain without the use of intravenous contrast. Auto Exposure Controls were utilized during the CT exam to meet ALARA standards for radiation dose reduction. INDICATION: Headaches and dizziness. COMPARISON: Correlation is made with prior head CT from 11/12/2017. FINDINGS: Ventricles and sulci are stable in appearance. Moderate periventricular hypodensity is again noted consistent with chronic microvascular ischemia. No sulcal effacement or midline shift is detected. No acute intra-axial or extra-axial hemorrhage is detected. Cisterns are patent. Visualized paranasal sinuses demonstrate some opacification of the right half of the sphenoid sinus. IMPRESSION: 1. No acute intracranial process is detected. 2. Sphenoid sinus mucosal disease. Dictated by: Dictated on workstation # [id number]
== END ==
LOC: RAD 15:05
PROVIDERS: ATTEND Internal Medicine
DX: J32.8 Other chronic sinusitis (principal); E87.1 Hypo-osmolality and hyponatremia; R41.0 Disorientation, unspecified; R51 Headache
CPT/HCPCS: 70450

== ENCOUNTER → 2021-02-18 | Outpatient (CLI) | payer MEDICARE, OTHER ==
[~2021-02-18] MED LIST changes: -ACET-2469 PO; +ACET-3075 PO
--- NOTE | 2021-02-18 18:16 | Diagnostic Imaging Report ---
INDICATION: Routine screening. COMPARISON is made with prior mammograms from 03/31/2018 and 03/30/2017. 2-D and 3-D bilateral screening mammography was performed with CAD. Scattered fibroglandular densities are identified bilaterally. There are scattered benign calcifications throughout both breasts. Both the right and left MLO views show some motion artifact. No mass or malignant-appearing microcalcifications are seen. Axillae are unremarkable. IMPRESSION: BI-RADS Category 2 No mammographic features suspicious for malignancy are identified. ACR BI-RADS Category 2: Benign findings. Result letter will be mailed to the patient. Note: At least 10% of breast cancer is not imaged by mammography. Dictated by: Dictated on workstation # [id number]
== END ==
LOC: RAD 12:30
PROVIDERS: ATTEND Physician Assistant
DX: Z12.31 Encounter for screening mammogram for malignant neoplasm of breast (principal)
CPT/HCPCS: 77063; 77067

== ENCOUNTER → 2021-11-26 | Outpatient (CLI) | payer MEDICARE, OTHER ==
[~2021-11-26] MED LIST changes: +CATHETER FLUSH 10 ML SYR IV PRN; +HOLD METFORMIN - RECEIVED CONTRAST 20 ML VIAL IV SCH; +IOHEXOL 350 MG/ML 100 ML (OMNIPAQUE 350) VIAL IV ONE; +NS 100 ML (IVPB) BAG IV ONE
[2021-11-26 13:46] LABS: CREATININE SERUM 0.71 MG/DL (0.60-1.30)
--- NOTE | 2021-11-26 17:17 | Diagnostic Imaging Report ---
CT angiogram of the neck with contrast. INDICATION: Carotid artery stenosis. Correlation made with prior CT of the head from 12/20/2018. TECHNIQUE: After intravenous administration of contrast, thin section axial CT angiography of the neck was performed. Multiple reformats were provided including coronal and sagittal reformats as well as MIPS reconstructions and 3-D views. All CT scans use one or more of the following dose optimizing techniques: automated exposure control, MA and/or KvP adjustment based on patient size and exam type or iterative reconstruction.. FINDINGS: There is atherosclerotic plaquing within the aortic arch without findings of aneurysm or dissection. There is approximately 50% stenosis of the origin of the left common carotid artery. There is also approximately 50-60% stenosis of the proximal left subclavian. There appears to be high-grade atherosclerotic stenosis of the origin of both of the vertebral arteries. The common carotid arteries demonstrate some scattered plaquing without high-grade stenosis. There is advanced atherosclerotic disease at the left carotid bulb extending into the proximal left internal carotid artery that results in approximately 90% stenosis by NASCET criteria. Beyond this stenosis there is a patent contrast opacification of the left internal carotid artery. On the right, there are previous surgical changes of a right-sided carotid endarterectomy with no residual stenosis evident. Beyond their origins the vertebral arteries within the neck appear patent without evidence of luminal irregularity or dissection. Intracranially there is moderate narrowing of the cavernous segment of both of the internal carotid arteries secondary to atherosclerotic disease as well as moderate narrowing of the clinoid segments. There is patent flow to the carotid terminus with normal opacification of the M1 segment of both the middle cerebral arteries. The anterior cerebral arteries also patent. The intracranial vertebral arteries demonstrate less than 50% stenosis. The posterior inferior cerebral arteries are patent. The basilar is patent. There is flow within the bilateral superior cerebellar arteries and within both of the posterior cerebral arteries. The visualized dural venous sinuses are patent. There are no findings of pathologic intracranial enhancement. The soft tissues of the neck demonstrate no acute process. Cervical spine demonstrates previous ACDF of C4-C6. There is no acute cervical spine abnormality. Lung apices are clear. There are features of centrilobular emphysema. IMPRESSION: 1. High-grade stenosis of the left carotid bifurcation estimated at 90% or greater by NASCET criteria. 2. Previous right-sided carotid endarterectomy without recurrent stenosis. 3. High-grade stenosis at the origin of both of the vertebral arteries. There additionally is atherosclerotic stenosis present at the origin of the left common carotid artery and within the proximal left subclavian artery estimated at 50-60%. 4. No findings of dissection within the neck. 5. Intracranial atherosclerotic disease within the carotid siphons and vertebral arteries. There is no intracranial large vessel occlusion. 6. Previous cervical ACDF with multilevel degenerative disc disease. 7. Centrilobular emphysema. Dictated by: Dictated on workstation # [id number]
== END ==
LOC: CARD 14:00
PROVIDERS: ATTEND Physician Assistant
DX: J43.2 Centrilobular emphysema (principal); I10 Essential (primary) hypertension; I25.10 Atherosclerotic heart disease of native coronary artery without angina pectoris; I65.22 Occlusion and stenosis of left carotid artery; I65.03 Occlusion and stenosis of bilateral vertebral arteries; Z98.890 Other specified postprocedural states
CPT/HCPCS: 36415; 70498; 82565; 84520; 93306

== ENCOUNTER → 2022-01-29 | Outpatient (CLI) | payer MEDICARE, OTHER ==
[~2022-01-29] MED LIST changes: -CATHETER FLUSH 10 ML SYR IV PRN; -HOLD METFORMIN - RECEIVED CONTRAST 20 ML VIAL IV SCH; -IOHEXOL 350 MG/ML 100 ML (OMNIPAQUE 350) VIAL IV ONE; -NS 100 ML (IVPB) BAG IV ONE
[2022-01-29 10:29] LABS: BILIRUBIN,URINE NEGATIVE (NEGATIVE); CLARITY,URINE CLEAR; COLOR,URINE YELLOW; GLUCOSE, URINE (UA) NEGATIVE (NEGATIVE); KETONES,URINE NEGATIVE (NEGATIVE); LEUKOCYTE ESTERASE ,URINE 1+ (NEGATIVE); NITRITE,URINE NEGATIVE (NEGATIVE); PROTEIN,URINE NEGATIVE (NEGATIVE)
[2022-01-29 10:53] LABS: BACTERIA,URINE FEW /HPF
== END ==
LOC: LAB 10:01
PROVIDERS: ATTEND Thoracic Surgery (Cardiothoracic Vascular Surgery)
DX: Z01.812 Encounter for preprocedural laboratory examination (principal); N39.0 Urinary tract infection, site not specified; I65.23 Occlusion and stenosis of bilateral carotid arteries
CPT/HCPCS: 81000; 87077; 87088; 87186

== ENCOUNTER → 2022-03-09 | Outpatient (CLI) | payer MEDICARE, OTHER ==
--- NOTE | 2022-03-09 12:27 | Diagnostic Imaging Report ---
INDICATION: Routine screening. COMPARISON: 02/18/2021 and 03/31/2018. TECHNIQUE: 2D and 3D bilateral screening mammography was performed with CAD. FINDINGS: Scattered fibroglandular densities are identified bilaterally. Benign calcifications are scattered throughout both breasts. No mass or malignant-appearing microcalcifications are identified. The axillae are unremarkable. IMPRESSION: No mammographic features suspicious for malignancy are identified. ACR BI-RADS Category 2: Benign findings. Result letter will be mailed to the patient. Note: At least 10% of breast cancer is not imaged by mammography. Dictated by: Dictated on workstation # [id number]
== END ==
LOC: RAD 09:54
PROVIDERS: ATTEND Nurse Practitioner Family
DX: Z12.31 Encounter for screening mammogram for malignant neoplasm of breast (principal)
CPT/HCPCS: 77063; 77067

== ENCOUNTER → 2022-05-12 | Outpatient (CLI) | payer MEDICARE, OTHER ==
--- NOTE | 2022-05-12 16:46 | Diagnostic Imaging Report ---
INDICATION: Cough and wheezing PA and lateral chest obtained at 4:09 hours p.m. Heart and mediastinal silhouette are normal in appearance. There is some mild infiltrate in the left lung base with obscuration of the left hemidiaphragm. Right lung is clear. There is no pneumothorax or pleural fluid. IMPRESSION: Mild left basilar infiltrate which may represent pneumonia. Followup is recommended. Dictated by: Dictated on workstation # [id number]
== END ==
LOC: RAD 15:46
PROVIDERS: ATTEND Nurse Practitioner Family
DX: R91.8 Other nonspecific abnormal finding of lung field (principal); R06.2 Wheezing; R05.9 Cough, unspecified
CPT/HCPCS: 71046

== ENCOUNTER → 2022-07-13 | Outpatient (CLI) | payer MEDICARE, OTHER | LOC: CARD 13:13 | PROVIDERS: ATTEND Internal Medicine Cardiovascular Disease | DX: I11.9 Hypertensive heart disease without heart failure (principal); I25.10 Atherosclerotic heart disease of native coronary artery without angina pectoris | CPT/HCPCS: 93306 ==

== ENCOUNTER → 2022-07-15 | Outpatient (CLI) | payer MEDICARE, OTHER ==
[~2022-07-15] MED LIST changes: +CATHETER FLUSH 10 ML SYR IVP PRN; +REGADENOSON 0.4 MG/5 ML SYR (LEXISCAN) IV ONE
[2022-07-15 12:43] VITALS: BP 205/91
--- NOTE | 2022-07-15 14:54 | Cardiology Stress Test Report ---
Stress Test Report Date of Procedure/Referring: Date of Procedure: Jul 15, 2022 PCP Michaela Kessler MD Admitting Physician Admitting Physician: Attending Physician: Too Hauser MD Indications: CP Baseline Heart Rate: 80 Baseline Blood Pressure: Blood Pressure Systolic: 205 Blood Pressure Diastolic: 91 Baseline Vitals Vital Signs Date Time Temp Pulse Resp B/P (MAP) Pulse Ox O2 Delivery O2 Flow Rate FiO2 07/15/22 12:43 80 205/91 (129) Baseline EKG: Baseline EKG: NSR Summary After explaining the procedure to the patient, she signed a consent and then brought to the stress nuclear laboratory. Patient received 0.4 mg Lexiscan for stress test, ECG, heart rate and blood pressure were monitored continuously. Resting and stress dose of radio tracer were injected, imaging was acquired and reviewed in short axis, horizontal long axis and vertical long axis views. TID: 1.1 SSS: 8 SDS: 6 EF: 84 Patient tolerated Lexiscan well Breast attenuation with reversible ischemia involving the anterior wall and anterior lateral wall Normal left ventricular size, ejection fraction 84% Copy Copies To 1: MICHAELA KESSLER MD, BASHAR J MD Jul 15, 2022 14:54
== END ==
LOC: CARD 11:30
PROVIDERS: ATTEND Internal Medicine Cardiovascular Disease
DX: I25.10 Atherosclerotic heart disease of native coronary artery without angina pectoris (principal)
CPT/HCPCS: 78452; 93017; A9502

== ENCOUNTER 2022-07-29 07:46 | Day surgery (SDC) | payer MEDICARE, OTHER ==
[2022-07-29] VITALS (9 sets, daily range): BP systolic 125–173; BP diastolic 60–114
[~2022-07-29] VITALS: Ht 170.2 cm; Wt 94.8 kg
[~2022-07-29 07:46] MED LIST changes: -CATHETER FLUSH 10 ML SYR IVP PRN; -REGADENOSON 0.4 MG/5 ML SYR (LEXISCAN) IV ONE
[2022-07-29] MEDS ORDERED: LIDOCAINE 1% INJ 20 ML VIAL ONE (07:51)
[2022-07-29] MEDS ORDERED: HEParin (CATH LAB) 2,000 ML IV ONE (07:52)
[2022-07-29] MEDS ORDERED: NS IV 1000 ML 1,000 ML ONE (07:52)
[2022-07-29] MEDS ORDERED: NS IV 1000 ML 1,000 ML IV SCH ×2 (08:00→10:45)
--- NOTE | 2022-07-29 08:22 | Diagnostic Imaging Report ---
EXAM: CHEST 1 VIEW, AP/PA ONLY INDICATION: Abnormal stress test. COMPARISON: 12/04/2018. FINDINGS: Normal heart size and central pulmonary vascularity. Lungs are clear. No pleural effusion or pneumothorax. No acute osseous findings. IMPRESSION: No acute cardiopulmonary findings. Dictated by: Dictated on workstation # [id number]
--- NOTE | 2022-07-29 08:38 | Cardiac Procedure Note-CS/ASA ---
Pre-Procedure Note Pre-Op Procedure Note Date of Available H&P: Jul 20, 2022 Date H&P Reviewed: Jul 29, 2022 Time H&P Reviewed: 08:38 History & Physical: H&P Reviewed, Patient Examed, No changes noted Pre-Operative Diagnosis: CAD Moderate Sedation PreProcedure Time 08:38 ASA Score 3 Airway Lungs Heart ASA score ASA 1: a normal healthy patient ASA 2: a patient with a mild systemic disease (mid diabetes, controlled hypertension, obesity ASA 3: a patient with a severe systemic disease that limits activity (angina, COPD, prior Myocardial infarction) ASA 4: a patient with an incapacitating disease that is a constant threat to life (CHF, renal failure) ASA 5: a moribund patient not expected to survive 24 hrs. (ruptured aneurysm) ASA 6: a declared brain- patient whose organs are being harvested. For emergent operations, add the letter E after the classification Mallampati Classification Grade 3 Sedation Plan Analgesia, Amnesia, Plan communicated to team members, Discussed options with patient/fam, Discussed risks with patient/fam The patient is an appropriate candidate to undergo the planned procedure, sedation, and anesthesia. The patient immediately re-assessed prior to indication. YANCY MAC MD Jul 29, 2022 08:38
[2022-07-29 08:49] LABS: HEMATOCRIT 40 % (35-52); HEMOGLOBIN 13.3 g/dL (11.5-16.0); MEAN CORPUSCULAR HEMOGLOBIN 30 pg (25-34); MEAN CORPUSCULAR HGB CONC 33 g/dL (32-36); MEAN CORPUSCULAR VOLUME 89 fL (80-99); MEAN PLATELET VOLUME 8.9 fL (9.0-12.2); PLATELET COUNT 231 10^3/uL (130-400); WHITE BLOOD COUNT 5.8 10^3/uL (4.3-11.0)
[2022-07-29] MEDS ORDERED: MULT-1060 PO (08:59)
[2022-07-29] MEDS ORDERED: ATOR20TA66 PO (08:59)
[2022-07-29] MEDS ORDERED: AMLO-251 PO (08:59)
[2022-07-29] MEDS ORDERED: CALC600T91 PO (08:59)
[2022-07-29] MEDS ORDERED: GABA-486 PO ×2 (08:59)
[2022-07-29] MEDS ORDERED: TIOT18CA2 IH (08:59)
[2022-07-29] MEDS ORDERED: BIOT5TAB PO (08:59)
[2022-07-29] MEDS ORDERED: LOSA100T57 PO (08:59)
[2022-07-29] MEDS ORDERED: CLOP75TA28 PO (08:59)
[2022-07-29] MEDS ORDERED: OMEG100032 PO (08:59)
[2022-07-29] MEDS ORDERED: RT-ALBUINH INH (08:59)
[2022-07-29] MEDS ORDERED: CARV25TA PO ×2 (08:59→09:10)
[2022-07-29] MEDS ORDERED: ASPI-1238 PO (08:59)
[2022-07-29] MEDS ORDERED: FOLI0.4T6 PO (08:59)
[2022-07-29] MEDS ORDERED: IBUP-2473 PO (08:59)
[2022-07-29 09:02] LABS: PROTHROMBIN TIME PATIENT 13.6 SEC (12.2-14.7)
[2022-07-29 09:04] LABS: BILIRUBIN,TOTAL 0.4 MG/DL (0.1-1.0); CALCIUM 9.4 MG/DL (8.5-10.1); CREATININE SERUM 0.62 MG/DL (0.60-1.30); POTASSIUM 3.8 MMOL/L (3.6-5.0); TOTAL PROTEIN 7.1 GM/DL (6.4-8.2)
[2022-07-29] MEDS ORDERED: SEMA0.25 SQ (09:10)
[2022-07-29] MEDS ORDERED: VERAPAMIL 5 MG/2 ML (CALAN) VIAL IV ONE (09:36)
[2022-07-29] MEDS ORDERED: NITRO DRIP 25000 MCG/D5W 250 ML IV ONE (09:36)
[2022-07-29] MEDS ORDERED: HEParin 1000 UNIT/ML (10ML VIAL) FOR BOLUS ONE (09:36)
[2022-07-29] MEDS ORDERED: fentaNYL INJ 100 MCG/2 ML AMP ONE (09:36)
[2022-07-29] MEDS ORDERED: MIDAZOLAM 5 MG/5 ML (VERSED) VIAL ONE (09:36)
--- NOTE | 2022-07-29 10:32 | Discharge Inst-Post CATH ---
Discharge Inst-CATH/EP Problems Reviewed?: Yes Post Cardiac Cath/EP D/C Inst Follow Up/Plan Appointment with Dr. Hauser's office in 2 to 4 weeks <b>CARDIAC CATH/EP PROCEDURE DISCHARGE INSTRUCTIONS</b> ACTIVITY * Go Home directly and rest. * Limit activity of the leg (or wrist if it was used) for 7 days including aer obics, swimming, jogging, bicycling, etc. * Restrict stair-climbing for 7 days if possible, if not, climb up with your non-cath leg, then bring together on the same step. * Avoid lifting, pushing, pulling or excessive movement of the affected extremi ty for 7 days. * Customary sexual activity may be resumed after 2 days-use caution not to use a position that strains or causes pain to the affected extremity. * No driving for 24 hours. * NO SMOKING. * Avoid straining for bowel movements for 7 days. * Gentle walking on level ground is allowed. * Returning to work will depend on the type of procedure and the results. Your doctor will discuss this with you. CALL YOUR DOCTOR FOR ANY OF THE FOLLOWING: *If bleeding from the puncture site occurs- Apply gentle pressure to site with clean cloth and call your doctor or EMS. * If a knot or lump forms under the skin, increases in size, or causes pain. * If bruising appears to be worsening or moving further down your leg instead of disappearing. * Temperature above 101 F. CARE OF YOUR GROIN INCISION; * Bruising or purple discoloration of the skin near the puncture site is common. * You may shower only, no bathtub bathing for 5 days. Be careful to avoid slipping as your leg may feel stiff. * If a closure device was used on your femoral artery, please see the attached guide regarding care of the device and your leg. * Leave dressing on FOR 24 hours. CARE OF YOUR WRIST INCISION; * Bruising or purple discoloration of the skin near the puncture site is common. * You may shower. * DO NOT submerge wrist. * Leave dressing on FOR 24 hours. YANCY HAUSER MD Jul 29, 2022 10:32
--- NOTE | 2022-07-29 10:36 | Cardiac Cath Report ---
Cardiac Cath Report Physician (s)/Hospital Secretary (s) Physician YANCY MAC MD Pre-Procedure Diagnosis Pre-Procedure Diagnosis: CAD Post-Procedure Note Procedure Start Date: Jul 29, 2022 Name of Procedure: Left heart catheterization Findings/Procedure Note PROCEDURE NOTE: 76-year-old lady with history of hypertension, hyperlipidemia, had an abnormal stress test, scheduled for cardiac catheterization possible PTCA. After explaining the procedure to the patient, all pros and cons were explained, all questions were answered. The patient signed the consent and then she was placed in the cardiac catheterization laboratory. Groin was prepped in SL fashion local anesthesia was used. Sheath placed in the right radial artery, [place] catheter was used, advanced to the left ventricular cavity, pressure was measured, pullback LV to aorta was done, engage the right and left coronary system and angiogram was done. At the end of the procedure the sheath was removed. Vascular band was used FINDINGS: Hemodynamics LV 125/21, end-diastolic pressure of 21 Aorta 123/57 mean of 74 ANATOMY: Left Main is free of obstructive disease Left Anterior Descending is calcified artery proximally with 30 to 40% stenosis nonobstructive disease Left Circumflex is moderate in size with no significant obstructive disease Ramus intermedius/high obtuse marginal branch is moderate in size with myocardial bridging in the mid portion nonobstructive disease Right Coronary Artery is a large dominant artery with 40 to 50% stenosis at the mid right coronary artery nonobstructive disease LV Gram was not done, pressure was measured Dominance right coronary artery CONCLUSION: Mild to moderate coronary artery disease, calcified proximal LAD. 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
== END 2022-07-29 12:55 | disposition home or self-care (01) ==
LOC: CATH 07:46 → SDC 10:39 → CATH 12:55
PROVIDERS: ATTEND Internal Medicine Cardiovascular Disease
DX: I25.10 Atherosclerotic heart disease of native coronary artery without angina pectoris (principal); E78.2 Mixed hyperlipidemia; E66.9 Obesity, unspecified; I42.0 Dilated cardiomyopathy; I70.8 Atherosclerosis of other arteries; I34.0 Nonrheumatic mitral (valve) insufficiency; I11.9 Hypertensive heart disease without heart failure; J44.9 Chronic obstructive pulmonary disease, unspecified; I65.29 Occlusion and stenosis of unspecified carotid artery; Z68.32 Body mass index [BMI] 32.0-32.9, adult; Z87.891 Personal history of nicotine dependence
CPT/HCPCS: 71045; 80053; 85027; 85610; 85730; 87081; 93005; 93458; C1894; 36415